=== PATIENT | female | born 1955 | race Caucasian/White ===

== ENCOUNTER 2021-05-12 13:54 | Inpatient (IN) | payer BC, SELFPAY ==
[2021-05-12] VITALS (13 sets, daily range): BP systolic 132–150; BP diastolic 71–86; PULSE 78–96; RESP 18; TEMP 36.8–37; O2SAT 90–100; BMI 52.0
--- NOTE | ~2021-05-12 | XR_ITS ---
XR chest 1V portable 05/22/2021 06:36 Indication: Respiratory failure Procedure: AP portable chest Comparison: Comparison to multiple prior studies sequentially, with oldest reviewed study dated 05/17. Findings: Cardiomegaly. Persistent patchy bilateral airspace. Right perihilar atelectasis. No signifi cant effusion or pneumothorax. Central line tip in the SVC. No pneumothorax. Impression: 1: Persistent bilateral airspace disease which may represent pneumonia and/or edema. 2: Cardiomegaly. Reviewed, dictated and finalized at location A. Impression: 1: Persistent bilateral airspace disease which may represent pneumonia and/or e veronica. 2: Cardiomegaly.
--- NOTE | ~2021-05-12 | XR_ITS ---
XR abdomen NG/feed tube insert DATE: 05/13/2021 06:24 INDICATION: Orogastric tube placement TECHNIQUE: Portable AP view on 05/09/2021 at 0613 hours COMPARISON: 05/13/2021 portable KUB at 0329 hours FINDINGS: The orogastric tube is present within the stomach. ET tube 6.5 cm above maolu Right internal jugular central venous catheter tip overlies superior vena cava. Severe bilateral consolidating pulmonary infiltrates are again noted. IMPRESSION: Orogastric tube in stomach Reviewed, dictated and finalized at Location A. Reviewed, dictated and finalized at location A. IMPRESSION: Orogastric tube in stomach
--- NOTE | ~2021-05-12 | XR_ITS ---
XR chest 1V portable DATE: 05/16/2021 05:40 INDICATION: Diffuse bilateral infiltrates TECHNIQUE: Portable AP chest on 05/16/2021 at 0506 hours COMPARISON: 05/15/2021 portable AP chest at 0517 hours FINDINGS: Cardiomegaly. Extensive bilateral pulmonary infiltrates predominating in the central and lower lung zones, with air bronchograms in the left retrocardiac area consistent with left lower lobe atelectasis and/or consol idation. Allowing for differences in degree of lung expansion, infiltrates appear relatively stable o r mildly increased since 05/15/2021. ET tube approximately 5.5 cm above malou. NG tube is noted passing into stomach. Right internal jugular central venous catheter tip overlies the superior vena cava. No pneumothorax. IMPRESSION: Stable or mildly increased bilateral pulmonary infiltrates since 05/15/2021 Reviewed, dictated and finalized at location A. IMPRESSION: Stable or mildly increased bilateral pulmonary infiltrates since 08/2021
--- NOTE | ~2021-05-12 | US_ITS ---
EXAMINATION: US venous doppler [facility] DATE: 05/12/2021 14:52 INDICATION: Lower limb swelling. TECHNIQUE: Grayscale ultrasound images without and with compression and Doppler ultrasound images of the bilateral lower extremity veins were obtained. COMPARISON: None. FINDINGS: The visualized portions of right common femoral vein, profunda (deep) femoral vein, femoral vein, pop liteal vein, peroneal veins, posterior tibial veins, and greater saphenous vein outflow are patent. The visualized portions of left common femoral vein, profunda femoral vein, femoral vein, popliteal v ein, peroneal veins, posterior tibial veins, and greater saphenous vein outflow are patent. IMPRESSION: 1. No deep venous thrombosis. Reviewed, dictated and finalized at location A.
--- NOTE | ~2021-05-12 | XR_ITS ---
XR abdomen NG/feed tube insert DATE: 05/13/2021 03:40 INDICATION: Orogastric tube placement TECHNIQUE: Portable AP view on 05/13/2021 at 0329 hours COMPARISON: None FINDINGS: The orogastric tube is not visualized within the lower chest or abdomen. Prominent gaseous distention of the stomach. Gaseous distention of multiple small bowel segments. IMPRESSION: Orogastric tube not visualized in the distal esophagus or stomach Reviewed, dictated and finalized at Location A. Reviewed, dictated and finalized at location A.
--- NOTE | ~2021-05-12 | XR_ITS ---
XR chest 1V portable 05/21/2021 06:07 Indication: Respiratory failure Procedure: AP portable chest Comparison: Comparison to multiple prior studies sequentially, with oldest reviewed study dated 05/16. Findings: Endotracheal tube tip 4 cm above the malou. NG tube in the stomach. Right IJ central line tip in SVC. Persistent patchy bilateral airspace disease unchanged. Possible small left effusion. No pneumothorax. No acute osseous abnormality. Impression: 1: No significant change to patchy bilateral airspace disease, compatible with pneumonia. Reviewed, dictated and finalized at location A. Impression: 1: No significant change to patchy bilateral airspace disease, compatible with pneumonia.
--- NOTE | ~2021-05-12 | XR_ITS ---
XR chest port-a-cath/central DATE: 05/13/2021 06:18 INDICATION: Central line placement TECHNIQUE: Portable AP chest on 05/13/2021 at 0607 hours COMPARISON: 05/13/2021 portable AP chest at 0 326 hours FINDINGS: ET tube is approximately 6.3 cm above malou; ideal range is 2-5 cm. Right internal jugular central venous catheter tip overlies the superior vena cava. Again noted are extensive severe bilateral consolidating pulmonary infiltrates, right greater than le ft. There is mild prominence of the minor fissure suggesting subpleural edema. No pneumothorax. Probable cardiomegaly. Aortic arch calcification. IMPRESSION: Right internal jugular central venous line placement, distal tip overlying superior vena cava ET tube 6.3 cm above malou; ideal range is 2-5 cm Persistent severe bilateral consolidating pulmonary infiltrates, right greater than left, prominence of the minor fissure, suggesting subpleural edema. Consider extensive pulmonary edema. Pneumonia is n ot excluded. Reviewed, dictated and finalized at Location A. Reviewed, dictated and finalized at location A. IMPRESSION: Right internal jugular central venous line placement, distal tip ov erlying superior vena cava ET tube 6.3 cm above malou; ideal range is 2-5 cm Persistent severe bilateral consolidating pulmonary infiltrates, right greater than left, prominence of the minor fissure, suggesting subpleural edema. Consid er extensive pulmonary edema. Pneumonia is not excluded.
--- NOTE | ~2021-05-12 | XR_ITS ---
EXAMINATION: XR chest 1V portable INDICATION: Diffuse bilateral infiltrates, respiratory failure TECHNIQUE: Portable AP chest at 0539 hours COMPARISON: 05/17/2021 FINDINGS: The endotracheal tube ends approximately 5.8 cm above the malou. The nasogastric tube is f ollowed as far as the stomach. Its tip is beyond the inferior margin of the radiograph. A right inter nal jugular catheter ends with its tip in the superior vena cava. Cardiomegaly is noted. Diffuse airs pace opacities persist without significant change. More focal opacification is seen in the left lung base. There is no pleural effusion or pneumothorax. IMPRESSION: 1. Stable diffuse lung disease, consistent with pneumonia and/or pulmonary edema and/or acute respira tory distress syndrome (ARDS). 2. More focal opacity of the left lung base is consistent with atelectasis versus pneumonia. Reviewed, dictated and finalized at location A. IMPRESSION: 1. Stable diffuse lung disease, consistent with pneumonia and/or pulmonary anel a and/or acute respiratory distress syndrome (ARDS). 2. More focal opacity of the left lung base is consistent with atelectasis vers us pneumonia.
--- NOTE | ~2021-05-12 | US_ITS ---
EXAMINATION: US abdomen limited DATE: 05/15/2021 12:49 INDICATION: Elevated liver function tests TECHNIQUE: Multiple grayscale and Doppler ultrasound images of the abdomen were obtained. COMPARISON: None available FINDINGS: The examination is significantly limited by the patient's body habitus and inability to fol low commands due to critical illness. Bowel gas obscures visualization of the pancreas. The visualize d portions of the pancreas are unremarkable. The liver demonstrates increased echogenicity, heterogen ous echotexture, and decreased through transmission. No surface nodularity. Normal hepatopetal flow i n the main portal vein. The gallbladder is grossly normal with no abnormal wall thickening, perichole cystic fluid or stones. The normal common bile duct measures 7 mm. Sonographic Blackwood sign is not ass essed due to patient condition. IMPRESSION: 1. Diffuse hepatic steatosis. Reviewed, dictated and finalized at location B.
--- NOTE | ~2021-05-12 | XR_ITS ---
XR chest 1V portable 05/24/2021 09:35 Indication: Shortness of breath Procedure: AP portable chest Comparison: 05/18/2021 Findings: Interval removal of central line. Cardiomegaly. There is improving bibasilar airspace disea se.. There is atherosclerosis and ectasia of the aorta. Impression: 1: Improving bibasilar airspace disease. Reviewed, dictated and finalized at location A. Impression: 1: Improving bibasilar airspace disease.
--- NOTE | ~2021-05-12 | XR_ITS ---
XR chest 1V portable DATE: 05/13/2021 02:56 INDICATION: Respiratory distress. Tancred frothy sputum. TECHNIQUE: Portable AP chest on 05/23/2021 at 0242 hours COMPARISON: None FINDINGS: Cardiomegaly. There are extensive bilateral consolidating pulmonary infiltrates, worse on t he right, with opacified right upper lobe with air bronchograms. Findings may be due to extensive mando ateral pneumonia and/or pulmonary edema. Cardiomegaly. There is minimal if any pleural effusion evident. No pneumothorax. IMPRESSION: Severe bilateral consolidating pulmonary infiltrates, right greater than left Reviewed, dictated and finalized at location A.
--- NOTE | ~2021-05-12 | US_ITS ---
EXAMINATION: US renal BI DATE: 05/14/2021 09:27 INDICATION: Acute kidney injury. TECHNIQUE: Multiple ultrasound grayscale images of the kidneys were obtained. COMPARISON: None. FINDINGS: The right kidney measures 9.3 x 4.7 x 5.7 cm. The left kidney measures 9.0 x 4.5 x 5.5 cm. The kidney s demonstrate normal parenchymal echogenicity. There is no hydronephrosis. The bladder is decompresse d by a Sommer catheter. IMPRESSION: 1. Normal kidney sizes. No hydronephrosis. Reviewed, dictated and finalized at location A.
--- NOTE | ~2021-05-12 | CT_ITS ---
EXAMINATION: CT brain wo con DATE: 05/26/2021 12:33 INDICATION: Left leg paresis TECHNIQUE: Computed tomography (CT) of the head was performed without intravenous contrast. The mA wa s adjusted according to patient size. Iterative reconstruction technique was employed. Exam dose: 68 1.00 mGy-cm total exam DLP. COMPARISON: None FINDINGS: Bilateral carotid siphon internal carotid artery calcification. No intracranial mass lesion or hemorrhage or cerebrovascular accident is evident. CT is not sensitive for detection of hyperacute nonhemorrhagic cerebrovascular accident. No midline shift or mass effect. There is moderate central and cortical cerebral atrophy. No subdural or epidural hematoma. No orbital mass lesion. There is soft tissue thickening in the dependent aspect of both sphenoid sinuses. The included parana debbie sinuses and the mastoid air cells are otherwise unremarkable. No fracture or bone destruction of the cranial vault. IMPRESSION: Cerebral atherosclerosis Moderate central and cortical cerebral atrophy Reviewed, dictated and finalized at Location A. Reviewed, dictated and finalized at location A.
--- NOTE | ~2021-05-12 | XR_ITS ---
XR chest 1V portable DATE: 05/14/2021 05:58 INDICATION: Diffuse bilateral infiltrates. Respiratory distress. TECHNIQUE: Portable AP chest on 05/14/2021 at 0530 hours COMPARISON: 05/13/2021 portable AP chest at 0607 hours FINDINGS: ET tube 6.3 cm above malou; ideal range is 2-5 cm. NG tube in stomach. Right internal urin bridget centimeters catheter tip overlies the superior vena cava. There are extensive bilateral pulmonary infiltrates patchy consolidation involving particularly the r ight upper and lower lung zones and left lower lung zone. The infiltrates are mildly improved on the right. There is minimal if any pleural effusion. No pneumothorax. IMPRESSION: Mild improvement in right-sided infiltrate since 05/23/2021 Reviewed, dictated and finalized at location A.
--- NOTE | ~2021-05-12 | XR_ITS ---
XR chest ET placement DATE: 05/13/2021 03:40 INDICATION: Respiratory distress, pink frothy sputum TECHNIQUE: Portable AP chest on 05/13/2021 at 0326 hours COMPARISON: 05/13/2021 portable AP chest at 0242 hours FINDINGS: ET tube in satisfactory position 4.3 cm above malou. An NG tube is introduced to the mid t horacic esophagus and then makes a U-turn and proceeds cephalad. Again noted are severe bilateral consolidating pulmonary infiltrates. IMPRESSION: Malpositioned NG tube which makes a U-turn in the mid thoracic esophagus. Repositioning i s recommended. ET tube in satisfactory position Persistent severe bilateral consolidating pulmonary infiltrates Reviewed, dictated and finalized at Location A. Reviewed, dictated and finalized at location A. IMPRESSION: Malpositioned NG tube which makes a U-turn in the mid thoracic esop hagus. Repositioning is recommended. ET tube in satisfactory position Persistent severe bilateral consolidating pulmonary infiltrates
--- NOTE | ~2021-05-12 | XR_ITS ---
XR chest 1V portable 05/20/2021 06:33 Indication: Respiratory failure Procedure: AP portable chest Comparison: Comparison to multiple prior studies sequentially, with oldest reviewed study dated 05/15. Findings: Cardiomegaly. Diffuse bilateral airspace disease unchanged. Focal right perihilar atelectas is. Endotracheal tube tip 4.6 cm above the malou. NG tube in the stomach. Right IJ central line tip in the SVC. Cardiomegaly. Possible small left effusion. No pneumothorax. Impression: 1: Unchanged diffuse bilateral airspace which may represent pneumonia or edema. 2: Cardiomegaly. Reviewed, dictated and finalized at location A. Impression: 1: Unchanged diffuse bilateral airspace which may represent pneumonia or edema. 2: Cardiomegaly.
--- NOTE | ~2021-05-12 | XR_ITS ---
XR chest 1V portable DATE: 05/17/2021 05:56 INDICATION: Diffuse bilateral infiltrates TECHNIQUE: Portable AP chest on 05/17/2021 at 0516 hours COMPARISON: 05/16/2021 portable AP chest at 0506 hours FINDINGS: ET tube tip approximately 5.7 cm above malou; ideal range is 2-5 cm. NG tube passing into stomach. Right internal jugular central venous catheter tip overlies the superio r vena cava. No evidence of pneumothorax. Extensive patchy bilateral pulmonary infiltrates are again noted, mildly improved since 05/16/2021. Ag ain noted is increased left retrocardiac density with micrograms consistent with left lower lobe atel ectasis/consolidation. IMPRESSION: Mild improvement of bilateral infiltrates since 05/16/2021; persistent left lower lobe ate lectasis/consolidation Reviewed, dictated and finalized at location A. IMPRESSION: Mild improvement of bilateral infiltrates since 05/16/2021; persiste nt left lower lobe atelectasis/consolidation
--- NOTE | ~2021-05-12 | XR_ITS ---
XR chest 1V portable DATE: 05/15/2021 05:37 INDICATION: Diffuse bilateral infiltrates TECHNIQUE: Portable AP chest on 05/15/2021 at 0517 hours COMPARISON: 05/14/2021 portable AP chest at 0530 hours FINDINGS: ET tube in satisfactory position 7 cm above malou; ideal range is 2-5 cm.. NG tube in stom ach. Right internal jugular central venous catheter tip overlies the superior vena cava. Cardiomegaly. Aortic arch calcification. There are are extensive bilateral pulmonary infiltrates with particularly prominent atelectasis and/o r consolidation of the left lower lobe with persistent increased retrocardiac density on the left and air bronchograms. There is mild interval improvement of right-sided consolidating infiltrates since 05/14/2021. IMPRESSION: Mild improvement in right-sided infiltrate since 05/14/2021; persistent prominent left low er lobe atelectasis and/or consolidation ET tube 7 cm above malou; ideal range is 205 cm Reviewed, dictated and finalized at location A. IMPRESSION: Mild improvement in right-sided infiltrate since 05/14/2021; persist ent prominent left lower lobe atelectasis and/or consolidation ET tube 7 cm above malou; ideal range is 205 cm
--- NOTE | 2021-05-12 11:35 | ADMGEN ---
This patient, Avelino Soto, was admitted to IMU Room 204-01. Patient/family oriented to hospital policies and general routines including ID bracelet, bed and alarms, visiting hours, pain management, procedures, bathroom and other care routines, personal items, smoking policy, room service/diet, and visiting hours. Information on how to activate the Rapid Response Team has been discussed. Patient/Family are encouraged to report perceived risks to care and to ask questions if they do not understand what they are told or what they should do.
--- NOTE | 2021-05-12 13:01 | PM.IMHP ---
H&P: HPI History of Present Illness Date/Time: 05/12/21 13:01 Chief Complaint: DYSPNEA Narrative: 65-year-old female who recovered from COVID-19 pneumonia in August 2020 was in her usual state of health until the morning of May 12. She awakened at 5:00 a.m. to urinate. She was short of breath walking to and from the bathroom. Upon getting back to her bed and sitting down she began to shake. She had chills and chest tightness. She was nauseated and ?spit up some clear sputum but did not vomit. summoned EMS and she was taken to [facility] in [facility]. She denied recent exposure to ill individuals. No recent travel. 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 No exposure to wild animals or to domestic gated farm animals or pets. Denied drinking untreated water. Drinks city water. She did quit smoking about 15 years ago. She describes herself as a social smoker only a few cigarettes a week. However recently she began they being a 5% nicotine product made by [employer]. She does drink alcohol but only 3 drinks per week. She does not imbibe in any recreational drugs including medical cannabis. Since her COVID-19 illness in August 2020 both she and her have experience chronic fatigue and chronic dyspnea on exertion. She suffers from chronic back pain due to arthritis and chronic T11 through L1 compression fractures. She does not take narcotics. Her diabetes has been fairly well controlled recently. She is also treated for hypertension and hyperlipidemia and gastroesophageal reflux disease. However she denied recent choking or coughing while eating. She has no prior history of lung disease except for episodes of pneumonia in the past. Her last pneumonia vaccination was about 8 years ago. At [facility] she was noted to have an EKG was sinus tachycardia and nonspecific ST changes and an elevated troponin on that increased from baseline 0.071 to 2.0. She was hypoxemic with oxygen saturation 82% it did not improve with non-rebreather mass with did improve with 100% oxygen and BiPAP. Chest x-ray revealed right lung infiltrates. CTA chest revealed no pulmonary embolus but right long consolidation with alveolar septal thickening and air bronchograms prominent throughout the right lung with scattered ground-glass infiltrates in the left lung. [place] [address] 86% neutrophils but no immature forms. Rapid COVID-19 screen negative. BNP was 235. D-dimer 2080. Creatine 18 mg/dl, BUN 184 mg/dl (creainine 1 point over normal range for that lab). Mag 1.0 md/dl and was supplemented at the ED. Review of Systems Review of Systems: All systems reviewed & are unremarkable except as noted in HPI and below PMFSH Past Medical History Medical History Chronic depression Chronic low back pain without sciatica Cirrhosis of liver Closed compression fracture of body of L1 vertebra Compression fracture of body of thoracic vertebra Essential hypertension Former smoker GERD (gastroesophageal reflux disease) Hyperlipidemia Morbid obesity with BMI of 50.0-59.9, adult YADIRA (obstructive sleep apnea) Post-COVID chronic fatigue Type 2 diabetes mellitus with hyperglycemia Vaping nicotine dependence, tobacco product Surgical History Surgical History (Updated 05/12/21 @ 13:30 by Rene Green MD) Hx of cataract removal with insertion of prosthetic lens Hx of cholecystectomy Family History Family History (Updated 05/12/21 @ 14:00 by Rene Green MD) Father Acute myocardial infarction Chronic obstructive pulmonary disease Congestive heart failure Hypertension Alzheimer disease Mother Hypertension ESRD (end stage renal disease) Social History Social History (Updated 05/12/21 @ 14:02 by Rene Green MD) Smoking status: Current every day smoker Tobacco type: e-cigarettes/vaping
[2021-05-12] MEDS: IBUPROFEN 400 MG TABLET PO (13:31)
[2021-05-12 13:37] LABS: Glucose Point of Care 221 mg/dl (65-105)
[2021-05-12] MEDS: LOSARTAN POTASSIUM 12.5 MG TABLET PO (14:03)
[2021-05-12] MEDS: ATORVASTATIN 10 MG TABLET PO (14:03)
[2021-05-12] MEDS: FUROSEMIDE 40 MG TABLET PO (14:03)
[2021-05-12] MEDS: METOPROLOL SUCCINATE EXT REL 50 MG TABCR PO (14:03)
[2021-05-12] MEDS: allopurinoL 100 MG TABLET PO (14:04)
[2021-05-12] MEDS: CITALOPRAM HYDROBROMIDE 10 MG TABLET 40 MG PO (14:04)
[2021-05-12] MEDS: ARIPiprazole 2 MG TABLET PO (14:04)
[2021-05-12 15:45] LABS: Anion Gap 10 mmol/L (8-16); Blood Urea Nitrogen 16 mg/dL (7-17); Carbon Dioxide 24 mmol/L (22-30); Chloride 99 mmol/L (98-107); Estimated CRCL calculation 80 ml/min; Estimated Glomerular Filt Rate > 60; Glucose 291 mg/dL (65-110); Magnesium 1.6 mg/dL (1.6-2.3); Phosphorus 3.1 mg/dL (2.5-4.5); Potassium 4.4 mmol/L (3.4-5.0); Sodium 133 mmol/L (137-145)
[2021-05-12] MEDS: INSULIN ASPART (*BKC) 100 UNITS/ML SUB-Q (16:41)
[2021-05-12 16:42] LABS: Add Urine Microscopic? YES; Appearance Urine Clear (Clear); Bilirubin Urine Negative (Negative); Blood Urine 1+ (Negative); Color Urine Straw (Yellow); Glucose Urine UA 2+ mg/dL (Negative); Ketones Urine Negative (Negative); Leukocyte Esterase Ur Negative LEU/UL (Negative); Mucus Urine Rare /lpf; Nitrate Urine Negative (Negative); Protein Urine 2+ mg/dL (Negative); RBC Urine 0-2 /hpf (0-2); Specific Grav Ur 1.016 (1.001-1.035); Urobilinogen Urine Negative mg/dL (<2.0)
[2021-05-12 17:11] LABS: Glucose Point of Care 308 mg/dl (65-105)
--- NOTE | 2021-05-12 19:37 | PCRCNOTE ---
Pt was sp02 was 81% on CPAP OF 13, FI02 100%, Pt switched to BIPAP per RN request setting 24/07, RR-12, Fi02 100%. ABG order was requested from RT. Pt Sp02 93% on new setting. RT need new order for BIPAP setting. Current VT 819ML, RR-22 bpm, MV-23ML, SP02 94%.
[2021-05-12 21:23] LABS: Glucose Point of Care 364 mg/dl (65-105)
--- NOTE | 2021-05-12 21:33 | PCRCNOTE ---
Pt placed back on CPAP 13 as pervious setting. Pt RR-18, SP02 98%, Fi02 80%. Pt is resting, no SOB or increased WOB present at this time. pt breath sound are bilaterally diminished/coarse. RT suggest breathing TX Q6 for pt care plan.
[2021-05-13] VITALS (45 sets, daily range): BP systolic 64–240; BP diastolic 45–124; PULSE 71–107; RESP 13–77; TEMP 37–37.7; O2SAT 62–100; BMI 48.4
[2021-05-13 02:42] LABS: Alveolar/Arterial O2 Gradient 596.5 mmHg; Base Excess ABG -3.7 mEq/l (+/-2.0); Carboxyhemoglobin 0.4 % THb (0-2.0); Fractional Inspired Oxygen 100 %; HCO3 ABG 26.2 mEq/l (22.0-26.0); Methemoglobin ABG 0.1 %THb (0-1.5); Oxygen Content ABG 15.3 %vol (16.0-22.0); Oxyhemoglobin 73.2 % THb (90.0-100.0); PO2 FiO2 Ratio Arterial Blood 0.46 %; Reduced Hemoglobin 26.3 %THb (0-5.0); Total Hemoglobin 14.9 g/dL (12.0-18.0)
[2021-05-13] MEDS: MORPHINE SULFATE (*CRX) 2 MG/ML INJ IV PUSH (03:02)
[2021-05-13] MEDS: FUROSEMIDE INJ 40 MG/4 ML VIAL IV PUSH ×2 (03:04→06:42)
[2021-05-13 03:13] LABS: PCO2 ABG 70.3 mmHg (35.0-45.0); PO2 ABG 46.2 mmHg (80.0-100.0)
[2021-05-13 03:14] LABS: Modified Allen's Test Pass; Oxygen Saturation ABG 70.7 % (95.0-100.0); Site Drawn RIGHT RADIAL
[2021-05-13 03:15] LABS: Device BIPAP
--- NOTE | 2021-05-13 03:16 | PC.NURSE ---
This patient, Avelino Soto, was transferred to [ ICU 5] on 05/13/21 at 0245. Personal belongings sent with patient. Report given to [Michael skaggs ]. Appropriate documentation sent with patient.
[2021-05-13] MEDS: FENTANYL 2,500MCG/NS250ML(*CRX 2,500 MCG/250 ML BAG 15 MCG IV CONT ×2 (03:30→18:21)
[2021-05-13] MEDS: MIDAZOLAM 100MG/NS 100ML(*CRX) 100 MG/100 ML BAG IV CONT (03:30)
--- NOTE | 2021-05-13 03:34 | WPDPROCEDUR ---
Procedures Intubation Intubation Date: 05/13/21 Intubation Time: 03:10 Consent: PATIENT AGREED TO INTUBATION AND VENTILATOR SUPPORT. A pre-procedural Time-Out was completed immediately before starting the procedure and confirmed: Patient Identification, Site, Procedure, Patient Position and the Availability of Requisite Equipment: Yes Sedative: etomidate Mg given: 30 Paralytic: succinylcholine Mg given: 80 Laryngoscope: fiber optic video scope ET tube size: cuffed Tube secured depth (cm): 23 Tube secured location: lips Tube placement confirmation: visualized tube passing through cords, equal breath sounds bilaterally and confirmation by capnometry Patient tolerated procedure: well and no complications Intubation complications: none
--- NOTE | 2021-05-13 03:37 | PM.IMPN ---
Progress Note: A&P Assessment and Plan (1) Flash pulmonary edema: Code(s): J81.0 - Acute pulmonary edema Status: Acute Assessment and Plan: Patient was on maxed out BiPAP Finally agreed to ventilator support Placed on vent support Discussed with Dr. Chen senior front end developer. Vent management as per senior front end developer/cc (2) Acute respiratory failure with hypoxia: Code(s): J96.01 - Acute respiratory failure with hypoxia Status: Acute Assessment and Plan: On vent support now. (3) CAP (community acquired pneumonia): Qualifiers: Laterality: right Lung location: unspecified part of lung Qualified Code(s): J18.9 - Pneumonia, unspecified organism Code(s): J18.9 - Pneumonia, unspecified organism Status: Acute Assessment and Plan: Will switch to broad espectrum. (4) Type 2 myocardial infarction: Code(s): I21.A1 - Myocardial infarction type 2 Status: Acute Assessment and Plan: ISS as needed (5) Hypomagnesemia: Code(s): E83.42 - Hypomagnesemia Status: Acute Assessment and Plan: Replaced as needed (6) Type 2 diabetes mellitus with hyperglycemia: Qualifiers: Diabetes mellitus fci insulin use: without fci use Qualified Code(s): E11.65 - Type 2 diabetes mellitus with hyperglycemia Code(s): E11.65 - Type 2 diabetes mellitus with hyperglycemia Status: Acute (7) Essential hypertension: Code(s): I10 - Essential (primary) hypertension Status: Acute Assessment and Plan: Continue to monitor (8) YADIRA (obstructive sleep apnea): Code(s): G47.33 - Obstructive sleep apnea (adult) (pediatric) Status: Acute Assessment and Plan: On vent now (9) Post-COVID chronic fatigue: Code(s): R53.82 - Chronic fatigue, unspecified; B94.8 - Sequelae of other specified infectious and parasitic diseases Status: Acute Assessment and Plan: Follow up in the outpatient setting. (10) GERD (gastroesophageal reflux disease): Qualifiers: Esophagitis presence: esophagitis presence not specified Qualified Code(s): K21.9 - Gastro-esophageal reflux disease without esophagitis Code(s): K21.9 - Gastro-esophageal reflux disease without esophagitis Status: Acute Assessment and Plan: Continue PPI (11) Chronic low back pain without sciatica: Qualifiers: Back pain laterality: bilateral Qualified Code(s): M54.5 - Low back pain; G89.29 - Other chronic pain Code(s): M54.5 - Low back pain; G89.29 - Other chronic pain Status: Acute (12) Cirrhosis of liver: Qualifiers: Hepatic cirrhosis type: unspecified hepatic cirrhosis Ascites presence: without ascites Qualified Code(s): K74.60 - Unspecified cirrhosis of liver Code(s): K74.60 - Unspecified cirrhosis of liver Status: Acute Assessment and Plan: Screen for hep B, C (13) Vaping nicotine dependence, tobacco product: Code(s): F17.290 - Nicotine dependence, other tobacco product, uncomplicated Status: Acute Assessment and Plan: NICOTINE PATCH NEEDED (14) Morbid obesity with BMI of 50.0-59.9, adult: Code(s): E66.01 - Morbid (severe) obesity due to excess calories; Z68.43 - Body mass index [BMI] 50.0-59.9, adult Status: Acute Assessment and Plan: NPO NOW (15) Chronic depression: Code(s): F32.9 - Major depressive disorder, single episode, unspecified Status: Acute Subjective Date/time seen: 05/13/21 03:37 Review of Systems Review of Systems: All systems reviewed & are unremarkable except as noted in HPI and below Exam Narrative: SITTING IN UPRIGHT POSITION IN SEVERE RESPIRATORY DISTRESS BiPAP on Const: General: well developed, alert, awake and acute distress Nutritional Appearance: obese centrally obese Orientation/consciousness: patient oriented x3 HENMT: Head: norm
--- NOTE | 2021-05-13 03:52 | PC.NURSE ---
Michael Hernández RN spoke with Dr. Chen regarding current vital signs and vent settings. Start nimbex drip per protocol. 20 hydralazine IV x1, 40 Lasix IV x1. Nitro Drip for BP control.
[2021-05-13] MEDS: CISATRACURIUM BESYLATE 200 MG in DEXTROSE 5% 80 ML 12.78 ML IV CONT (04:00)
[2021-05-13 04:56] LABS: Hematocrit 40.1 % (37.0-47.0); Hemoglobin 12.7 g/dL (12.0-15.0); Mean Corpuscular HGB Conc 31.7 g/dl (32-36); Mean Corpuscular Hemoglobin 30.2 pg (26-34); Mean Corpuscular Volume 95.5 fl (80-100); Mean Platelet Volume 10.4 fl (7.4-10.4); Platelet Count Result 317 k/mm3 (150-375); Red Cell Distribution Width 14.8 % (11.5-14.5); White Blood Count 23.2 K/mm3 (4.5-10.0)
[2021-05-13 04:59] LABS: Alveolar/Arterial O2 Gradient 611.6 mmHg; Base Excess ABG -2.4 mEq/l (+/-2.0); Carboxyhemoglobin 0.5 % THb (0-2.0); Fractional Inspired Oxygen 100 %; HCO3 ABG 24.3 mEq/l (22.0-26.0); Methemoglobin ABG 0.2 %THb (0-1.5); Oxygen Content ABG 16.5 %vol (16.0-22.0); Oxyhemoglobin 84.8 % THb (90.0-100.0); PCO2 ABG 49.3 mmHg (35.0-45.0); PO2 ABG 52.1 mmHg (80.0-100.0); PO2 FiO2 Ratio Arterial Blood 0.52 %; Reduced Hemoglobin 14.5 %THb (0-5.0); Total Hemoglobin 13.9 g/dL (12.0-18.0); pH ABG 7.311 (7.350-7.450)
[2021-05-13 05:00] LABS: Oxygen Saturation ABG 83.5 % (95.0-100.0)
[2021-05-13 05:01] LABS: Arterial Blood Gas Vent Mode PRESSURE CONTROL; Arterial Blood Gas Ventilator rate 24 /MIN; Device VENTILATOR; Modified Allen's Test Pass; Peak Inspiratory Pressure 22 cmH2O; Site Drawn LEFT RADIAL
[2021-05-13 05:02] LABS: Arterial Blood Gas PEEP 17 cmH2O
[2021-05-13 05:04] LABS: Hemoglobin A1C 6.5 % (<5.7)
--- NOTE | 2021-05-13 05:10 | PCRCNOTE ---
Pt intubated at [address] Mata with 7.5 ETT, secured at 23 at the lip. Copious amounts pink frothy sputum suctioned from mouth and ETT. Poor SpO2s at all times. Initial vent settings: PCV 22, RR 24, PEEP 17, and FiO2 100%.
[2021-05-13 05:24] LABS: Alanine Aminotransferase 20 U/L (4-35); Alkaline Phosphatase 158 U/L (38-126); Anion Gap 12 mmol/L (8-16); Aspartate Amino Transferase 46 U/L (14-36); Bilirubin,Total 0.8 mg/dL (0.2-1.3); Blood Urea Nitrogen 22 mg/dL (7-17); Calcium 9.2 mg/dL (8.4-10.2); Carbon Dioxide 23 mmol/L (22-30); Chloride 102 mmol/L (98-107); Estimated CRCL calculation 61 ml/min; Estimated Glomerular Filt Rate 45; Glucose 300 mg/dL (65-110); Magnesium 1.6 mg/dL (1.6-2.3); Potassium 4.2 mmol/L (3.4-5.0); Sodium 137 mmol/L (137-145)
[2021-05-13 05:40] LABS: NT Pro B Type Natriuretic Pept 13400 pg/mL (5-100)
--- NOTE | 2021-05-13 05:47 | ED.PROCEDURE ---
Procedures Central Line Placement Right IJ: Central Line Date: 05/13/21 Central Line Time: 05:48 Patient Position: supine Patient placed on monitor/pulse ox: Yes Provider Prep: mask, sterile gown, sterile gloves, Max. sterile barrier precautions, cap and hand hygiene with conventional soap/water or alcohol based hand rub Central line prep: 2% Chlorhexidine scrub and sterile full body sheet applied Sterile US Technique with sterile gel/sterile probe covers: Yes Central line lumen inserted: triple Post Procedure: sutured in place, good blood return, all ports aspirated, flushed, capped, transparent dressing, securement product and aseptic technique maintained throughout procedure Post procedure x-ray: tip of catheter in good position and no pneumothorax seen Patient tolerated procedure: well Complications: none
[2021-05-13] MEDS: ETOMIDATE 20 MG/10 ML AMPUL 30 MG IV PUSH (06:36)
[2021-05-13] MEDS: ROCURONIUM BROMIDE 50 MG/5 ML VIAL 150 MG IV PUSH (06:37)
[2021-05-13] MEDS: CISATRACURIUM BESYLATE 20 MG/10 ML VIAL 21.3 MG IV PUSH (06:41)
[2021-05-13] MEDS: hydrALAZINE HCL 20 MG/ML VIAL IV PUSH (06:42)
[2021-05-13 06:53] LABS: Free T4 Free Thyroxine Reflex 0.67 ng/dL (0.78-2.19)
[2021-05-13 07:42] LABS: Lactic Acid Reflex 2.4 mmol/L (0.7-2.1)
--- NOTE | 2021-05-13 07:55 | ECG_ITS ---
Measurements Intervals Holden Rate: 86 P: 60 RI: 158 QRS: 74 QRSD: 89 T: 52 QT: 432 QTc: 518 Interpretive Statements SINUS RHYTHM PROLONGED QT INTERVAL ABNORMAL ECG Electronically Signed On 05-13-2021 9:36:19 CDT by Rolan Esquivel D.O.
--- NOTE | 2021-05-13 08:04 | ECHO_ITS ---
Patient Info Name: Avelino Soto Age: 65 years : 1955 Gender: Female Ht: 65 in Wt: 291 lbs BSA: 2.54 m2 HR: 80 bpm BP: 64 / 50 mmHg Heart Rhythm: Sinus Rhythm Technical Quality: Good Exam Date: 05/13/2021 8:47 AM Exam Location: [facility] Pul[facility] Patient Status: Inpatient Admit Date: 05/12/2021 Staff Ordering Physician: Stella Chen MD Bar Tacker: Darian Blackwood, OMAYRA, RT Attending Provider: Rene Green MD Referring Physician: Gustavo TORRES; Exam Type: CA echo doppler color flow Study Info Indications I27.82 - Chronic pulmonary embolism Complete two-dimensional, color flow and Doppler transthoracic echocardiogram is performed. Summary 1. Complete two-dimensional, color flow and Doppler transthoracic echocardiogram is performed. 2. Technically difficult study with limited views. Regional wall motion assessment limited due to poor endomyocardial border definition in several views. 3. Left ventricular chamber dimension is normal. 4. Left ventricular systolic function is normal, estimated at 55-60%. 5. There is moderately increased left ventricular wall thickness. 6. The left ventricular diastolic function is grade II diastolic dysfunction. 7. Right ventricular systolic function is mild to moderately reduced with relative sparing of the apex consistent with Whitehead sign which can be seen with pulmonary embolism and/or right ventricular infarction. Clinical correlation advised.. 8. There is mild aortic valve stenosis with a peak velocity of 205 cm/s, mean gradient of 9 mmHg, and aortic valve area of 1.7 cm2. 9. Mild pulmonary hypertension, estimated pulmonary arterial systolic pressure is 37 mmHg. Left Ventricle Left ventricular chamber dimension is normal. Left ventricular systolic function is normal, estimated at 55-60%. There is moderately increased left ventricular wall thickness. The left ventricular diastolic function is grade II diastolic dysfunction. Technically difficult study with limited views. Regional wall motion assessment limited due to poor endomyocardial border definition in several views. Right Ventricle Right ventricular chamber dimension is normal. Right ventricular systolic function is mild to moderately reduced with relative sparing of the apex consistent with Whitehead sign which can be seen with pulmonary embolism and/or right ventricular infarction. Clinical correlation advised.. Left Atria Left atrial chamber dimension is not well visualized. Right Atria Right atrial chamber dimension is not well visualized. Aortic Valve The aortic valve is not well visualized. There is mild aortic valve stenosis with a peak velocity of 205 cm/s, mean gradient of 9 mmHg, and aortic valve area of 1.7 cm2. There is no aortic valve regurgitation. There is mild aortic valve calcification. Pulmonic Valve The pulmonic valve is not well visualized. There is mild pulmonic regurgitation. Mitral Valve The mitral valve has normal leaflets. There is trace mitral valve regurgitation. The mitral valve annulus is mildly calcified. Tricuspid Valve The tricuspid valve leaflets are not well visualized. There is trace tricuspid valve regurgitation. Mild pulmonary hypertension, estimated pulmonary arterial systolic pressure is 37 mmHg. Pericardium/Pleural The pericardium appears normal. There is small pericardial effusion. Inferior Vena Cava Normal inferior vena cava with >50% collapse upon inspiration consistent with normal right a
[2021-05-13 08:55] LABS: Alveolar/Arterial O2 Gradient 561.9 mmHg; Base Excess ABG -0.6 mEq/l (+/-2.0); Fractional Inspired Oxygen 100 %; HCO3 ABG 25.9 mEq/l (22.0-26.0); Oxygen Content ABG 19.5 %vol (16.0-22.0); Oxygen Saturation ABG 97.2 % (95.0-100.0); Oxyhemoglobin 96.4 % THb (90.0-100.0); PCO2 ABG 49.8 mmHg (35.0-45.0); PO2 ABG 101.3 mmHg (80.0-100.0); PO2 FiO2 Ratio Arterial Blood 1.01 %; Total Hemoglobin 14.3 g/dL (12.0-18.0); pH ABG 7.334 (7.350-7.450)
[2021-05-13 08:57] LABS: Device VENTILATOR; Site Drawn RIGHT BRACHIAL
[2021-05-13 08:58] LABS: Arterial Blood Gas PEEP 15 cmH2O; Arterial Blood Gas Vent Mode PRESSURE CONTROL; Arterial Blood Gas Ventilator rate 24 /MIN; Peak Inspiratory Pressure 22 cmH2O
[2021-05-13] MEDS: HEPARIN SOD/D5W 100 UNITS/ML 25,000 UNITS/250 ML BAG 10 UNITS IV CONT (09:52)
[2021-05-13] MEDS: HEPARIN SODIUM 5,000 UNITS/ML VIAL 4000 UNITS IV PUSH ×2 (09:53→18:23)
[2021-05-13] MEDS: MINERAL OIL/WHITE PETROLATUM OINTMENT 1 APPLIC EACH EYE ×2 (09:53→21:08)
[2021-05-13] MEDS: ATORVASTATIN 10 MG TABLET PO (09:53)
[2021-05-13 10:16] LABS: Hemoglobin 12.7 g/dL (12.0-15.0); Mean Corpuscular HGB Conc 31.8 g/dl (32-36); Mean Corpuscular Hemoglobin 30.5 pg (26-34); Mean Corpuscular Volume 95.9 fl (80-100); Mean Platelet Volume 10.3 fl (7.4-10.4); Platelet Count Result 359 k/mm3 (150-375); Red Blood Count 4.17 M/mm3 (4.2-5.4); Red Cell Distribution Width 15.1 % (11.5-14.5); White Blood Count 28.9 K/mm3 (4.5-10.0)
[2021-05-13 10:28] LABS: INR 1.2; Prothrombin Time 14.7 Seconds (11.1-14.7)
[2021-05-13 10:29] LABS: Reflex Lactic Acid Yes or No Add Lactic
[2021-05-13 10:31] LABS: Partial Thromboplastin Time 148.6 SECONDS (22.3-36.8)
[2021-05-13 10:56] LABS: Glucose Point of Care 267 mg/dl (65-105)
[2021-05-13] MEDS: INSULIN ASPART (*BKC) 100 UNITS/ML SUB-Q ×3 (11:01→18:34)
[2021-05-13] MEDS: NOREPINEPHRINE 8 MG/D5W 250 ML 8 MG/250 ML BAG 37.5 MG IV CONT (11:04)
[2021-05-13 11:41] LABS: Lactic Acid 2.1 mmol/L (0.7-2.1)
--- NOTE | 2021-05-13 11:46 | WPDCNINT ---
Assessment and Plan Assessment and plan (1) Acute respiratory failure with hypoxia: Code(s): J96.01 - Acute respiratory failure with hypoxia Status: Acute Assessment and Plan: Pain presented with acute shortness of breath likely related NSTEMI, shock, pulmonary edema, pneumonia -patient is intubated overnight, was very hypoxic, requiring PEEP of 17, 100% FiO2 and pressure support ventilation -PEEP this morning with decreased to 15, O2 sats have been adequate, will start weaning FiO2 as tolerated -repeat ABGs much improved this morning -05/13/2021 chest x-ray: Persistent is severe bilateral consolidating pulmonary infiltrates left suggesting pulmonary edema versus pneumonia -will start bronchodilators -continue Zosyn and vancomycin -sedated with fentanyl, Versed fusions, patient also neuromuscular blockade for vent synchrony -on 05/12/2021: CTA chest at the [facility] in [facility], revealed no pulmonary embolism but right lung consolidation with alveolar septal thickening and air bronchograms prominent throughout the right lung with scattered ground-glass infiltrates in the left lung (2) Shock: Code(s): R57.9 - Shock, unspecified Status: Acute Assessment and Plan: Cardiogenic versus septic -patient with bilateral diffuse infiltrates, likely pulmonary edema was pneumonia -patient was diuresed, dropped her blood pressures and now is on Levophed, will maintain mean arterial pressures > 65 mmHg -BOONE, elevated lactic acid, lactic acid within normal limits -continue Zosyn and vancomycin -will obtain blood, urine and sputum cultures (3) NSTEMI (non-ST elevated myocardial infarction): Code(s): I21.4 - Non-ST elevation (NSTEMI) myocardial infarction Status: Acute Assessment and Plan: Patient with elevated troponin, no ST-T changes on the EKGs this morning -chest x-ray shows bilateral diffuse infiltrates likely pulmonary edema -stat echo has been ordered and completed await report -patient started on aspirin, heparin infusion -due to patient being on vasopressors, did not start beta blockers -cardiology has been consulted, -troponins increased to 3.71 this morning (4) Type 2 diabetes mellitus with hyperglycemia: Qualifiers: Diabetes mellitus assisted insulin use: without assisted use Qualified Code(s): E11.65 - Type 2 diabetes mellitus with hyperglycemia Code(s): E11.65 - Type 2 diabetes mellitus with hyperglycemia Status: Acute Assessment and Plan: Patient hyperglycemic history of diabetes, -continue sliding scale insulin and Accu-Cheks -add Lantus -hemoglobin A1c 6.5 this and (5) Essential hypertension: Code(s): I10 - Essential (primary) hypertension Status: Acute Assessment and Plan: History of essential hypertension, currently holding all antihypertensive (6) Cirrhosis of liver: Qualifiers: Hepatic cirrhosis type: unspecified hepatic cirrhosis Ascites presence: without ascites Qualified Code(s): K74.60 - Unspecified cirrhosis of liver Code(s): K74.60 - Unspecified cirrhosis of liver Status: Acute Assessment and Plan: History of cirrhosis, LFTs have been within normal limits (7) DVT prophylaxis: Code(s): Z29.9 - Encounter for prophylactic measures, unspecified Status: Acute Assessment and Plan: DVT prophylaxis: Heparin infusion Stress ulcer prophylaxis: Protonix (8) Suspected 2019 novel coronavirus infection: Code(s): Z20.822 - Contact with and (suspected) exposure to COVID-19 Status: Acute Assessment and Plan: SARS-CoV-2 PCR has been obtained and pending -rapid COVID test at [facility] -according the patient's , patient and her had tested positive for COVID in August 2020, they both have been vaccinated with Moderna vaccine in December 2020 Additional Plan discussed with patient's , Sterling rick
[2021-05-13 11:51] LABS: Platelet Estimate Adequate (Adequate)
[2021-05-13 11:52] LABS: Hypochromasia 1+ (NORMAL)
[2021-05-13 11:53] LABS: Band Neutrophils Percent 9 % (0-6); Lymphocytes Absolute Manual 0.86 K/mm3 (1.1-4.5); Lymphocytes Percent Manual 3 % (18-44); Monocytes Absolute Manual 1.73 K/mm3 (0.1-0.90); Monocytes Percent Manual 6 % (3-9); Neutrophils Absolute Manual 26.29 K/mm3 (1.7-7.2); Neutrophils Percent Manual 82 % (46-73); Total Cells Counted 100
[2021-05-13] MEDS: CISATRACURIUM BESYLATE 200 MG in DEXTROSE 5% 80 ML 8.52 ML IV CONT ×2 (11:59→21:04)
[2021-05-13] MEDS: INSULIN GLARGINE (*BKC) 100 UNITS/ML 10 UNITS SUB-Q (13:26)
[2021-05-13] MEDS: ALBUTEROL SULFATE NEB 2.5 MG/0.5 ML INH INHALATION ×2 (14:18→20:36)
[2021-05-13] MEDS: IPRATROPIUM BR 0.02% INH SOLN 0.5 MG/2.5 ML VIAL INHALATION ×2 (14:18→20:36)
[2021-05-13 14:32] LABS: Expiratory Pressure 13 cmH2O; Inspiratory Pressure 13 cmH2O
[2021-05-13] MEDS: CENTRAL LINE FLUSH 10 ML IV PUSH ×3 (15:55→21:08)
[2021-05-13] MEDS: PANTOPRAZOLE SODIUM IV 40 MG VIAL IV PUSH (15:55)
[2021-05-13 16:04] LABS: Glucose Point of Care 332 mg/dl (65-105)
--- NOTE | 2021-05-13 17:19 | PM.CNCAR ---
Assessment and Plan Additional Plan 65-year-old white female with: Troponinemia this is an example of type 2 myocardial infarction in the setting of severe hypoxemia because of pneumonia. There is no other evidence to suggest that this is an acute coronary event. Aggressive care with antibiotics and mechanical ventilation are being provided in the ICU. Echocardiogram does not suggest any significant myocardial injury in the way of an epicardial coronary problem. The chest x-ray has features that appear to be typical of COVID pneumonia however 1 would hope she is a low risk for this having had COVID and being fully vaccinated. COVID swab currently is pending and probably will be back till tomorrow. Will follow with you during this hospitalization at this point there are no specific cardiac recommendations to make Sterling Davis MD [facility] History of Present Illness History of Present Illness Consult date/time: 05/13/21 17:19 Reason For Visit: Pneumonia/acute respiratory failure with hypoxia Narrative: This is a 65-year-old patient I am seeing at the request of the hospitalist service because of elevated troponin level. She apparently does not have any history of significant cardiac problems prior to this she was transferred here from [facility] in [facility] for admission because of pneumonia hypoxemia requiring advance care. Following arrival here at [place] she has been intubated placed on mechanical ventilator support and is in the ICU. When she arrived at the referring hospital's emergency room she was significantly hypoxemic. Apparently she has been feeling poorly for the last week or 2. She is currently in the ICU sedated and on a mechanical ventilator obviously not capable of providing any additional history. The patient had troponin levels done following admission which are moderately elevated. Specifically the levels are 2.6 and 3.7. Electrocardiogram shows a sinus mechanism with prolonged QT interval but no acute ST segment abnormalities. Echocardiogram done this morning demonstrates normal-appearing left ventricular systolic function with an ejection fraction that appears to be about 60%. She has mild aortic valve stenosis with a valve area of 1.7. There are no apparent regional wall motion abnormalities. Chest x-ray shows a severe pneumonia with consolidation of most of the right lung and the lower half of the left lung. Review of Systems Review of Systems: ROS unobtainable: Yes unobtainable due to endotracheal tube PMFSH Past Medical History Medical History Chronic depression Chronic low back pain without sciatica Cirrhosis of liver Closed compression fracture of body of L1 vertebra Compression fracture of body of thoracic vertebra Essential hypertension Former smoker GERD (gastroesophageal reflux disease) Hyperlipidemia Morbid obesity with BMI of 50.0-59.9, adult YADIRA (obstructive sleep apnea) Post-COVID chronic fatigue Type 2 diabetes mellitus with hyperglycemia Vaping nicotine dependence, tobacco product Surgical History Surgical History (Updated 05/12/21 @ 13:30 by Rene Green MD) Hx of cataract removal with insertion of prosthetic lens Hx of cholecystectomy Family History Family History (Updated 05/12/21 @ 14:00 by Rene Green MD) Father Acute myocardial infarction Chronic obstructive pulmonary disease Congestive heart failure Hypertension Alzheimer disease Mother Hypertension ESRD (end stage renal disease) Social History Social History (Updated 05/12/21 @ 14:02 by Rene Green MD) Smoking status: Current every day smoker Tobacco type: e-cigarettes/vaping Additional smoking assessment comments: Started Vaping x3 weeks Alcohol intake: current Drinks per week: 3 Substance use: never Substance use type: does not use Living arrangements: with family Additional living arrangements comments: with spouse in their own home Occupat
[2021-05-13 17:31] LABS: SARS-CoV-2 RNA PCR Negative
[2021-05-13 18:52] LABS: Glucose Point of Care 281 mg/dl (65-105)
[2021-05-13] MEDS: NOREPINEPHRINE 8 MG/D5W 250 ML 8 MG/250 ML BAG 20.63 MG IV CONT (21:06)
[2021-05-13 21:29] LABS: Glucose Point of Care 260 mg/dl (65-105)
[2021-05-14] VITALS (37 sets, daily range): BP systolic 90–130; BP diastolic 51–70; PULSE 76–135; RESP 19–26; TEMP 37.3–37.9; O2SAT 85–100
[2021-05-14] MEDS: INSULIN ASPART (*BKC) 100 UNITS/ML SUB-Q ×2 (00:20→08:08)
[2021-05-14] MEDS: MIDAZOLAM 100MG/NS 100ML(*CRX) 100 MG/100 ML BAG IV CONT ×2 (00:21→20:02)
[2021-05-14 00:29] LABS: Glucose Point of Care 241 mg/dl (65-105)
[2021-05-14 00:48] LABS: Partial Thromboplastin Time 53.9 SECONDS (22.3-36.8)
[2021-05-14] MEDS: HEPARIN SODIUM 5,000 UNITS/ML VIAL 4000 UNITS IV PUSH (01:26)
[2021-05-14] MEDS: IPRATROPIUM BR 0.02% INH SOLN 0.5 MG/2.5 ML VIAL INHALATION ×4 (01:59→21:59)
[2021-05-14] MEDS: ALBUTEROL SULFATE NEB 2.5 MG/0.5 ML INH INHALATION ×4 (01:59→22:00)
[2021-05-14] MEDS: HEPARIN SOD/D5W 100 UNITS/ML 25,000 UNITS/250 ML BAG 16 UNITS IV CONT ×2 (05:32→20:01)
[2021-05-14] MEDS: CENTRAL LINE FLUSH 10 ML IV PUSH ×4 (05:33→20:08)
[2021-05-14 05:51] LABS: Basophils Percent Auto 0.3 % (0.2-1.2); Eosinophils Absolute Auto 0.1 K/mm3 (0-0.3); Hematocrit 28.9 % (37.0-47.0); Hemoglobin 9.3 g/dL (12.0-15.0); Immature Granulocyte Absolute 0.07 K/mm3 (0.00-0.031); Immature Granulocyte Percent A 0.6 % (0-0.5); Lymphocytes Absolute Auto 1.65 K/mm3 (0.9-3.2); Lymphocytes Percent Auto 13.1 % (18.3-44.2); Mean Corpuscular HGB Conc 32.2 g/dl (32-36); Mean Corpuscular Volume 93.2 fl (80-100); Mean Platelet Volume 10.5 fl (7.4-10.4); Monocytes Absolute Auto 0.4 K/mm3 (0.1-0.6); Monocytes Percent Auto 3.4 % (2.6-8.5); Neutrophils Absolute Auto 10.2 K/mm3 (1.3-6.7); Neutrophils Percent Auto 81.6 % (45.5-73.1); Platelet Count Result 185 k/mm3 (150-375); Red Cell Distribution Width 14.9 % (11.5-14.5); White Blood Count 12.6 K/mm3 (4.5-10.0)
[2021-05-14 05:57] LABS: Lactic Acid Reflex 2.5 mmol/L (0.7-2.1)
[2021-05-14 06:08] LABS: Alveolar/Arterial O2 Gradient 286.4 mmHg; Base Excess ABG -0.1 mEq/l (+/-2.0); Carboxyhemoglobin 0.3 % THb (0-2.0); Fractional Inspired Oxygen 60 %; HCO3 ABG 21.4 mEq/l (22.0-26.0); Methemoglobin ABG 0.2 %THb (0-1.5); Oxygen Content ABG 14.8 %vol (16.0-22.0); Oxygen Saturation ABG 98.7 % (95.0-100.0); PCO2 ABG 25.3 mmHg (35.0-45.0); PO2 ABG 113.6 mmHg (80.0-100.0); PO2 FiO2 Ratio Arterial Blood 1.89 %; Reduced Hemoglobin 2.5 %THb (0-5.0); Total Hemoglobin 10.7 g/dL (12.0-18.0)
[2021-05-14 06:11] LABS: Device VENTILATOR; Modified Allen's Test Pass; Site Drawn LEFT RADIAL; pH ABG 7.545 (7.350-7.450)
[2021-05-14 06:13] LABS: Arterial Blood Gas PEEP 15 cmH2O; Arterial Blood Gas Vent Mode CMV; Arterial Blood Gas Ventilator rate 24 /MIN
[2021-05-14 06:14] LABS: Arterial Blood Gas Tidal Volume 551 ml
[2021-05-14 07:04] LABS: Alanine Aminotransferase 26 U/L (4-35); Albumin Level 2.8 g/dL (3.5-5.1); Alkaline Phosphatase 102 U/L (38-126); Anion Gap 11 mmol/L (8-16); Aspartate Amino Transferase 104 U/L (14-36); Bilirubin,Total 0.7 mg/dL (0.2-1.3); Blood Urea Nitrogen 34 mg/dL (7-17); Carbon Dioxide 23 mmol/L (22-30); Chloride 94 mmol/L (98-107); Estimated CRCL calculation 32 ml/min; Estimated Glomerular Filt Rate 22; Glucose 228 mg/dL (65-110); Magnesium 1.4 mg/dL (1.6-2.3); Phosphorus 2.3 mg/dL (2.5-4.5); Potassium 3.2 mmol/L (3.4-5.0); Sodium 128 mmol/L (137-145)
[2021-05-14 08:28] LABS: Reflex Lactic Acid Yes or No Add Lactic
[2021-05-14 08:32] LABS: Partial Thromboplastin Time 78.1 SECONDS (22.3-36.8)
[2021-05-14 09:13] LABS: Creatine Kinase > 1600 U/L (30-135)
[2021-05-14] MEDS: MAGNESIUM SULF 2 GM/WATER 50ML 2 GM/50 ML BAG IVPB (09:33)
[2021-05-14] MEDS: ATORVASTATIN 10 MG TABLET PO (09:34)
[2021-05-14] MEDS: INSULIN GLARGINE (*BKC) 100 UNITS/ML 10 UNITS SUB-Q (09:34)
[2021-05-14] MEDS: KCL 20 MEQ/SW 100 ML 100 ML 50 MEQ IVPB (09:35)
[2021-05-14] MEDS: MINERAL OIL/WHITE PETROLATUM OINTMENT 1 APPLIC EACH EYE ×2 (09:35→20:08)
[2021-05-14] MEDS: PANTOPRAZOLE SODIUM IV 40 MG VIAL IV PUSH (09:35)
--- NOTE | 2021-05-14 10:42 | PM.CNNEP ---
Assessment and Plan Assessment and plan (1) BOONE (acute kidney injury): Code(s): N17.9 - Acute kidney failure, unspecified Status: Acute Assessment and Plan: multifactorial etiology: - contrast exposure (CTA of chest at OSH) - hemodynamic instability - use of diuretics and ARB prior to admission - prerenal factors (?) - component of rhabdomyolysis - cardiac issues - infection (COVID-19 +/- pneumonia) follow-up on renal ultrasound and urine studies attempt to maintain adequate MAP follow repeat labs and UOP (2) Acute respiratory failure with hypoxia: Code(s): J96.01 - Acute respiratory failure with hypoxia Status: Acute Assessment and Plan: presumably due to a combination of pneumonia, pulmonary edema, +/- NSTEMI continue ventilator support antibiotics for presumed pneumonia weaning once more stable (3) Shock: Code(s): R57.9 - Shock, unspecified Status: Acute Assessment and Plan: continue vasopressor support follow culture data continue broad spectrum antibiotics follow trend of hemodynamics (4) NSTEMI (non-ST elevated myocardial infarction): Code(s): I21.4 - Non-ST elevation (NSTEMI) myocardial infarction Status: Acute Assessment and Plan: Cardiology recommendations noted elevated troponins related to acute illness than cardiac event (5) Diabetes: Code(s): E11.9 - Type 2 diabetes mellitus without complications Status: Acute Assessment and Plan: follow accuchecks glycemic control Discussed case with Dr. Chen. Will continue to follow. History of Present Illness Reason for Consult Consult date: 05/14/21 Reason for consult: acute renal failure Chief Complaint Chief complaint: Pneumonia/acute respiratory failure with hypoxia History of Present Illness Narrative: All of the information I have obtained from review of electronic medical record as the patient is unable to provide me with any history due to her current clinical status (intubated and sedated). The patient is a 65 year old female with a past medical history as outlined below who was initially transferred from an OSH ER for shortness of breath in association with a productive cough. She presented to the outside hospital ER with these complaints and apparently had been going on for at least 2-3 days prior to her presentation. As the symptoms have been progressively getting worse, she presented to the local hospital emergency room for further evaluation. It should be noted that she was noted to have COVID-19/COVID pneumonia in August of 2020 but recovered from that issue reasonably well and had been in her usual state until recently. Evaluation at the outside hospital emergency room demonstrated an EKG with sinus tachycardia but with no evidence of ischemic changes but with elevated troponins, hypoxia with oxygen saturations of 82% on room air which improved to 100% with application of a non-rebreather mask, a chest x-ray with a right lung infiltrate and a CT chest PE protocol negative for pulmonary embolism but with evidence of right lung consolidation with alveolar septal thickening and air bronchograms throughout the right lung in association with scattered ground-glass infiltrates in the left lung. Furthermore, she was found to have acute kidney injury with an elevated creatinine as well. Her respiratory status apparently improved with conservative therapy and she was transferred to the floor at [facility] on the day of admission. Unfortunately, over the last 24 hours, her clinical condition deteriorated. She had been relatively stable on BiPAP therapy but was clearly getting more and more fatigued and eventually consented to intubation/mechanical ventilation. She was intubated and subsequently transferred to the intensive care
[2021-05-14] MEDS: FENTANYL 2,500MCG/NS250ML(*CRX 2,500 MCG/250 ML BAG 15 MCG IV CONT (11:12)
--- NOTE | 2021-05-14 11:36 | PCDIET ---
Nutrition Follow-Up Complete: Nutrition Diagnosis: Inadequate oral intake related to oral intubation as evidenced by NPO status. Nutrition Goal: Patient to meet estimated nutritional needs. Goal in progress. MD ordered to start Glucerna 1.2 tube feedings at goal rate of 30mL/hr for today. Will recommend advancing over the next few days to closer meet estimated needs. Last recorded weight is 133.3kg which is increased from last review. Bowel Motility: Last documented BM on 05/12/21 x 1. Labs Reviewed: WBC (12.6), RBC (3.10), Hgb (9.3), Hct (28.9), Glu (228), BUN (34), Cr (2.2), K (3.2), Na (128), Alb (2.8), Elly Ca (8.96), PO4 (2.3), Mg (1.4) Meds Noted: Albuterol, Fentanyl, Lasix, Cozaar, Toprol XL, Zyloprim, Novolog, Atrovent, Zosyn, Lipitor, Nimbex, Lantus, Versed, Levophed, Protonix, KCl, Januvia, Vancomycin, Magnesium Sulfate Additional Notes: No documented skin breakdown. Recommend replacing phosphorus, as medically appropriate. Nutrition Monitoring and Evaluation: Follow up every Thursday/Thursday.
[2021-05-14 11:59] LABS: Glucose Point of Care 166 mg/dl (65-105)
[2021-05-14 13:02] LABS: Creatinine Urine 252.7 mg/dL
[2021-05-14 13:06] LABS: Potassium Urine Random 51.7 meq/L; Sodium Urine Random 48 meq/L
[2021-05-14 13:15] LABS: Eosinophil Urine None Seen % (None Seen)
[2021-05-14] MEDS: CISATRACURIUM BESYLATE 200 MG in DEXTROSE 5% 80 ML 8.52 ML IV CONT (13:31)
--- NOTE | 2021-05-14 14:40 | WPDINTPN ---
Progress Note: A&P Assessment and Plan (1) Acute respiratory failure with hypoxia: Code(s): J96.01 - Acute respiratory failure with hypoxia Status: Acute Assessment and Plan: Pain presented with acute shortness of breath likely related NSTEMI, shock, pulmonary edema, pneumonia -patient is intubated overnight, was very hypoxic, requiring PEEP of 17, 100% FiO2 and pressure support ventilation -patient was on pressure control ventilation, switched to CMV mode of ventilation, decrease PEEP to 13, FiO2 is at 60%. Will continue wean FiO2 to maintain O2 sats > 92% -05/14/2021: Chest x-ray shows mild improvement in right-sided infiltrates - Continue bronchodilators -continue Zosyn and vancomycin (initiated on 05/13/2021) -sedated with fentanyl, Versed fusions, patient also neuromuscular blockade for vent synchrony -on 05/12/2021: CTA chest at the [facility] in [facility], revealed no pulmonary embolism but right lung consolidation with alveolar septal thickening and air bronchograms prominent throughout the right lung with scattered ground-glass infiltrates in the left lung (2) Shock: Code(s): R57.9 - Shock, unspecified Status: Acute Assessment and Plan: Cardiogenic versus septic -patient with bilateral diffuse infiltrates, likely pulmonary edema was pneumonia -patient was diuresed, dropped her blood pressures and now is on Levophed, will maintain mean arterial pressures > 65 mmHg -BOONE, elevated lactic acid, lactic acid within normal limits -continue Zosyn and vancomycin - 05/13/2021 Blood cultures negative x2 -urine and sputum cultures are pending (3) NSTEMI (non-ST elevated myocardial infarction): Code(s): I21.4 - Non-ST elevation (NSTEMI) myocardial infarction Status: Acute Assessment and Plan: Patient with elevated troponin, no ST-T changes on the EKGs this morning -chest x-ray shows bilateral diffuse infiltrates likely pulmonary edema -patient started on aspirin, heparin infusion -due to patient being on vasopressors, did not start beta blockers -Appreciate cardiology evaluation recommendation -troponins increased to 3.71 this morning -05/13/2021 echocardiogram: EF 55-60%, and the dimensions are normal. Grade 2 diastolic dysfunction RV systolic function is urkj-et-[id number] reduced mild pulmonary hypertension with RVSP of 37 mmHg. Mild aortic stenosis. (4) Type 2 diabetes mellitus with hyperglycemia: Qualifiers: Diabetes mellitus detention insulin use: without intermodal customer service use Qualified Code(s): E11.65 - Type 2 diabetes mellitus with hyperglycemia Code(s): E11.65 - Type 2 diabetes mellitus with hyperglycemia Status: Acute Assessment and Plan: Patient hyperglycemic history of diabetes, -continue sliding scale insulin and Accu-Cheks -continue Lantus -hemoglobin A1c 6.5 (5) Essential hypertension: Code(s): I10 - Essential (primary) hypertension Status: Acute Assessment and Plan: History of essential hypertension, currently holding all antihypertensive (6) Cirrhosis of liver: Qualifiers: Hepatic cirrhosis type: unspecified hepatic cirrhosis Ascites presence: without ascites Qualified Code(s): K74.60 - Unspecified cirrhosis of liver Code(s): K74.60 - Unspecified cirrhosis of liver Status: Acute Assessment and Plan: History of cirrhosis, LFTs have been within normal limits (7) DVT prophylaxis: Code(s): Z29.9 - Encounter for prophylactic measures, unspecified Status: Acute Assessment and Plan: DVT prophylaxis: Heparin infusion Stress ulcer prophylaxis: Protonix (8) Suspected 2019 novel coronavirus infection: Code(s): Z20.822 - Contact with and (suspected) exposure to COVID-19 Status: Acute Assessment and Plan: SARS-CoV-2 PCR 05/13/2021 at [facility] was negative -will discontinue isolation -rapid COVID test at [facility]
[2021-05-14 15:06] LABS: Partial Thromboplastin Time 72.9 SECONDS (22.3-36.8)
--- NOTE | 2021-05-14 16:50 | PM.IMPN ---
Progress Note: A&P Assessment and Plan (1) Acute respiratory failure with hypoxia: Code(s): J96.01 - Acute respiratory failure with hypoxia Status: Acute Assessment and Plan: Pain presented with acute shortness of breath likely related NSTEMI, shock, pulmonary edema, pneumonia -patient is intubated 05/13, was very hypoxic, requiring PEEP of 17, 100% FiO2 and pressure support ventilation -patient was on pressure control ventilation, switched to CMV mode of ventilation, decrease PEEP to 13, FiO2 is at 60%. Will continue wean FiO2 to maintain O2 sats > 92% -05/14/2021: Chest x-ray shows mild improvement in right-sided infiltrates - Continue bronchodilators -continue Zosyn and vancomycin (initiated on 05/13/2021) -sedated with fentanyl, Versed fusions, patient also neuromuscular blockade for vent synchrony -on 05/12/2021: CTA chest at the [facility] in [facility], revealed no pulmonary embolism but right lung consolidation with alveolar septal thickening and air bronchograms prominent throughout the right lung with scattered ground-glass infiltrates in the left lung (2) Shock: Code(s): R57.9 - Shock, unspecified Status: Acute Assessment and Plan: Cardiogenic versus septic -patient with bilateral diffuse infiltrates, likely pulmonary edema was pneumonia -patient was diuresed, dropped her blood pressures and now is on Levophed, will maintain mean arterial pressures > 65 mmHg -BOONE, elevated lactic acid, lactic acid within normal limits -continue Zosyn and vancomycin - 05/13/2021 Blood cultures negative x2 -urine and sputum cultures are pending (3) NSTEMI (non-ST elevated myocardial infarction): Code(s): I21.4 - Non-ST elevation (NSTEMI) myocardial infarction Status: Acute Assessment and Plan: Patient with elevated troponin, no ST-T changes on the EKGs this morning -chest x-ray shows bilateral diffuse infiltrates likely pulmonary edema -patient started on aspirin, heparin infusion -due to patient being on vasopressors, did not start beta blockers -Appreciate cardiology evaluation recommendation -troponins increased to 3.71 this morning -05/13/2021 echocardiogram: EF 55-60%, and the dimensions are normal. Grade 2 diastolic dysfunction RV systolic function is [id number] reduced mild pulmonary hypertension with RVSP of 37 mmHg. Mild aortic stenosis. (4) Type 2 diabetes mellitus with hyperglycemia: Qualifiers: Diabetes mellitus mcc insulin use: without mcc use Qualified Code(s): E11.65 - Type 2 diabetes mellitus with hyperglycemia Code(s): E11.65 - Type 2 diabetes mellitus with hyperglycemia Status: Acute Assessment and Plan: Patient hyperglycemic history of diabetes, -continue sliding scale insulin and Accu-Cheks -continue Lantus -hemoglobin A1c 6.5 (5) Essential hypertension: Code(s): I10 - Essential (primary) hypertension Status: Acute Assessment and Plan: History of essential hypertension, currently holding all antihypertensive (6) Cirrhosis of liver: Qualifiers: Hepatic cirrhosis type: unspecified hepatic cirrhosis Ascites presence: without ascites Qualified Code(s): K74.60 - Unspecified cirrhosis of liver Code(s): K74.60 - Unspecified cirrhosis of liver Status: Acute Assessment and Plan: History of cirrhosis, LFTs have been within normal limits (7) DVT prophylaxis: Code(s): Z29.9 - Encounter for prophylactic measures, unspecified Status: Acute Assessment and Plan: DVT prophylaxis: Heparin infusion Stress ulcer prophylaxis: Protonix (8) Suspected 2019 novel coronavirus infection: Code(s): Z20.822 - Contact with and (suspected) exposure to COVID-19 Status: Acute Assessment and Plan: SARS-CoV-2 PCR 05/13/2021 at [facility] was negative -will discontinue isolation -rapid COVID test at [facility]
[2021-05-14 18:49] LABS: Glucose Point of Care 184 mg/dl (65-105)
[2021-05-14] MEDS: NOREPINEPHRINE 8 MG/D5W 250 ML 8 MG/250 ML BAG 5.63 MG IV CONT (20:02)
[2021-05-15] VITALS (32 sets, daily range): BP systolic 100–121; BP diastolic 53–87; PULSE 65–89; RESP 20–22; TEMP 36.2–37.3; O2SAT 92–98
[2021-05-15 00:22] LABS: Glucose Point of Care 220 mg/dl (65-105)
[2021-05-15] MEDS: INSULIN ASPART (*BKC) 100 UNITS/ML SUB-Q ×2 (00:25→05:18)
[2021-05-15] MEDS: IPRATROPIUM BR 0.02% INH SOLN 0.5 MG/2.5 ML VIAL INHALATION ×4 (02:57→19:52)
[2021-05-15] MEDS: ALBUTEROL SULFATE NEB 2.5 MG/0.5 ML INH INHALATION ×4 (02:58→19:52)
[2021-05-15] MEDS: FENTANYL 2,500MCG/NS250ML(*CRX 2,500 MCG/250 ML BAG 15 MCG IV CONT ×2 (03:20→18:58)
[2021-05-15] MEDS: CISATRACURIUM BESYLATE 200 MG in DEXTROSE 5% 80 ML 6.39 ML IV CONT (03:21)
[2021-05-15] MEDS: CENTRAL LINE FLUSH 10 ML IV PUSH ×4 (05:13→22:14)
[2021-05-15 05:15] LABS: Alveolar/Arterial O2 Gradient 98.9 mmHg; Base Excess ABG -0.4 mEq/l (+/-2.0); Carboxyhemoglobin 0.2 % THb (0-2.0); Device VENTILATOR; Fractional Inspired Oxygen 40 %; HCO3 ABG 24.4 mEq/l (22.0-26.0); Methemoglobin ABG 0.1 %THb (0-1.5); Modified Allen's Test Pass; Oxygen Content ABG 14.9 %vol (16.0-22.0); Oxygen Saturation ABG 98.8 % (95.0-100.0); Oxyhemoglobin 97.3 % THb (90.0-100.0); PCO2 ABG 40.8 mmHg (35.0-45.0); PO2 ABG 139.4 mmHg (80.0-100.0); PO2 FiO2 Ratio Arterial Blood 3.48 %; Reduced Hemoglobin 2.4 %THb (0-5.0); Site Drawn LEFT RADIAL; Total Hemoglobin 10.7 g/dL (12.0-18.0); pH ABG 7.395 (7.350-7.450)
[2021-05-15 05:16] LABS: Arterial Blood Gas PEEP 13 cmH2O; Arterial Blood Gas Tidal Volume 400 ml; Arterial Blood Gas Vent Mode CMV; Arterial Blood Gas Ventilator rate 22 /MIN
[2021-05-15 05:19] LABS: Hematocrit 26.7 % (37.0-47.0); Hemoglobin 8.6 g/dL (12.0-15.0); Mean Corpuscular HGB Conc 32.2 g/dl (32-36); Mean Corpuscular Hemoglobin 29.9 pg (26-34); Mean Corpuscular Volume 92.7 fl (80-100); Mean Platelet Volume 10.3 fl (7.4-10.4); Platelet Count Result 170 k/mm3 (150-375); Red Blood Count 2.88 M/mm3 (4.2-5.4); White Blood Count 13.4 K/mm3 (4.5-10.0)
[2021-05-15 05:32] LABS: Lactic Acid Reflex 1.6 mmol/L (0.7-2.1); Partial Thromboplastin Time 62.4 SECONDS (22.3-36.8)
[2021-05-15 05:35] LABS: Alanine Aminotransferase 37 U/L (4-35); Albumin Level 2.8 g/dL (3.5-5.1); Alkaline Phosphatase 106 U/L (38-126); Anion Gap 8 mmol/L (8-16); Aspartate Amino Transferase 140 U/L (14-36); Bilirubin,Total 0.6 mg/dL (0.2-1.3); Blood Urea Nitrogen 40 mg/dL (7-17); Calcium 7.8 mg/dL (8.4-10.2); Carbon Dioxide 23 mmol/L (22-30); Chloride 97 mmol/L (98-107); Estimated CRCL calculation 35 ml/min; Estimated Glomerular Filt Rate 24; Glucose 247 mg/dL (65-110); Magnesium 1.9 mg/dL (1.6-2.3); Phosphorus 4.3 mg/dL (2.5-4.5); Potassium 3.9 mmol/L (3.4-5.0); Sodium 128 mmol/L (137-145)
[2021-05-15 05:48] LABS: Glucose Point of Care 265 mg/dl (65-105)
[2021-05-15] MEDS: HEPARIN SODIUM 5,000 UNITS/ML VIAL 3500 UNITS IV PUSH (06:04)
[2021-05-15] MEDS: PANTOPRAZOLE SODIUM IV 40 MG VIAL IV PUSH (09:23)
[2021-05-15] MEDS: INSULIN GLARGINE (*BKC) 100 UNITS/ML 16 UNITS SUB-Q (09:23)
[2021-05-15] MEDS: MINERAL OIL/WHITE PETROLATUM OINTMENT 1 APPLIC EACH EYE ×2 (09:23→22:14)
--- NOTE | 2021-05-15 10:23 | PM.IMPN ---
Progress Note: A&P Assessment and Plan (1) Acute respiratory failure with hypoxia: Code(s): J96.01 - Acute respiratory failure with hypoxia Status: Acute Assessment and Plan: Pain presented with acute shortness of breath likely related NSTEMI, shock, pulmonary edema, pneumonia -patient is intubated 05/13, was very hypoxic, requiring PEEP of 17, 100% FiO2 and pressure support ventilation -patient was on pressure control ventilation, switched to CMV mode of ventilation, decrease PEEP to 13, FiO2 is at 60%. Will continue wean FiO2 to maintain O2 sats > 92% -05/14/2021: Chest x-ray shows mild improvement in right-sided infiltrates - Continue bronchodilators -continue Zosyn and vancomycin (initiated on 05/13/2021) -sedated with fentanyl, Versed fusions, patient also neuromuscular blockade for vent synchrony -on 05/12/2021: CTA chest at the [facility] in [facility], revealed no pulmonary embolism but right lung consolidation with alveolar septal thickening and air bronchograms prominent throughout the right lung with scattered ground-glass infiltrates in the left lung 05/15/21 intubated, pulm/cc managing vent (2) Shock: Code(s): R57.9 - Shock, unspecified Status: Acute Assessment and Plan: Cardiogenic versus septic -patient with bilateral diffuse infiltrates, likely pulmonary edema was pneumonia -patient was diuresed, dropped her blood pressures and now is on Levophed, will maintain mean arterial pressures > 65 mmHg -BOONE, elevated lactic acid, lactic acid within normal limits -continue Zosyn and vancomycin - 05/13/2021 Blood cultures negative x2 -urine and sputum cultures are pending 05/15/21 Continues to require pressor support (3) NSTEMI (non-ST elevated myocardial infarction): Code(s): I21.4 - Non-ST elevation (NSTEMI) myocardial infarction Status: Acute Assessment and Plan: Patient with elevated troponin, no ST-T changes on the EKGs this morning -chest x-ray shows bilateral diffuse infiltrates likely pulmonary edema -patient started on aspirin, heparin infusion -due to patient being on vasopressors, did not start beta blockers -Appreciate cardiology evaluation recommendation -troponins increased to 3.71 this morning -05/13/2021 echocardiogram: EF 55-60%, and the dimensions are normal. Grade 2 diastolic dysfunction RV systolic function is demh-cx-pfkrvzfxrd reduced mild pulmonary hypertension with RVSP of 37 mmHg. Mild aortic stenosis. 05/15/21 Remains on heparin drip (4) Type 2 diabetes mellitus with hyperglycemia: Qualifiers: Diabetes mellitus group home insulin use: without potato picker use Qualified Code(s): E11.65 - Type 2 diabetes mellitus with hyperglycemia Code(s): E11.65 - Type 2 diabetes mellitus with hyperglycemia Status: Acute Assessment and Plan: Patient hyperglycemic history of diabetes, -continue sliding scale insulin and Accu-Cheks -continue Lantus -hemoglobin A1c 6.5 05/15/21 05/15/21 BG at goal (5) Essential hypertension: Code(s): I10 - Essential (primary) hypertension Status: Acute Assessment and Plan: History of essential hypertension, currently holding all antihypertensive (6) Cirrhosis of liver: Qualifiers: Ascites presence: without ascites Hepatic cirrhosis type: unspecified hepatic cirrhosis Qualified Code(s): K74.60 - Unspecified cirrhosis of liver Code(s): K74.60 - Unspecified cirrhosis of liver Status: Acute Assessment and Plan: History of cirrhosis, LFTs have been within normal limits (7) DVT prophylaxis: Code(s): Z29.9 - Encounter for prophylactic measures, unspecified Status: Acute Assessment and Plan: DVT prophylaxis: Heparin infusion Stress ulcer prophylaxis: Protonix (8) Suspected 2019 novel coronavirus infection: Code(s): Z20.822 - Contact with and (suspected) exposure to COVID-19 Status: Acute
--- NOTE | 2021-05-15 11:06 | WPDINTPN ---
Progress Note: A&P Assessment and Plan (1) Acute respiratory failure with hypoxia: Code(s): J96.01 - Acute respiratory failure with hypoxia Status: Acute Assessment and Plan: Pain presented with acute shortness of breath likely related NSTEMI, shock, pulmonary edema, pneumonia -patient is intubated overnight, was very hypoxic, requiring PEEP of 17, 100% FiO2 and pressure support ventilation -patient remains on CMV mode of ventilation, peep of 13, FiO2 40%. Will decrease PEEP to 10. Maintain O2 sats > 92% -05/15/2021: Mild improvement in right-sided infiltrate since 05/14/2021; persistent prominent left lower lobe atelectasis and/or consolidation - Continue bronchodilators -continue Zosyn and vancomycin (initiated on 05/13/2021) -sedated with fentanyl, Versed fusions, patient also neuromuscular blockade for vent synchrony, start weaning Nimbex to off -on 05/12/2021: CTA chest at the [facility] in [facility], revealed no pulmonary embolism but right lung consolidation with alveolar septal thickening and air bronchograms prominent throughout the right lung with scattered ground-glass infiltrates in the left lung (2) Shock: Code(s): R57.9 - Shock, unspecified Status: Acute Assessment and Plan: Cardiogenic versus septic -patient with bilateral diffuse infiltrates, likely pulmonary edema was pneumonia -patient was diuresed, dropped her blood pressures and now is on Levophed, will maintain mean arterial pressures > 65 mmHg -Lactic acid has normalized, urine output per improving -continue Zosyn and vancomycin - 05/13/2021 Blood cultures negative x2 -05/13/2021: Urine cultures pending -05/13/2021: Sputum cultures negative (3) NSTEMI (non-ST elevated myocardial infarction): Code(s): I21.4 - Non-ST elevation (NSTEMI) myocardial infarction Status: Acute Assessment and Plan: Patient with elevated troponin, no ST-T changes on the EKGs this morning -chest x-ray shows bilateral diffuse infiltrates likely pulmonary edema -patient started on aspirin, heparin infusion -due to patient being on vasopressors, did not start beta blockers -Appreciate cardiology evaluation recommendation -troponins increased to 3.71 this morning -05/13/2021 echocardiogram: EF 55-60%, and the dimensions are normal. Grade 2 diastolic dysfunction RV systolic function is dbwa-ed-ojjtpwdzej reduced mild pulmonary hypertension with RVSP of 37 mmHg. Mild aortic stenosis. (4) Type 2 diabetes mellitus with hyperglycemia: Qualifiers: Diabetes mellitus penitentiary insulin use: without penitentiary use Qualified Code(s): E11.65 - Type 2 diabetes mellitus with hyperglycemia Code(s): E11.65 - Type 2 diabetes mellitus with hyperglycemia Status: Acute Assessment and Plan: Patient hyperglycemic history of diabetes, -continue sliding scale insulin and Accu-Cheks -continue Lantus -hemoglobin A1c 6.5 (5) Essential hypertension: Code(s): I10 - Essential (primary) hypertension Status: Acute Assessment and Plan: History of essential hypertension, currently holding all antihypertensive (6) Cirrhosis of liver: Qualifiers: Hepatic cirrhosis type: unspecified hepatic cirrhosis Ascites presence: without ascites Qualified Code(s): K74.60 - Unspecified cirrhosis of liver Code(s): K74.60 - Unspecified cirrhosis of liver Status: Acute Assessment and Plan: History of cirrhosis, LFTs have been within normal limits (7) DVT prophylaxis: Code(s): Z29.9 - Encounter for prophylactic measures, unspecified Status: Acute Assessment and Plan: DVT prophylaxis: Heparin infusion Stress ulcer prophylaxis: Protonix (8) Suspected 2019 novel coronavirus infection: Code(s): Z20.822 - Contact with and (suspected) exposure to COVID-19 Status: Acute Assessment and Plan: SARS-CoV-2 PCR 05/13/2021 at [facility] was neg
[2021-05-15] MEDS: HEPARIN SOD/D5W 100 UNITS/ML 25,000 UNITS/250 ML BAG 18 UNITS IV CONT (11:09)
--- NOTE | 2021-05-15 11:17 | ECG_ITS ---
Measurements Intervals [place] Rate: 69 P: 60 LA: 204 QRS: 55 QRSD: 102 T: 36 QT: 504 QTc: 541 Interpretive Statements SINUS RHYTHM PROLONGED QT INTERVAL ABNORMAL ECG Electronically Signed On 05-15-2021 13:30:37 CDT by Rolan Esquivel D.O.
--- NOTE | 2021-05-15 11:52 | PM.PNCARD ---
Progress Note: A&P Assessment and Plan (1) Type 2 myocardial infarction: Code(s): I21.A1 - Myocardial infarction type 2 Status: Acute Assessment and Plan: Supportive care. Heparin infusion to be discontinued today. Recheck troponin for trend. Repeat 12 lead EKG. 2D echocardiogram at presentation EF 55-60% without regional wall motion abnormalities although limited assessment moderate RV dysfunction mild aortic stenosis RVSP 37 mm Hg. Significant decline in H&H since admission. Follow H&H closely. Monitor for bleeding and no signs at this time. No indication for invasive angiography. Continue supportive care. Patient remains critically ill. (2) Acute respiratory failure with hypoxia: Code(s): J96.01 - Acute respiratory failure with hypoxia Status: Acute Assessment and Plan: Remains on IV antibiotics for possible pneumonia. Remains intubated on mechanical ventilatory support. Management per Critical Care. Off diuretics due to hypotension shock, now off pressors. COVID negative. Cultures negative today. (3) Type 2 diabetes mellitus with hyperglycemia: Qualifiers: Diabetes mellitus ocean transportation intermediary insulin use: without ocean transportation intermediary use Qualified Code(s): E11.65 - Type 2 diabetes mellitus with hyperglycemia Code(s): E11.65 - Type 2 diabetes mellitus with hyperglycemia Status: Acute Assessment and Plan: Per primary service (4) BOONE (acute kidney injury): Code(s): N17.9 - Acute kidney failure, unspecified Status: Acute Assessment and Plan: Acute renal insufficiency related to shock and critical illness. Continue to monitor on a routine basis. Subjective Date/time seen: Date of service: 05/15/21 11:52 Follow-up for acute respiratory failure, elevated troponin COVID negative. Off pressors, heparin drip to be discontinued today. Remains intubated and sedated. IV antibiotics continue. Plans to start weaning Nimbex infusion. Patient sedated and unable to provide any history. Review of Systems Review of Systems: All systems reviewed & are unremarkable except as noted in HPI and below ROS unobtainable: Yes unobtainable due to endotracheal tube Exam Const: Other: Morbidly obese white female intubated sedated on mechanical ventilator support comfortable HENMT: Mouth: Yes moist mucous membranes Eyes: Sclera: sclerae normal Neck: Neck: no JVD Thyroid: thyroid normal Other: Cannot assess given her body habitus Resp: Effort & Inspection: normal respiratory effort Auscultation: clear to auscultation bilaterally Cardio: Rate: regular rate Rhythm: regular rhythm Other: PMI cannot be palpated no obvious cardiac murmur or gallop is audible, difficult exam given her obesity GI: Auscultation: normal bowel sounds Neuro: Cranial nerves: Yes Equal, round and reactive pupils present Extrem: General: normal to inspection Objective Data Vital Signs Vital Signs: Vital Signs - 24 hr 05/14/21 12:00 05/14/21 12:06 05/14/21 12:13 Temperature Pulse Rate 106 H 115 H 84 Respiratory Rate 21 H Blood Pressure 113/67 113/67 109/56 L Pulse Oximetry 90 05/14/21 13:31 05/14/21 14:00 05/14/21 14:21 Temperature 37.3 C Pulse Rate 83 80 80 Respiratory Rate 22 H 22 H Blood Pressure 109/56 L 97/56 L Pulse Oximetry 97 100 05/14/21 14:25 05/14/21 16:00 05/14/21 16:45 Temperature 37.3 C Pulse Rate 135 H 85 85 Respiratory Rate 21 H 22 H Blood Pressure 113/67 120/67 Pulse Oximetry 85 L 97 97 05/14/21 18:00 05/14/21 19:12 05/14/21 20:00 Temperature 37.7 C H Pulse Rate 85 80 81 Respiratory Rate 22 H 22 H 22 H Blood Pressure 118/60 125/61 Pulse Oximetry 96 95 05/14/21 20:02 05/14/21 20:13 05/14/21 22:00 Temperature Pulse Rate 80 83 79 Respiratory Rate 22 H 22 H Blood Pressure 124/61 124/61 130/63 Pulse Oximetry 95 05/14/21 22:08 05/14/21 22:18 05/14/21 22:35 Temperature Pulse Rate 79 82 78 Respir
[2021-05-15] MEDS: METOCLOPRAMIDE HCL INJ 10 MG/2 ML VIAL 5 MG IV PUSH ×2 (12:04→18:05)
--- NOTE | 2021-05-15 12:14 | PCDIET ---
ICU Rounding Note: Tube feedings on hold for abdominal ultrasound. MD adding Regsera for reported 300mL residuals when tube feedings were infusing. Last recorded weight is 136.6kg which is increased from last review. +I/O. Bowel Motility: Last documented BM on 05/12/21 x 1. Labs Reviewed: WBC (13.4), RBC (2.88), Hgb (8.6), Hct (26.7), BUN (40), Cr (2.1), Na (128), Alb (2.8), Elly Ca (8.46) Meds Noted: Albuterol, Fentanyl, Toprol XL, Versed, Zyloprim, Lasix, Atrovent, Levophed, Januvia, Abilify, Novolog, Cozaar, Vancomycin, Lipitor, Nimbex, Lantus, Protonix, Zosyn, Reglan Additional Notes: No skin breakdown, per RN. Following daily in ICU rounds. Assessing/reassessing every Thursday/Thursday.
[2021-05-15 12:15] LABS: Glucose Point of Care 190 mg/dl (65-105)
[2021-05-15 14:22] LABS: HAV RESULT Negative (Negative); Hepatitis B Core IgM Result Negative (Negative); Hepatitis C Virus Antibody Negative (Negative)
[2021-05-15 14:46] LABS: Hepatitis B Surface Antigen Negative (Negative)
--- NOTE | 2021-05-15 16:06 | PM.PNNEP ---
Progress Note: A&P Assessment and Plan (1) BOONE (acute kidney injury): Code(s): N17.9 - Acute kidney failure, unspecified Status: Acute Assessment and Plan: multifactorial etiology: - contrast exposure (CTA of chest at OSH) - hemodynamic instability - use of diuretics and ARB prior to admission - prerenal factors - component of rhabdomyolysis - cardiac issues - infection (pneumonia) renal ultrasound without obstruction urine electrolytes suggest prerenal azotemia CPK mildly elevated attempt to maintain adequate MAP follow repeat labs and UOP (2) Acute respiratory failure with hypoxia: Code(s): J96.01 - Acute respiratory failure with hypoxia Status: Acute Assessment and Plan: presumably due to a combination of pneumonia, pulmonary edema, +/- NSTEMI continue ventilator support antibiotics for presumed pneumonia weaning once more stable (3) Shock: Code(s): R57.9 - Shock, unspecified Status: Acute Assessment and Plan: continue vasopressor support follow culture data continue broad spectrum antibiotics follow trend of hemodynamics (4) NSTEMI (non-ST elevated myocardial infarction): Code(s): I21.4 - Non-ST elevation (NSTEMI) myocardial infarction Status: Acute Assessment and Plan: Cardiology recommendations noted elevated troponins related to acute illness than cardiac event (5) Diabetes: Code(s): E11.9 - Type 2 diabetes mellitus without complications Status: Acute Assessment and Plan: follow accuchecks glycemic control Will continue to follow. Subjective Date/time seen: 05/15/21 16:06 Remains intubated along with sedation/paralytics; respiratory status appears stable in not better; increased urine output in the last 24 hours; no other acute issues/events overnight or earlier this AM; no other significant changes noted; hemodynamics improving with ongoing weaning of pressors. Exam Narrative: General: WD/WN female intubated/sedated/paralyzed Heart: normal S1 and S2; no rub Lungs: coarse breath sounds bilaterally Abdomen: soft, nontender, nondistended, positive bowel sounds Extremities: no cyanosis or clubbing; trace - 1+ edema Skin: warm and dry Objective Data Vital Signs Vital Signs: Vital Signs Temp Pulse Resp BP Pulse Ox 05/15/21 16:03 86 22 H 05/15/21 16:00 36.5 C 84 22 H 116/75 93 05/15/21 14:44 65 22 H 05/15/21 14:37 69 22 H 97 05/15/21 14:00 67 22 H 100/62 98 05/15/21 12:00 36.5 C 70 20 113/66 97 05/15/21 11:00 86 22 H 113/87 05/15/21 10:00 67 22 H 104/57 L 95 05/15/21 09:58 67 22 H 05/15/21 09:47 68 22 H 95 05/15/21 08:00 36.2 C L 67 22 H 113/64 93 05/15/21 06:00 66 22 H 110/55 L 95 05/15/21 05:17 68 97 05/15/21 04:00 36.8 C 68 22 H 112/53 L 97 05/15/21 03:35 97 05/15/21 03:21 69 22 H 111/56 L 05/15/21 03:20 69 22 H 05/15/21 03:00 68 97 05/15/21 02:59 68 22 H 05/15/21 02:00 71 22 H 121/55 L 97 05/15/21 00:11 78 121/54 L 05/15/21 00:10 76 22 H 05/15/21 00:00 37.3 C 81 22 H 121/54 L 97 05/14/21 23:33 79 22 H 97 05/14/21 23:10 97 05/14/21 22:35 78 97 05/14/21 22:18 82 22 H 05/14/21 22:08 79 22 H 05/14/21 22:00 79 22 H 130/63 95 05/14/21 20:13 83 124/61 05/14/21 20:02 80 22 H 124/61 05/14/21 20:00 37.7 C H 81 22 H 125/61 95 05/14/21 19:12 80 22 H Intake/Output Intake/Output: Intake & Output 05/12/21 05/13/21 05/14/21 05/15/21 23:59 23:59 23:59 23:59 Intake Total 740 1000 1926 2186 Output Total 650 2350 920 1850 Balance 90 -1350 1006 336 Meds/Results Medications: Active Medications Generic Name Dose Route Start Last Admin Trade Name Freq PRN Reason Stop
[2021-05-15] MEDS: MIDAZOLAM 100MG/NS 100ML(*CRX) 100 MG/100 ML BAG IV CONT (16:26)
[2021-05-15 18:15] LABS: Glucose Point of Care 150 mg/dl (65-105)
[2021-05-16] VITALS (35 sets, daily range): BP systolic 95–139; BP diastolic 54–69; PULSE 66–85; RESP 18–22; TEMP 36.8–37.7; O2SAT 93–100
[2021-05-16] MEDS: METOCLOPRAMIDE HCL INJ 10 MG/2 ML VIAL 5 MG IV PUSH ×5 (01:00→23:25)
[2021-05-16 01:11] LABS: Glucose Point of Care 165 mg/dl (65-105)
[2021-05-16 02:49] LABS: Lactic Acid Reflex 1.3 mmol/L (0.7-2.1)
[2021-05-16 02:50] LABS: Alanine Aminotransferase 44 U/L (4-35); Albumin Level 2.9 g/dL (3.5-5.1); Alkaline Phosphatase 138 U/L (38-126); Anion Gap 8 mmol/L (8-16); Aspartate Amino Transferase 134 U/L (14-36); Bilirubin,Total 0.7 mg/dL (0.2-1.3); Blood Urea Nitrogen 40 mg/dL (7-17); Calcium 8.2 mg/dL (8.4-10.2); Carbon Dioxide 24 mmol/L (22-30); Chloride 99 mmol/L (98-107); Estimated CRCL calculation 38 ml/min; Estimated Glomerular Filt Rate 27; Glucose 183 mg/dL (65-110); Magnesium 2.1 mg/dL (1.6-2.3); Potassium 4.2 mmol/L (3.4-5.0); Sodium 131 mmol/L (137-145)
[2021-05-16 02:54] LABS: Hematocrit 26.8 % (37.0-47.0); Hemoglobin 8.5 g/dL (12.0-15.0); Mean Corpuscular HGB Conc 31.7 g/dl (32-36); Mean Corpuscular Volume 94.7 fl (80-100); Mean Platelet Volume 10.3 fl (7.4-10.4); Platelet Count Result 150 k/mm3 (150-375); Red Blood Count 2.83 M/mm3 (4.2-5.4); Red Cell Distribution Width 15.1 % (11.5-14.5); White Blood Count 9.6 K/mm3 (4.5-10.0)
[2021-05-16 03:31] LABS: Vancomycin Trough 22.8 ug/mL (10.0-20.0)
[2021-05-16] MEDS: ALBUTEROL SULFATE NEB 2.5 MG/0.5 ML INH INHALATION ×4 (03:50→21:25)
[2021-05-16] MEDS: IPRATROPIUM BR 0.02% INH SOLN 0.5 MG/2.5 ML VIAL INHALATION ×4 (03:50→21:25)
[2021-05-16 05:12] LABS: Base Excess ABG 1.5 mEq/l (+/-2.0); Carboxyhemoglobin 0.3 % THb (0-2.0); Fractional Inspired Oxygen 50 %; HCO3 ABG 26.1 mEq/l (22.0-26.0); Methemoglobin ABG 0.3 %THb (0-1.5); Oxygen Content ABG 15.4 %vol (16.0-22.0); Oxygen Saturation ABG 97.7 % (95.0-100.0); Oxyhemoglobin 96.1 % THb (90.0-100.0); PCO2 ABG 41.5 mmHg (35.0-45.0); PO2 ABG 101.8 mmHg (80.0-100.0); PO2 FiO2 Ratio Arterial Blood 2.04 %; Reduced Hemoglobin 3.3 %THb (0-5.0); Total Hemoglobin 11.3 g/dL (12.0-18.0); pH ABG 7.417 (7.350-7.450)
[2021-05-16 05:13] LABS: Device VENTILATOR; Modified Allen's Test Pass; Site Drawn RIGHT RADIAL
[2021-05-16 05:14] LABS: Arterial Blood Gas PEEP 10 cmH2O; Arterial Blood Gas Tidal Volume 400 ml; Arterial Blood Gas Vent Mode CMV; Arterial Blood Gas Ventilator rate 22 /MIN
[2021-05-16] MEDS: CENTRAL LINE FLUSH 10 ML IV PUSH ×4 (05:24→20:07)
[2021-05-16] MEDS: INSULIN GLARGINE (*BKC) 100 UNITS/ML 16 UNITS SUB-Q (09:17)
[2021-05-16] MEDS: ATORVASTATIN 10 MG TABLET PO (09:17)
[2021-05-16] MEDS: MINERAL OIL/WHITE PETROLATUM OINTMENT 1 APPLIC EACH EYE ×2 (09:18→20:07)
[2021-05-16] MEDS: PANTOPRAZOLE SODIUM IV 40 MG VIAL IV PUSH (09:18)
[2021-05-16 11:49] LABS: Glucose Point of Care 164 mg/dl (65-105)
--- NOTE | 2021-05-16 12:29 | PCDIET ---
Nutrition Follow-Up Complete: Nutrition Diagnosis: Inadequate oral intake related to oral intubation as evidenced by NPO status. Nutrition Goal: Patient to meet estimated nutritional needs. Goal in progress. Patient tolerating Glucerna 1.2 at 30mL/hr with 30mL water flush every 4 hours. Recommend advancing as tolerated toward goal of 65mL/hr for 1716kcal and 85g protein over the next 24 hours. Last recorded weight is 135.7 kg which is decreased from last review. Bowel Motility: Last documented BM on 05/12/21 x 1. Labs Reviewed: RBC (2.83), Hgb (8.5), Hct (26.8), Glu (183), BUN (40), Cr (1.9), Na (131), Alb (2.9), Elly Ca (9.08) Meds Noted: Albuterol, Lipitor, Fentanyl, Lasix, Versed, Protonix, Zosyn, Novolog, Lantus, Atrovent, Januvia, Cozaar, Reglan, Toprol XL, Vancomycin Additional Notes: No documented skin breakdown. Will continue to monitor with same goal. Nutrition Monitoring and Evaluation: Follow up every Thursday/Thursday.
--- NOTE | 2021-05-16 13:43 | WPDINTPN ---
Progress Note: A&P Assessment and Plan (1) Acute respiratory failure with hypoxia: Code(s): J96.01 - Acute respiratory failure with hypoxia Status: Acute Assessment and Plan: Pain presented with acute shortness of breath likely related NSTEMI, shock, pulmonary edema, pneumonia -patient is intubated overnight, was very hypoxic, requiring PEEP of 17, 100% FiO2 and pressure support ventilation -patient remains on CMV mode of ventilation, peep of 13, FiO2 40%. Will decrease PEEP to 10. Maintain O2 sats > 92% -05/15/2021: Mild improvement in right-sided infiltrate since 05/14/2021; persistent prominent left lower lobe atelectasis and/or consolidation - Continue bronchodilators -continue Zosyn and vancomycin (initiated on 05/13/2021) -sedated with fentanyl, Versed fusions, patient also neuromuscular blockade for vent synchrony, start weaning Nimbex to off -on 05/12/2021: CTA chest at the [facility] in [facility], revealed no pulmonary embolism but right lung consolidation with alveolar septal thickening and air bronchograms prominent throughout the right lung with scattered ground-glass infiltrates in the left lung (2) Shock: Code(s): R57.9 - Shock, unspecified Status: Acute Assessment and Plan: Off Levophed Cardiogenic versus septic -patient with bilateral diffuse infiltrates, likely pulmonary edema was pneumonia - 05/13/2021 Blood cultures negative x2 -05/13/2021: Urine cultures negative -05/13/2021: Sputum cultures negative -Discontinue vancomycin -continue Zosyn (initiated 05/13/2021) (3) NSTEMI (non-ST elevated myocardial infarction): Code(s): I21.4 - Non-ST elevation (NSTEMI) myocardial infarction Status: Acute Assessment and Plan: Patient with elevated troponin, no ST-T changes on the EKGs this morning -chest x-ray shows bilateral diffuse infiltrates likely pulmonary edema -patient started on aspirin, heparin infusion -due to patient being on vasopressors, did not start beta blockers -Appreciate cardiology evaluation recommendation -troponins increased to 3.71 this morning -05/13/2021 echocardiogram: EF 55-60%, and the dimensions are normal. Grade 2 diastolic dysfunction RV systolic function is [id number] reduced mild pulmonary hypertension with RVSP of 37 mmHg. Mild aortic stenosis. (4) Type 2 diabetes mellitus with hyperglycemia: Qualifiers: Diabetes mellitus terminal press operator insulin use: without terminal press operator use Qualified Code(s): E11.65 - Type 2 diabetes mellitus with hyperglycemia Code(s): E11.65 - Type 2 diabetes mellitus with hyperglycemia Status: Acute Assessment and Plan: Patient hyperglycemic history of diabetes, -continue sliding scale insulin and Accu-Cheks -continue Lantus -hemoglobin A1c 6.5 (5) Essential hypertension: Code(s): I10 - Essential (primary) hypertension Status: Acute Assessment and Plan: History of essential hypertension, currently holding all antihypertensive (6) Cirrhosis of liver: Qualifiers: Hepatic cirrhosis type: unspecified hepatic cirrhosis Ascites presence: without ascites Qualified Code(s): K74.60 - Unspecified cirrhosis of liver Code(s): K74.60 - Unspecified cirrhosis of liver Status: Acute Assessment and Plan: History of cirrhosis, LFTs have been within normal limits (7) DVT prophylaxis: Code(s): Z29.9 - Encounter for prophylactic measures, unspecified Status: Acute Assessment and Plan: DVT prophylaxis: Heparin infusion Stress ulcer prophylaxis: Protonix (8) Suspected 2019 novel coronavirus infection: Code(s): Z20.822 - Contact with and (suspected) exposure to COVID-19 Status: Acute Assessment and Plan: SARS-CoV-2 PCR 05/13/2021 at [facility] was negative -will discontinue isolation -rapid COVID test at [facility] -according the patient's , patient and he
[2021-05-16] MEDS: HEPARIN SODIUM 5,000 UNITS/ML VIAL 5000 UNITS SUB-Q ×2 (14:34→20:07)
--- NOTE | 2021-05-16 14:51 | PM.PNNEP ---
Progress Note: A&P Assessment and Plan (1) BOONE (acute kidney injury): Code(s): N17.9 - Acute kidney failure, unspecified Status: Acute Assessment and Plan: slowly improving multifactorial etiology: - contrast exposure (CTA of chest at OSH) - hemodynamic instability - use of diuretics and ARB prior to admission - prerenal factors - component of rhabdomyolysis - cardiac issues - infection (pneumonia) renal ultrasound without obstruction urine electrolytes suggest prerenal azotemia CPK mildly elevated follow repeat labs and UOP (2) Acute respiratory failure with hypoxia: Code(s): J96.01 - Acute respiratory failure with hypoxia Status: Acute Assessment and Plan: presumably due to a combination of pneumonia, pulmonary edema, +/- NSTEMI continue ventilator support antibiotics for presumed pneumonia weaning once more stable (3) Shock: Code(s): R57.9 - Shock, unspecified Status: Acute Assessment and Plan: resolved -- off pressors follow culture data continue broad spectrum antibiotics follow trend of hemodynamics (4) NSTEMI (non-ST elevated myocardial infarction): Code(s): I21.4 - Non-ST elevation (NSTEMI) myocardial infarction Status: Acute Assessment and Plan: Cardiology recommendations noted elevated troponins related to acute illness than cardiac event (5) Diabetes: Code(s): E11.9 - Type 2 diabetes mellitus without complications Status: Acute Assessment and Plan: follow accuchecks glycemic control Will continue to follow. Subjective Date/time seen: 05/16/21 14:51 Remains on ventilator support but off pressors and hemodynamically stable; no new issues or problems to report; no issues/events overnight or earlier this AM; urine output stable if not improving. Exam Narrative: General: WD/WN female intubated/sedated/paralyzed Heart: normal S1 and S2; no rub Lungs: coarse breath sounds bilaterally Abdomen: soft, nontender, nondistended, positive bowel sounds Extremities: no cyanosis or clubbing; trace edema Skin: warm and intact Objective Data Vital Signs Vital Signs: Vital Signs Temp Pulse Resp BP Pulse Ox 05/16/21 14:00 80 22 H 120/61 100 05/16/21 13:30 80 22 H 100 05/16/21 13:29 74 22 H 05/16/21 13:27 72 100 05/16/21 12:00 37.3 C 79 22 H 118/63 99 05/16/21 10:57 67 100 05/16/21 10:00 68 22 H 101/58 L 98 05/16/21 08:47 70 22 H 05/16/21 08:41 75 98 05/16/21 08:00 37.0 C 68 22 H 103/58 L 99 05/16/21 06:36 75 98 05/16/21 06:24 73 22 H 05/16/21 06:23 74 22 H 05/16/21 06:00 73 18 97/54 L 93 05/16/21 04:00 36.8 C 71 22 H 112/65 95 05/16/21 03:58 71 22 H 05/16/21 03:55 72 22 H 97 05/16/21 03:51 74 22 H 94 05/16/21 02:30 72 22 H 05/16/21 02:29 71 22 H 05/16/21 02:00 67 22 H 95/55 L 97 05/16/21 01:08 72 22 H 05/16/21 01:06 76 22 H 05/16/21 00:00 70 22 H 98/58 L 97 05/15/21 22:38 74 93 05/15/21 22:00 75 20 109/61 97 05/15/21 20:02 76 22 H 05/15/21 20:00 36.6 C 77 22 H 119/70 94 05/15/21 19:53 78 22 H 93 05/15/21 18:58 71 22 H 05/15/21 18:00 74 22 H 106/55 L 95 05/15/21 16:56 89 92 Intake/Output Intake/Output: Intake & Output 05/13/21 05/14/21 05/15/21 05/16/21 23:59 23:59 23:59 23:59 Intake Total 1000 1926 2186 1137 Output Total 2350 920 1850 1325 Balance -1350 1006 336 -188 Meds/Results Medications: Active Medications Generic Name Dose Route Start Last Admin Trade Name Freq PRN Reason Stop Dose Admin Albuterol 2.5 mg 05/13/21 14:00 05/16/21 13:25 Albuterol Sulfate Neb 2.5 Mg/0.5 Ml Inh INHALATION 2.5 mg Q6HRT JUAN Administration Allopurinol 100 mg 05/13/21
[2021-05-16 16:45] LABS: Glucose Point of Care 182 mg/dl (65-105)
[2021-05-17] VITALS (29 sets, daily range): BP systolic 111–182; BP diastolic 57–97; PULSE 77–103; RESP 14–24; TEMP 36.4–37.3; O2SAT 96–100
[2021-05-17 00:17] LABS: Glucose Point of Care 164 mg/dl (65-105)
[2021-05-17] MEDS: IPRATROPIUM BR 0.02% INH SOLN 0.5 MG/2.5 ML VIAL INHALATION ×4 (02:27→21:03)
[2021-05-17] MEDS: ALBUTEROL SULFATE NEB 2.5 MG/0.5 ML INH INHALATION ×4 (02:27→21:03)
--- NOTE | 2021-05-17 03:18 | PC.NURSE ---
Cut ring off of right ring finger r/t severe edema. Previous attempts made by this RN to remove it by other means without success.
[2021-05-17 04:51] LABS: Alveolar/Arterial O2 Gradient 141.1 mmHg; Base Excess ABG 2.5 mEq/l (+/-2.0); Carboxyhemoglobin 0.3 % THb (0-2.0); Fractional Inspired Oxygen 40 %; HCO3 ABG 27.7 mEq/l (22.0-26.0); Methemoglobin ABG 0.3 %THb (0-1.5); Oxygen Content ABG 16.7 %vol (16.0-22.0); Oxyhemoglobin 95.5 % THb (90.0-100.0); PCO2 ABG 45.3 mmHg (35.0-45.0); Reduced Hemoglobin 3.9 %THb (0-5.0); Total Hemoglobin 12.4 g/dL (12.0-18.0); pH ABG 7.405 (7.350-7.450)
[2021-05-17 04:54] LABS: Device VENTILATOR; Modified Allen's Test Pass; Site Drawn LEFT RADIAL
[2021-05-17 05:03] LABS: Arterial Blood Gas PEEP 10 cmH2O; Arterial Blood Gas Tidal Volume 400 ml; Arterial Blood Gas Vent Mode CMV; Arterial Blood Gas Ventilator rate 22 /MIN
[2021-05-17] MEDS: METOCLOPRAMIDE HCL INJ 10 MG/2 ML VIAL 5 MG IV PUSH (05:30)
[2021-05-17] MEDS: HEPARIN SODIUM 5,000 UNITS/ML VIAL 5000 UNITS SUB-Q ×3 (05:30→20:10)
[2021-05-17] MEDS: CENTRAL LINE FLUSH 10 ML IV PUSH ×4 (05:32→20:10)
[2021-05-17] MEDS: FENTANYL 2,500MCG/NS250ML(*CRX 2,500 MCG/250 ML BAG IV CONT (05:32)
[2021-05-17] MEDS: MIDAZOLAM 100MG/NS 100ML(*CRX) 100 MG/100 ML BAG IV CONT (05:39)
[2021-05-17 06:07] LABS: Glucose Point of Care 166 mg/dl (65-105)
[2021-05-17 06:14] LABS: Basophils Percent Auto 0.2 % (0.2-1.2); Eosinophils Absolute Auto 0.3 K/mm3 (0-0.3); Eosinophils Percent Auto 2.9 % (0-4.4); Hematocrit 27.9 % (37.0-47.0); Hemoglobin 8.8 g/dL (12.0-15.0); Immature Granulocyte Absolute 0.06 K/mm3 (0.00-0.031); Immature Granulocyte Percent A 0.6 % (0-0.5); Lymphocytes Absolute Auto 0.63 K/mm3 (0.9-3.2); Lymphocytes Percent Auto 6.3 % (18.3-44.2); Mean Corpuscular HGB Conc 31.5 g/dl (32-36); Mean Corpuscular Hemoglobin 30.2 pg (26-34); Mean Corpuscular Volume 95.9 fl (80-100); Monocytes Absolute Auto 0.7 K/mm3 (0.1-0.6); Monocytes Percent Auto 6.8 % (2.6-8.5); Neutrophils Absolute Auto 8.3 K/mm3 (1.3-6.7); Neutrophils Percent Auto 83.2 % (45.5-73.1); Platelet Count Result 159 k/mm3 (150-375); Red Blood Count 2.91 M/mm3 (4.2-5.4)
[2021-05-17 06:37] LABS: Lactic Acid Reflex 0.8 mmol/L (0.7-2.1)
[2021-05-17 08:04] LABS: Alanine Aminotransferase 45 U/L (4-35); Albumin Level 3.1 g/dL (3.5-5.1); Alkaline Phosphatase 182 U/L (38-126); Anion Gap 9 mmol/L (8-16); Aspartate Amino Transferase 96 U/L (14-36); Bilirubin,Total 0.4 mg/dL (0.2-1.3); Blood Urea Nitrogen 38 mg/dL (7-17); Calcium 8.7 mg/dL (8.4-10.2); Carbon Dioxide 24 mmol/L (22-30); Chloride 98 mmol/L (98-107); Estimated CRCL calculation 42 ml/min; Estimated Glomerular Filt Rate 30; Glucose 171 mg/dL (65-110); Magnesium 2.3 mg/dL (1.6-2.3); Phosphorus 4.3 mg/dL (2.5-4.5); Potassium 4.4 mmol/L (3.4-5.0); Sodium 131 mmol/L (137-145)
[2021-05-17] MEDS: ATORVASTATIN 10 MG TABLET PO (09:16)
[2021-05-17] MEDS: FUROSEMIDE INJ 40 MG/4 ML VIAL IV PUSH (09:16)
[2021-05-17] MEDS: PANTOPRAZOLE SODIUM IV 40 MG VIAL IV PUSH (09:16)
[2021-05-17] MEDS: MINERAL OIL/WHITE PETROLATUM OINTMENT 1 APPLIC EACH EYE ×2 (09:16→20:10)
[2021-05-17] MEDS: INSULIN GLARGINE (*BKC) 100 UNITS/ML 16 UNITS SUB-Q (09:16)
--- NOTE | 2021-05-17 11:16 | PCDIET ---
Nutrition Follow-Up Complete: Nutrition Diagnosis: Inadequate oral intake related to oral intubation as evidenced by NPO status. Nutrition Goal: Patient to meet estimated nutritional needs. Goal met. Patient tolerating Glucerna 1.2 at 65mL/hr goal rate with 30mL water flush every 4 hours. Last recorded weight is 135.4 kg which is stable with last review. Bowel Motility: RN reports diarrhea BM overnight. MD ordered to hold Reglan. Labs Reviewed: RBC (2.91), Hgb (8.8), Hct (27.9), Glu (171), BUN (38), Cr (1.7), Na (131), Alb (3.1) Meds Noted: Albuterol, Lipitor, Fentanyl, Novolog, Lantus, Atrovent, Lasix, Cozaar, Toprol XL, Protonix, Januvia Additional Notes: No documented skin breakdown. Will continue to monitor with same goal. Nutrition Monitoring and Evaluation: Follow up every Thursday/Thursday.
--- NOTE | 2021-05-17 11:25 | PC.NURSE ---
PATIENT'S SON KATHY CALLED. UPDATES GIVEN. ALL QUESTIONS ANSWERED.
[2021-05-17 12:35] LABS: Glucose Point of Care 183 mg/dl (65-105)
--- NOTE | 2021-05-17 13:16 | WPDINTPN ---
Progress Note: A&P Assessment and Plan (1) Acute respiratory failure with hypoxia: Code(s): J96.01 - Acute respiratory failure with hypoxia Status: Acute Assessment and Plan: Pain presented with acute shortness of breath likely related NSTEMI, shock, pulmonary edema, pneumonia -on 05/12/2021: CTA chest at the [facility] in [facility], revealed no pulmonary embolism but right lung consolidation with alveolar septal thickening and air bronchograms prominent throughout the right lung with scattered ground-glass infiltrates in the left lung Chest x-ray reviewed -decrease PEEP to 8. Sedation holiday - Continue bronchodilators -continue Zosyn and off of vancomycin (initiated on 05/13/2021) COVID PCR negative Lasix 40 mg IV x1 (2) Shock: Code(s): R57.9 - Shock, unspecified Status: Acute Assessment and Plan: Off Levophed Cardiogenic versus septic -patient with bilateral diffuse infiltrates, likely pulmonary edema vs pneumonia - 05/13/2021 Blood cultures negative x2 -05/13/2021: Urine cultures negative -05/13/2021: Sputum cultures negative -off vancomycin now -continue Zosyn (initiated 05/13/2021) (3) NSTEMI (non-ST elevated myocardial infarction): Code(s): I21.4 - Non-ST elevation (NSTEMI) myocardial infarction Status: Acute Assessment and Plan: Patient with elevated troponin, no ST-T changes on the EKGs this morning -chest x-ray shows bilateral diffuse infiltrates likely pulmonary edema -patient started on aspirin, heparin infusion -due to patient being on vasopressors, did not start beta blockers -Appreciate cardiology evaluation recommendation -05/13/2021 echocardiogram: EF 55-60%, and the dimensions are normal. Grade 2 diastolic dysfunction RV systolic function is [id number] reduced mild pulmonary hypertension with RVSP of 37 mmHg. Mild aortic stenosis. -off heparin infusion now (4) Type 2 diabetes mellitus with hyperglycemia: Qualifiers: Diabetes mellitus long term care pharmacist insulin use: without long term care pharmacist use Qualified Code(s): E11.65 - Type 2 diabetes mellitus with hyperglycemia Code(s): E11.65 - Type 2 diabetes mellitus with hyperglycemia Status: Acute Assessment and Plan: Patient hyperglycemic history of diabetes, -continue sliding scale insulin and Accu-Cheks -continue Lantus -hemoglobin A1c 6.5 (5) Essential hypertension: Code(s): I10 - Essential (primary) hypertension Status: Acute Assessment and Plan: History of essential hypertension, currently holding all antihypertensive (6) Cirrhosis of liver: Qualifiers: Hepatic cirrhosis type: unspecified hepatic cirrhosis Ascites presence: without ascites Qualified Code(s): K74.60 - Unspecified cirrhosis of liver Code(s): K74.60 - Unspecified cirrhosis of liver Status: Acute Assessment and Plan: History of cirrhosis, LFTs have been within normal limits (7) DVT prophylaxis: Code(s): Z29.9 - Encounter for prophylactic measures, unspecified Status: Acute Assessment and Plan: DVT prophylaxis: Heparin SC Stress ulcer prophylaxis: Protonix (8) Suspected 2019 novel coronavirus infection: Code(s): Z20.822 - Contact with and (suspected) exposure to COVID-19 Status: Acute Assessment and Plan: SARS-CoV-2 PCR 05/13/2021 at [facility] was negative -will discontinue isolation -rapid COVID test at [facility] -according the patient's , patient and her had tested positive for COVID in August 2020,they both have been vaccinated with Moderna vaccine in December 2020 - (9) BOONE (acute kidney injury): Code(s): N17.9 - Acute kidney failure, unspecified Status: Acute Assessment and Plan: Patient with acute kidney injury creatinine on admission was 0.9, on admission. Creatinine is 2.20 this morning -likely related to hypotension, hypoxia, s
[2021-05-17] MEDS: ASPIRIN 325 MG TABLET FEED TUBE (14:14)
--- NOTE | 2021-05-17 14:36 | PM.PNNEP ---
Progress Note: A&P Assessment and Plan (1) BOONE (acute kidney injury): Code(s): N17.9 - Acute kidney failure, unspecified Status: Acute Assessment and Plan: slowly improving multifactorial etiology: - contrast exposure (CTA of chest at OSH) - hemodynamic instability - use of diuretics and ARB prior to admission - prerenal factors - component of rhabdomyolysis - cardiac issues - infection (pneumonia) renal ultrasound without obstruction urine electrolytes suggest prerenal azotemia CPK mildly elevated follow repeat labs and UOP (2) Acute respiratory failure with hypoxia: Code(s): J96.01 - Acute respiratory failure with hypoxia Status: Acute Assessment and Plan: presumably due to a combination of pneumonia, pulmonary edema, +/- NSTEMI continue ventilator support antibiotics for presumed pneumonia weaning as tolerated PRN diuresis (3) Shock: Code(s): R57.9 - Shock, unspecified Status: Acute Assessment and Plan: resolved -- off pressors follow culture data continue antibiotics follow trend of hemodynamics (4) NSTEMI (non-ST elevated myocardial infarction): Code(s): I21.4 - Non-ST elevation (NSTEMI) myocardial infarction Status: Acute Assessment and Plan: Cardiology recommendations noted elevated troponins related to acute illness than cardiac event (5) Diabetes: Code(s): E11.9 - Type 2 diabetes mellitus without complications Status: Acute Assessment and Plan: follow accuchecks glycemic control Will continue to follow. Subjective Date/time seen: 05/17/21 14:36 No real significant change noted -- remains on ventilator support but with stable hemodynamics and good urine output with improving renal function; no new issues/events overnight or earlier this AM. Exam Narrative: General: WD/WN female intubated/sedated Heart: normal S1 and S2; no rub Lungs: coarse breath sounds bilaterally Abdomen: soft, nontender, nondistended, positive bowel sounds Extremities: no cyanosis or clubbing; trace edema Skin: no rash Objective Data Vital Signs Vital Signs: Vital Signs Temp Pulse Resp BP Pulse Ox 05/17/21 14:00 90 22 H 119/78 100 05/17/21 12:00 37.1 C 99 14 160/78 H 97 05/17/21 11:43 85 99 05/17/21 10:00 81 22 H 145/74 H 98 05/17/21 09:21 85 22 H 05/17/21 09:07 89 21 H 05/17/21 08:59 78 99 05/17/21 08:00 37.1 C 79 22 H 141/71 H 100 05/17/21 06:00 82 20 142/78 H 100 05/17/21 05:32 80 22 H 05/17/21 04:21 90 100 05/17/21 04:00 36.4 C 78 22 H 132/70 100 05/17/21 02:33 95 97 05/17/21 02:27 95 22 H 05/17/21 02:01 99 24 H 182/88 H 96 05/17/21 02:00 99 23 H 05/17/21 00:00 36.9 C 80 22 H 111/57 L 100 05/16/21 23:55 83 100 05/16/21 23:23 80 22 H 05/16/21 22:00 81 22 H 120/62 100 05/16/21 21:33 70 22 H 05/16/21 21:30 78 100 05/16/21 20:00 83 22 H 139/69 100 05/16/21 19:58 37.7 C H 05/16/21 19:49 74 22 H 05/16/21 18:00 71 22 H 117/64 99 05/16/21 16:48 77 100 05/16/21 16:00 37.1 C 71 22 H 114/62 100 Intake/Output Intake/Output: Intake & Output 05/14/21 05/15/21 05/16/21 05/17/21 23:59 23:59 23:59 23:59 Intake Total 1926 2186 1337 1271 Output Total 920 1850 1325 1175 Balance 1006 336 12 96 Meds/Results Medications: Active Medications Generic Name Dose Route Start Last Admin Trade Name Freq PRN Reason Stop Dose Admin Albuterol 2.5 mg 05/13/21 14:00 05/17/21 15:06 Albuterol Sulfate Neb 2.5 Mg/0.5 Ml Inh INHALATION 2.5 mg Q6HRT JUAN Administration Aspirin 325 mg 05/17/21 13:25 05/17/21 14:14 Aspirin 325 Mg Tablet FEED TUBE 325 mg DAILY@0800 [facility] Administration Atorvastatin Calcium 10 mg
[2021-05-17 18:31] LABS: Glucose Point of Care 199 mg/dl (65-105)
[2021-05-18] VITALS (42 sets, daily range): BP systolic 124–197; BP diastolic 68–102; PULSE 82–120; RESP 18–32; TEMP 37.1–37.5; O2SAT 93–100
[2021-05-18 00:40] LABS: Glucose Point of Care 216 mg/dl (65-105)
[2021-05-18] MEDS: INSULIN ASPART (*BKC) 100 UNITS/ML SUB-Q ×3 (00:40→17:11)
[2021-05-18] MEDS: ALBUTEROL SULFATE NEB 2.5 MG/0.5 ML INH INHALATION ×4 (02:58→19:36)
[2021-05-18] MEDS: IPRATROPIUM BR 0.02% INH SOLN 0.5 MG/2.5 ML VIAL INHALATION ×4 (02:58→19:36)
[2021-05-18 05:32] LABS: Alveolar/Arterial O2 Gradient 142.1 mmHg; Base Excess ABG 5.8 mEq/l (+/-2.0); Carboxyhemoglobin 0.3 % THb (0-2.0); Fractional Inspired Oxygen 40 %; HCO3 ABG 31.2 mEq/l (22.0-26.0); Methemoglobin ABG 0.1 %THb (0-1.5); Oxygen Content ABG 16.3 %vol (16.0-22.0); Oxygen Saturation ABG 96.7 % (95.0-100.0); Oxyhemoglobin 95.4 % THb (90.0-100.0); PCO2 ABG 48.8 mmHg (35.0-45.0); PO2 FiO2 Ratio Arterial Blood 2.17 %; Reduced Hemoglobin 4.2 %THb (0-5.0); Total Hemoglobin 12.1 g/dL (12.0-18.0); pH ABG 7.423 (7.350-7.450)
[2021-05-18 05:35] LABS: Device VENTILATOR; Modified Allen's Test Pass; Site Drawn LEFT RADIAL
[2021-05-18 05:36] LABS: Arterial Blood Gas Ventilator rate 22 /MIN
[2021-05-18 05:37] LABS: Arterial Blood Gas PEEP 8 cmH2O; Arterial Blood Gas Tidal Volume 400 ml; Arterial Blood Gas Vent Mode CMV
[2021-05-18] MEDS: PROPOFOL IV EMULSION 100 ML 4.06 MG IV CONT (05:51)
[2021-05-18] MEDS: CENTRAL LINE FLUSH 10 ML IV PUSH ×4 (05:54→20:23)
[2021-05-18] MEDS: HEPARIN SODIUM 5,000 UNITS/ML VIAL 5000 UNITS SUB-Q ×3 (05:54→20:23)
[2021-05-18 06:11] LABS: Hematocrit 29.2 % (37.0-47.0); Hemoglobin 9.1 g/dL (12.0-15.0); Mean Corpuscular HGB Conc 31.2 g/dl (32-36); Mean Corpuscular Hemoglobin 29.9 pg (26-34); Mean Corpuscular Volume 96.1 fl (80-100); Mean Platelet Volume 10.1 fl (7.4-10.4); Platelet Count Result 193 k/mm3 (150-375); Red Blood Count 3.04 M/mm3 (4.2-5.4); Red Cell Distribution Width 14.7 % (11.5-14.5); White Blood Count 10.6 K/mm3 (4.5-10.0)
[2021-05-18 06:23] LABS: Glucose Point of Care 186 mg/dl (65-105)
[2021-05-18 06:26] LABS: Lactic Acid Reflex 0.8 mmol/L (0.7-2.1)
[2021-05-18 06:36] LABS: Alanine Aminotransferase 45 U/L (4-35); Albumin Level 3.3 g/dL (3.5-5.1); Alkaline Phosphatase 198 U/L (38-126); Anion Gap 9 mmol/L (8-16); Aspartate Amino Transferase 71 U/L (14-36); Bilirubin,Total 0.4 mg/dL (0.2-1.3); Blood Urea Nitrogen 40 mg/dL (7-17); Calcium 9.3 mg/dL (8.4-10.2); Carbon Dioxide 29 mmol/L (22-30); Chloride 95 mmol/L (98-107); Estimated CRCL calculation 42 ml/min; Estimated Glomerular Filt Rate 30; Glucose 179 mg/dL (65-110); Potassium 4.4 mmol/L (3.4-5.0); Sodium 133 mmol/L (137-145); Triglycerides 256 mg/dL (<150)
[2021-05-18] MEDS: FUROSEMIDE INJ 40 MG/4 ML VIAL IV PUSH (08:56)
[2021-05-18] MEDS: PANTOPRAZOLE SODIUM IV 40 MG VIAL IV PUSH (08:57)
[2021-05-18] MEDS: ATORVASTATIN 10 MG TABLET PO (08:58)
[2021-05-18] MEDS: MINERAL OIL/WHITE PETROLATUM OINTMENT 1 APPLIC EACH EYE ×2 (08:58→20:23)
[2021-05-18] MEDS: ASPIRIN 325 MG TABLET FEED TUBE (08:58)
[2021-05-18] MEDS: INSULIN GLARGINE (*BKC) 100 UNITS/ML 16 UNITS SUB-Q (09:08)
[2021-05-18 11:16] LABS: NT Pro B Type Natriuretic Pept 1790 pg/mL (5-100)
--- NOTE | 2021-05-18 11:38 | WPDINTPN ---
Progress Note: A&P Assessment and Plan (1) Acute respiratory failure with hypoxia: Code(s): J96.01 - Acute respiratory failure with hypoxia Status: Acute Assessment and Plan: Pain presented with acute shortness of breath likely related NSTEMI, shock, pulmonary edema, pneumonia -on 05/12/2021: CTA chest at the [facility] in [facility], revealed no pulmonary embolism but right lung consolidation with alveolar septal thickening and air bronchograms prominent throughout the right lung with scattered ground-glass infiltrates in the left lung Chest x-ray reviewed and shows improvement Will decrease PEEP to 5. Sedation holiday -will continue diuresis with another dose of Lasix today - Continue bronchodilators -continue Zosyn and off of vancomycin (initiated on 05/13/2021) COVID PCR negative (2) Shock: Code(s): R57.9 - Shock, unspecified Status: Acute Assessment and Plan: Off Levophed Cardiogenic versus septic -patient with bilateral diffuse infiltrates, likely pulmonary edema vs pneumonia - 05/13/2021 Blood cultures negative x2 -05/13/2021: Urine cultures negative -05/13/2021: Sputum cultures negative -off vancomycin now -continue Zosyn (initiated 05/13/2021) (3) NSTEMI (non-ST elevated myocardial infarction): Code(s): I21.4 - Non-ST elevation (NSTEMI) myocardial infarction Status: Acute Assessment and Plan: Patient with elevated troponin, no ST-T changes on the EKGs this morning -chest x-ray shows bilateral diffuse infiltrates likely pulmonary edema -patient started on aspirin, heparin infusion -due to patient being on vasopressors, did not start beta blockers -Appreciate cardiology evaluation recommendation -05/13/2021 echocardiogram: EF 55-60%, and the dimensions are normal. Grade 2 diastolic dysfunction RV systolic function is [id number] reduced mild pulmonary hypertension with RVSP of 37 mmHg. Mild aortic stenosis. -off heparin infusion now (4) Type 2 diabetes mellitus with hyperglycemia: Qualifiers: Diabetes mellitus skilled nursing insulin use: without buttermaker continuous churn use Qualified Code(s): E11.65 - Type 2 diabetes mellitus with hyperglycemia Code(s): E11.65 - Type 2 diabetes mellitus with hyperglycemia Status: Acute Assessment and Plan: Patient hyperglycemic history of diabetes, -continue sliding scale insulin and Accu-Cheks -continue Lantus -hemoglobin A1c 6.5 (5) Essential hypertension: Code(s): I10 - Essential (primary) hypertension Status: Acute Assessment and Plan: History of essential hypertension, currently holding all antihypertensive Will resume beta-morena (6) Cirrhosis of liver: Qualifiers: Hepatic cirrhosis type: unspecified hepatic cirrhosis Ascites presence: without ascites Qualified Code(s): K74.60 - Unspecified cirrhosis of liver Code(s): K74.60 - Unspecified cirrhosis of liver Status: Acute Assessment and Plan: History of cirrhosis, LFTs have been within normal limits (7) DVT prophylaxis: Code(s): Z29.9 - Encounter for prophylactic measures, unspecified Status: Acute Assessment and Plan: DVT prophylaxis: Heparin SC Stress ulcer prophylaxis: Protonix (8) Suspected 2019 novel coronavirus infection: Code(s): Z20.822 - Contact with and (suspected) exposure to COVID-19 Status: Acute Assessment and Plan: SARS-CoV-2 PCR 05/13/2021 at [facility] was negative -will discontinue isolation -rapid COVID test at [facility] -according the patient's , patient and her had tested positive for COVID in August 2020,they both have been vaccinated with Moderna vaccine in December 2020 - (9) BOONE (acute kidney injury): Code(s): N17.9 - Acute kidney failure, unspecified Status: Acute Assessment and Plan: Patient with acute kidney injury creatinine on admission was 0.
--- NOTE | 2021-05-18 11:44 | PM.PNNEP ---
Progress Note: A&P Assessment and Plan (1) BOONE (acute kidney injury): Code(s): N17.9 - Acute kidney failure, unspecified Status: Acute Assessment and Plan: slowly improving multifactorial etiology: - contrast exposure (CTA of chest at OSH) - hemodynamic instability - use of diuretics and ARB prior to admission - prerenal factors - component of rhabdomyolysis - cardiac issues - infection (pneumonia) renal ultrasound without obstruction urine electrolytes suggest prerenal azotemia CPK mildly elevated follow repeat labs and UOP (2) Acute respiratory failure with hypoxia: Code(s): J96.01 - Acute respiratory failure with hypoxia Status: Acute Assessment and Plan: presumably due to a combination of pneumonia, pulmonary edema, +/- NSTEMI continue ventilator support antibiotics for presumed pneumonia weaning as tolerated PRN diuresis (3) Shock: Code(s): R57.9 - Shock, unspecified Status: Acute Assessment and Plan: resolved -- off pressors follow culture data continue antibiotics follow trend of hemodynamics (4) NSTEMI (non-ST elevated myocardial infarction): Code(s): I21.4 - Non-ST elevation (NSTEMI) myocardial infarction Status: Acute Assessment and Plan: Cardiology recommendations noted elevated troponins related to acute illness than cardiac event (5) Diabetes: Code(s): E11.9 - Type 2 diabetes mellitus without complications Status: Acute Assessment and Plan: follow accuchecks glycemic control Will continue to follow. Subjective Date/time seen: 05/18/21 11:44 Remain on ventilator support at this time; excellent urine output in response to IV diuretics; no other acute issues/events overnight or earlier today; remains hemodynamically stable off pressor therapy; CXR appears to show improvement with interventions to date. Exam Narrative: General: WD/WN female intubated/sedated Heart: normal S1 and S2; no rub Lungs: coarse breath sounds bilaterally Abdomen: soft, nontender, nondistended, positive bowel sounds Extremities: no cyanosis or clubbing; trace edema Skin: no nodules Objective Data Vital Signs Vital Signs: Vital Signs Temp Pulse Resp BP Pulse Ox 05/18/21 11:00 93 22 H 176/87 H 97 05/18/21 10:00 90 22 H 152/74 H 96 05/18/21 09:01 92 22 H 173/83 H 98 05/18/21 08:57 99 22 H 05/18/21 08:45 94 22 H 97 05/18/21 08:00 37.3 C 89 22 H 165/85 H 100 05/18/21 07:30 92 22 H 161/80 H 98 05/18/21 07:00 82 22 H 124/68 99 05/18/21 06:00 104 H 21 H 167/82 H 98 05/18/21 05:51 100 30 H 05/18/21 04:00 37.5 C 97 22 H 152/83 H 97 05/18/21 03:04 95 26 H 05/18/21 02:45 95 26 H 05/18/21 02:43 95 97 05/18/21 02:00 88 22 H 154/76 H 98 05/18/21 00:00 37.5 C 92 22 H 145/84 H 99 05/17/21 23:44 86 99 05/17/21 22:00 102 H 24 H 166/97 H 100 05/17/21 21:03 103 H 22 H 05/17/21 20:18 102 H 22 H 05/17/21 20:04 102 H 100 05/17/21 20:00 36.9 C 86 22 H 147/75 H 99 05/17/21 18:00 92 22 H 122/70 100 05/17/21 17:01 87 98 05/17/21 16:00 37.3 C 89 22 H 152/79 H 99 05/17/21 15:19 98 15 05/17/21 15:08 97 23 H 05/17/21 15:06 85 100 05/17/21 14:00 90 22 H 119/78 100 05/17/21 12:00 37.1 C 99 14 160/78 H 97 Intake/Output Intake/Output: Intake & Output 05/15/21 05/16/21 05/17/21 05/18/21 23:59 23:59 23:59 23:59 Intake Total 2186 1337 2282 1196 Output Total 1748 6881 3979 1320 Balance 336 21 -2576 -901 Meds/Results Medications: Active Medications Generic Name Dose Route Start Last Admin Trade Name Freq PRN Reason Stop Dose Admin Albuterol 2.5 mg 05/13/21 14:00 05/18/21 08:37 Albuterol Sulfate Neb 2.5 Mg/0.5 Ml Inh I
[2021-05-18 12:28] LABS: Glucose Point of Care 209 mg/dl (65-105)
[2021-05-18 15:43] LABS: Chloride Rand Ur <20 mmol/L (32-290); Creatinine Random Urine 222 mg/dL (20-275)
[2021-05-18] MEDS: hydrALAZINE HCL 20 MG/ML VIAL IV PUSH (15:53)
[2021-05-18 17:11] LABS: Glucose Point of Care 230 mg/dl (65-105)
[2021-05-18] MEDS: PROPOFOL IV EMULSION 100 ML 28.43 MG IV CONT ×2 (20:21→23:53)
[2021-05-19] VITALS (37 sets, daily range): BP systolic 100–166; BP diastolic 62–86; PULSE 86–102; RESP 19–29; TEMP 36.2–37.2; O2SAT 90–98
[2021-05-19] MEDS: INSULIN ASPART (*BKC) 100 UNITS/ML SUB-Q ×2 (01:06→12:57)
[2021-05-19 01:11] LABS: Glucose Point of Care 208 mg/dl (65-105)
[2021-05-19] MEDS: IPRATROPIUM BR 0.02% INH SOLN 0.5 MG/2.5 ML VIAL INHALATION ×4 (03:10→20:35)
[2021-05-19] MEDS: ALBUTEROL SULFATE NEB 2.5 MG/0.5 ML INH INHALATION ×4 (03:10→20:35)
[2021-05-19] MEDS: PROPOFOL IV EMULSION 100 ML 28.43 MG IV CONT (03:25)
[2021-05-19 04:21] LABS: Alveolar/Arterial O2 Gradient 81.7 mmHg; Base Excess ABG 9.2 mEq/l (+/-2.0); Carboxyhemoglobin 0.1 % THb (0-2.0); Fractional Inspired Oxygen 30 %; Methemoglobin ABG 0.1 %THb (0-1.5); Oxygen Content ABG 15.3 %vol (16.0-22.0); Oxygen Saturation ABG 95.9 % (95.0-100.0); Oxyhemoglobin 94.4 % THb (90.0-100.0); PCO2 ABG 47.7 mmHg (35.0-45.0); PO2 ABG 76.2 mmHg (80.0-100.0); PO2 FiO2 Ratio Arterial Blood 2.54 %; Reduced Hemoglobin 5.4 %THb (0-5.0); Total Hemoglobin 11.5 g/dL (12.0-18.0); pH ABG 7.471 (7.350-7.450)
[2021-05-19 04:22] LABS: Arterial Blood Gas PEEP 5 cmH2O; Arterial Blood Gas Tidal Volume 400 ml; Arterial Blood Gas Vent Mode CMV; Arterial Blood Gas Ventilator rate 22 /MIN; Device VENTILATOR; Modified Allen's Test Pass; Site Drawn LEFT RADIAL
[2021-05-19] MEDS: HEPARIN SODIUM 5,000 UNITS/ML VIAL 5000 UNITS SUB-Q ×3 (06:03→20:28)
[2021-05-19] MEDS: CENTRAL LINE FLUSH 10 ML IV PUSH ×4 (06:04→20:26)
[2021-05-19 06:11] LABS: Glucose Point of Care 199 mg/dl (65-105)
[2021-05-19] MEDS: PROPOFOL IV EMULSION 100 ML 32.5 MG IV CONT (06:27)
[2021-05-19 06:31] LABS: Estimated CRCL calculation 44 ml/min; Estimated Glomerular Filt Rate 32
[2021-05-19 08:09] LABS: Alanine Aminotransferase 36 U/L (4-35); Albumin Level 3.5 g/dL (3.5-5.1); Alkaline Phosphatase 186 U/L (38-126); Anion Gap 7 mmol/L (8-16); Aspartate Amino Transferase 45 U/L (14-36); Bilirubin,Total 0.4 mg/dL (0.2-1.3); Blood Urea Nitrogen 40 mg/dL (7-17); Calcium 9.4 mg/dL (8.4-10.2); Carbon Dioxide 30 mmol/L (22-30); Chloride 96 mmol/L (98-107); Estimated CRCL calculation 44 ml/min; Estimated Glomerular Filt Rate 32; Glucose 192 mg/dL (65-110); Potassium 3.8 mmol/L (3.4-5.0); Sodium 133 mmol/L (137-145)
[2021-05-19 08:28] LABS: Hematocrit 28.8 % (37.0-47.0); Hemoglobin 9.4 g/dL (12.0-15.0); Mean Corpuscular HGB Conc 32.6 g/dl (32-36); Mean Corpuscular Hemoglobin 30.2 pg (26-34); Mean Corpuscular Volume 92.6 fl (80-100); Mean Platelet Volume 9.7 fl (7.4-10.4); Platelet Count Result 231 k/mm3 (150-375); Red Blood Count 3.11 M/mm3 (4.2-5.4); Red Cell Distribution Width 14.4 % (11.5-14.5); White Blood Count 13.6 K/mm3 (4.5-10.0)
[2021-05-19] MEDS: INSULIN GLARGINE (*BKC) 100 UNITS/ML 25 UNITS SUB-Q (09:22)
[2021-05-19] MEDS: FUROSEMIDE INJ 40 MG/4 ML VIAL IV PUSH (09:22)
[2021-05-19] MEDS: MINERAL OIL/WHITE PETROLATUM OINTMENT 1 APPLIC EACH EYE ×2 (09:22→20:22)
[2021-05-19] MEDS: ATORVASTATIN 10 MG TABLET PO (09:22)
[2021-05-19] MEDS: PANTOPRAZOLE SODIUM IV 40 MG VIAL IV PUSH (09:22)
[2021-05-19] MEDS: ASPIRIN 325 MG TABLET FEED TUBE (09:23)
--- NOTE | 2021-05-19 10:09 | PM.PNNEP ---
Progress Note: A&P Assessment and Plan (1) BOONE (acute kidney injury): Code(s): N17.9 - Acute kidney failure, unspecified Status: Acute Assessment and Plan: slowly improving multifactorial etiology: - contrast exposure (CTA of chest at OSH) - hemodynamic instability - use of diuretics and ARB prior to admission - prerenal factors - component of rhabdomyolysis - cardiac issues - infection (pneumonia) renal ultrasound without obstruction urine electrolytes suggest prerenal azotemia CPK mildly elevated follow repeat labs and UOP (2) Acute respiratory failure with hypoxia: Code(s): J96.01 - Acute respiratory failure with hypoxia Status: Acute Assessment and Plan: presumably due to a combination of pneumonia, pulmonary edema, +/- NSTEMI continue ventilator support antibiotics for presumed pneumonia weaning as tolerated PRN diuresis (3) Shock: Code(s): R57.9 - Shock, unspecified Status: Acute Assessment and Plan: resolved -- off pressors follow culture data continue antibiotics follow trend of hemodynamics (4) NSTEMI (non-ST elevated myocardial infarction): Code(s): I21.4 - Non-ST elevation (NSTEMI) myocardial infarction Status: Acute Assessment and Plan: Cardiology recommendations noted elevated troponins related to acute illness than cardiac event (5) Diabetes: Code(s): E11.9 - Type 2 diabetes mellitus without complications Status: Acute Assessment and Plan: follow accuchecks glycemic control Will continue to follow. Subjective Date/time seen: 05/19/21 10:09 No significant change -- remains on mechanical ventilation but hemodynamically stable and making good urine output in response to IV diuretics PRN; no apparent distress; no issues; no events overnight or earlier this AM. Exam Narrative: General: WD/WN female intubated/sedated Heart: normal S1 and S2; no rub Lungs: coarse breath sounds bilaterally Abdomen: soft, nontender, nondistended, positive bowel sounds Extremities: no cyanosis or clubbing; trace edema Skin:warm and dry Objective Data Vital Signs Vital Signs: Vital Signs Temp Pulse Resp BP Pulse Ox 05/19/21 09:47 99 92 05/19/21 09:20 93 22 H 91 05/19/21 09:00 96 28 H 160/80 H 94 05/19/21 08:00 37.1 C 94 24 H 138/77 96 05/19/21 06:31 90 22 H 100/62 94 05/19/21 06:00 101 H 05/19/21 04:32 96 95 05/19/21 04:00 37.2 C 95 21 H 116/86 95 05/19/21 03:16 93 22 H 05/19/21 03:11 91 23 H 05/19/21 02:30 93 25 H 129/71 96 05/19/21 02:00 94 94 05/19/21 01:00 99 22 H 147/82 H 94 05/19/21 00:00 37.2 C 99 29 H 166/79 H 95 05/18/21 23:05 100 95 05/18/21 22:00 102 H 32 H 169/80 H 96 05/18/21 21:45 100 23 H 95 05/18/21 21:31 95 28 H 95 05/18/21 20:00 37.3 C 99 18 152/80 H 94 05/18/21 19:44 96 97 05/18/21 19:43 92 22 H 05/18/21 19:36 96 22 H 05/18/21 18:14 107 H 24 H 05/18/21 18:00 100 24 H 161/79 H 96 05/18/21 17:35 107 H 93 05/18/21 17:02 115 H 24 H 05/18/21 16:46 120 H 05/18/21 16:04 113 H 30 H 05/18/21 16:00 37.4 C 109 H 29 H 197/102 H 95 05/18/21 15:52 102 H 23 H 05/18/21 15:00 100 20 176/86 H 97 05/18/21 14:35 99 22 H 05/18/21 14:25 94 22 H 94 05/18/21 14:00 96 18 169/92 H 96 05/18/21 13:30 94 18 167/86 H 97 05/18/21 13:00 90 22 H 144/82 H 96 05/18/21 12:30 87 22 H 147/71 H 95 05/18/21 12:00 95 22 H 164/88 H 95 05/18/21 11:56 37.1 C 05/18/21 11:30 98 96 05/18/21 11:00 93 22 H 176/87 H 97 Intake/Output Intake/Output: Intake & Output 05/16/21 05/17/21 05/18/21 05/19/21 23:59 23:59 23:59 23:59 Intake Total 5433 4152 8333 138
--- NOTE | 2021-05-19 10:38 | WPDINTPN ---
Progress Note: A&P Assessment and Plan (1) Acute respiratory failure with hypoxia: Code(s): J96.01 - Acute respiratory failure with hypoxia Status: Acute Assessment and Plan: Pain presented with acute shortness of breath likely related NSTEMI, shock, pulmonary edema, pneumonia -on 05/12/2021: CTA chest at the [facility] in [facility], revealed no pulmonary embolism but right lung consolidation with alveolar septal thickening and air bronchograms prominent throughout the right lung with scattered ground-glass infiltrates in the left lung Chest x-ray reviewed and shows improvement PEEP is down to 5 and FiO2 is down at 30% - Sedation holiday was done and patient although was following commands became tachypneic and was coughing leading to desaturation. patient was placed back on full ventilation support and propofol was resumed -will continue diuresis with another dose of Lasix today - Continue bronchodilators -continue Zosyn and off of vancomycin (initiated on 05/13/2021) COVID PCR negative (2) Shock: Code(s): R57.9 - Shock, unspecified Status: Acute Assessment and Plan: Off Levophed Cardiogenic versus septic -patient with bilateral diffuse infiltrates, likely pulmonary edema vs pneumonia - 05/13/2021 Blood cultures negative x2 -05/13/2021: Urine cultures negative -05/13/2021: Sputum cultures negative -off vancomycin now -continue Zosyn (initiated 05/13/2021) (3) NSTEMI (non-ST elevated myocardial infarction): Code(s): I21.4 - Non-ST elevation (NSTEMI) myocardial infarction Status: Acute Assessment and Plan: Patient with elevated troponin, no ST-T changes on the EKGs this morning -chest x-ray shows bilateral diffuse infiltrates likely pulmonary edema -patient started on aspirin, heparin infusion -due to patient being on vasopressors, did not start beta blockers -Appreciate cardiology evaluation recommendation -05/13/2021 echocardiogram: EF 55-60%, and the dimensions are normal. Grade 2 diastolic dysfunction RV systolic function is [id number] reduced mild pulmonary hypertension with RVSP of 37 mmHg. Mild aortic stenosis. -off heparin infusion now (4) Type 2 diabetes mellitus with hyperglycemia: Qualifiers: Diabetes mellitus senior care insulin use: without lubrication equipment servicer use Qualified Code(s): E11.65 - Type 2 diabetes mellitus with hyperglycemia Code(s): E11.65 - Type 2 diabetes mellitus with hyperglycemia Status: Acute Assessment and Plan: Patient hyperglycemic history of diabetes, -continue sliding scale insulin and Accu-Cheks -continue Lantus but will increase dose -hemoglobin A1c 6.5 (5) Essential hypertension: Code(s): I10 - Essential (primary) hypertension Status: Acute Assessment and Plan: History of essential hypertension, currently holding all antihypertensive Will resume beta-morena (6) Cirrhosis of liver: Qualifiers: Hepatic cirrhosis type: unspecified hepatic cirrhosis Ascites presence: without ascites Qualified Code(s): K74.60 - Unspecified cirrhosis of liver Code(s): K74.60 - Unspecified cirrhosis of liver Status: Acute Assessment and Plan: History of cirrhosis, LFTs have been within normal limits (7) DVT prophylaxis: Code(s): Z29.9 - Encounter for prophylactic measures, unspecified Status: Acute Assessment and Plan: DVT prophylaxis: Heparin SC Stress ulcer prophylaxis: Protonix (8) Suspected 2018 novel coronavirus infection: Code(s): Z20.822 - Contact with and (suspected) exposure to COVID-19 Status: Acute Assessment and Plan: SARS-CoV-2 PCR 05/13/[address] [facility] was negative -will discontinue isolation -rapid COVID test at [facility] -according the patient's , patient and her had tested positive for COVID in August 2020,they both have been vaccinated with Modern
[2021-05-19] MEDS: PROPOFOL IV EMULSION 100 ML 31.51 MG IV CONT ×2 (11:39→17:55)
[2021-05-19 12:44] LABS: Glucose Point of Care 236 mg/dl (65-105)
[2021-05-19] MEDS: PROPOFOL IV EMULSION 100 ML 27.57 MG IV CONT ×2 (14:54→20:28)
[2021-05-19 18:11] LABS: Glucose Point of Care 191 mg/dl (65-105)
[2021-05-20] VITALS (28 sets, daily range): BP systolic 109–152; BP diastolic 72–87; PULSE 91–100; RESP 14–26; TEMP 37.4–37.8; O2SAT 92–99
[2021-05-20] MEDS: PROPOFOL IV EMULSION 100 ML 31.51 MG IV CONT ×7 (00:29→22:31)
[2021-05-20] MEDS: IPRATROPIUM BR 0.02% INH SOLN 0.5 MG/2.5 ML VIAL INHALATION ×4 (02:13→19:56)
[2021-05-20] MEDS: ALBUTEROL SULFATE NEB 2.5 MG/0.5 ML INH INHALATION ×4 (02:13→19:56)
[2021-05-20 04:54] LABS: Alveolar/Arterial O2 Gradient 98.4 mmHg; Base Excess ABG 7.4 mEq/l (+/-2.0); Carboxyhemoglobin 0.3 % THb (0-2.0); Fractional Inspired Oxygen 30 %; HCO3 ABG 31.3 mEq/l (22.0-26.0); Methemoglobin ABG 0.1 %THb (0-1.5); Oxygen Content ABG 13.7 %vol (16.0-22.0); Oxygen Saturation ABG 94.8 % (95.0-100.0); Oxyhemoglobin 92.5 % THb (90.0-100.0); PCO2 ABG 41.1 mmHg (35.0-45.0); PO2 ABG 67.2 mmHg (80.0-100.0); PO2 FiO2 Ratio Arterial Blood 2.24 %; Reduced Hemoglobin 7.1 %THb (0-5.0); Total Hemoglobin 10.5 g/dL (12.0-18.0); pH ABG 7.499 (7.350-7.450)
[2021-05-20 04:55] LABS: Device VENTILATOR; Modified Allen's Test Unable to perform; Site Drawn RIGHT RADIAL
[2021-05-20 04:56] LABS: Arterial Blood Gas PEEP 5 cmH2O; Arterial Blood Gas Tidal Volume 400 ml; Arterial Blood Gas Vent Mode CMV; Arterial Blood Gas Ventilator rate 22 /MIN
[2021-05-20 05:49] LABS: Hematocrit 29.4 % (37.0-47.0); Hemoglobin 9.4 g/dL (12.0-15.0); Mean Corpuscular Hemoglobin 30.4 pg (26-34); Mean Corpuscular Volume 95.1 fl (80-100); Mean Platelet Volume 10.2 fl (7.4-10.4); Platelet Count Result 265 k/mm3 (150-375); Red Blood Count 3.09 M/mm3 (4.2-5.4); Red Cell Distribution Width 14.1 % (11.5-14.5); White Blood Count 13.8 K/mm3 (4.5-10.0)
[2021-05-20 06:01] LABS: Alanine Aminotransferase 28 U/L (4-35); Albumin Level 3.5 g/dL (3.5-5.1); Alkaline Phosphatase 172 U/L (38-126); Anion Gap 6 mmol/L (8-16); Aspartate Amino Transferase 33 U/L (14-36); Bilirubin,Total 0.4 mg/dL (0.2-1.3); Blood Urea Nitrogen 40 mg/dL (7-17); Calcium 9.1 mg/dL (8.4-10.2); Carbon Dioxide 32 mmol/L (22-30); Chloride 94 mmol/L (98-107); Estimated CRCL calculation 44 ml/min; Estimated Glomerular Filt Rate 32; Glucose 168 mg/dL (65-110); Magnesium 1.9 mg/dL (1.6-2.3); Potassium 3.9 mmol/L (3.4-5.0); Sodium 132 mmol/L (137-145)
[2021-05-20] MEDS: HEPARIN SODIUM 5,000 UNITS/ML VIAL 5000 UNITS SUB-Q ×3 (06:15→21:29)
[2021-05-20] MEDS: CENTRAL LINE FLUSH 10 ML IV PUSH ×4 (06:16→21:29)
[2021-05-20 06:21] LABS: Glucose Point of Care 168 mg/dl (65-105)
[2021-05-20 06:21] LABS: Glucose Point of Care 178 mg/dl (65-105)
[2021-05-20] MEDS: INSULIN GLARGINE (*BKC) 100 UNITS/ML 25 UNITS SUB-Q (08:31)
[2021-05-20] MEDS: FUROSEMIDE INJ 40 MG/4 ML VIAL IV PUSH ×2 (08:33→17:30)
[2021-05-20] MEDS: MINERAL OIL/WHITE PETROLATUM OINTMENT 1 APPLIC EACH EYE ×2 (08:33→21:29)
[2021-05-20] MEDS: ATORVASTATIN 10 MG TABLET PO (08:34)
[2021-05-20] MEDS: ASPIRIN 325 MG TABLET FEED TUBE (08:34)
[2021-05-20] MEDS: PANTOPRAZOLE SODIUM IV 40 MG VIAL IV PUSH (08:34)
--- NOTE | 2021-05-20 10:50 | PCDIET ---
Nutrition Follow-Up Complete: Nutrition Diagnosis: Inadequate oral intake related to oral intubation as evidenced by NPO status. Nutrition Goal: Patient to meet estimated nutritional needs. Goal met. Patient tolerating Glucerna 1.2 at 65mL/hr goal rate with 30mL water flush every 4 hours. Recommend decreasing Glucerna 1.2 to 35mL/hr if Propofol anticipated to continue at current rate. Last recorded weight is 128.9 kg which is down from last review. -I/O. Bowel Motility: Last documented BM on 05/19/21 x 3 Labs Reviewed: WBC (13.8), RBC (3.09), Hgb (9.4), Hct (29.4), Glu (168), BUN (40), Cr (1.6), Na (132) Meds Noted: Albuterol, Lantus, Lipitor, Lasix, Atrovent, Protonix, Propofol (rate of 31.51mL/hr provides 831kcal per day) Additional Notes: No documented skin breakdown. Will continue to monitor with same goal. Nutrition Monitoring and Evaluation: Follow up every Thursday/Thursday.
[2021-05-20 13:06] LABS: Glucose Point of Care 186 mg/dl (65-105)
--- NOTE | 2021-05-20 14:51 | WPDINTPN ---
Progress Note: A&P Assessment and Plan (1) Acute respiratory failure with hypoxia: Code(s): J96.01 - Acute respiratory failure with hypoxia Status: Acute Assessment and Plan: Pain presented with acute shortness of breath likely related NSTEMI, shock, pulmonary edema, pneumonia -on 05/12/2021: CTA chest at the [facility] in [facility], revealed no pulmonary embolism but right lung consolidation with alveolar septal thickening and air bronchograms prominent throughout the right lung with scattered ground-glass infiltrates in the left lung Chest x-ray reviewed and shows improvement PEEP is down to 5 and FiO2 is down at 30%. will decrease rate to 20 - Sedation holiday was done and weaning trial was done. patient did not do well on 02/06 pressure support ventilation trial as her tidal volumes were very low. she did tolerate higher pressure support for some time. patient was placed back on CMV. will re-attempt tomorrow after more diuresis -will continue diuresis with another dose of Lasix today - Continue bronchodilators - she will complete a course of Zosyn today and is off of vancomycin (initiated on 05/13/2021) COVID PCR negative (2) Shock: Code(s): R57.9 - Shock, unspecified Status: Acute Assessment and Plan: Off Levophed Cardiogenic versus septic -patient with bilateral diffuse infiltrates, likely pulmonary edema vs pneumonia - 05/13/2021 Blood cultures negative x2 -05/13/2021: Urine cultures negative -05/13/2021: Sputum cultures negative -off vancomycin now -continue Zosyn (initiated 05/13/2021) (3) NSTEMI (non-ST elevated myocardial infarction): Code(s): I21.4 - Non-ST elevation (NSTEMI) myocardial infarction Status: Acute Assessment and Plan: Patient with elevated troponin, no ST-T changes on the EKGs this morning -chest x-ray shows bilateral diffuse infiltrates likely pulmonary edema -patient started on aspirin, heparin infusion -due to patient being on vasopressors, did not start beta blockers -Appreciate cardiology evaluation recommendation -05/13/2021 echocardiogram: EF 55-60%, and the dimensions are normal. Grade 2 diastolic dysfunction RV systolic function is [id number] reduced mild pulmonary hypertension with RVSP of 37 mmHg. Mild aortic stenosis. -off heparin infusion now (4) Type 2 diabetes mellitus with hyperglycemia: Qualifiers: Diabetes mellitus snf insulin use: without termite technician use Qualified Code(s): E11.65 - Type 2 diabetes mellitus with hyperglycemia Code(s): E11.65 - Type 2 diabetes mellitus with hyperglycemia Status: Acute Assessment and Plan: Patient hyperglycemic history of diabetes, -continue sliding scale insulin and Accu-Cheks -continue Lantus -hemoglobin A1c 6.5 (5) Essential hypertension: Code(s): I10 - Essential (primary) hypertension Status: Acute Assessment and Plan: History of essential hypertension, currently holding all antihypertensive Will resume beta-morena (6) Cirrhosis of liver: Qualifiers: Hepatic cirrhosis type: unspecified hepatic cirrhosis Ascites presence: without ascites Qualified Code(s): K74.60 - Unspecified cirrhosis of liver Code(s): K74.60 - Unspecified cirrhosis of liver Status: Acute Assessment and Plan: History of cirrhosis, LFTs have been within normal limits (7) DVT prophylaxis: Code(s): Z29.9 - Encounter for prophylactic measures, unspecified Status: Acute Assessment and Plan: DVT prophylaxis: Heparin SC Stress ulcer prophylaxis: Protonix (8) Suspected 2019 novel coronavirus infection: Code(s): Z20.822 - Contact with and (suspected) exposure to COVID-19 Status: Acute Assessment and Plan: SARS-CoV-2 PCR 05/13/2021 at [facility] was negative -will discontinue isolation -rapid COVID test at [facility] -according the cassie
--- NOTE | 2021-05-20 16:41 | P.PNNP_ITS ---
Progress Note: A&P Assessment and Plan (1) BOONE (acute kidney injury): Code(s): N17.9 - Acute kidney failure, unspecified Status: Acute Assessment and Plan: * slowly improving * multifactorial etiology: - contrast exposure (CTA of chest at OSH) - hemodynamic instability - use of diuretics and ARB prior to admission - prerenal factors - component of rhabdomyolysis - cardiac issues - infection (pneumonia) * renal ultrasound without obstruction * urine electrolytes suggest prerenal azotemia * CPK greater than 1600. Will repeat this. * Her creatinine seems stable. * Because of the elevated CK will use bicarb and follow it with furosemide to prevent volume overload. We can use acetazolamide as well to lessen the sodium burden. * Will check a urinalysis tomorrow to follow the urine pH (2) Acute respiratory failure with hypoxia: Code(s): J96.01 - Acute respiratory failure with hypoxia Status: Acute Assessment and Plan: * presumably due to a combination of pneumonia, pulmonary edema, +/- NSTEMI * continue ventilator support * antibiotics for presumed pneumonia * weaning as tolerated * scheduled diuretics because of the bicarbonate (3) Shock: Code(s): R57.9 - Shock, unspecified Status: Acute Assessment and Plan: * resolved -- off pressors * follow culture data * continue antibiotics * follow trend of hemodynamics (4) NSTEMI (non-ST elevated myocardial infarction): Code(s): I21.4 - Non-ST elevation (NSTEMI) myocardial infarction Status: Acute Assessment and Plan: * Cardiology recommendations noted * elevated troponins related to acute illness than cardiac event (5) Diabetes: Code(s): E11.9 - Type 2 diabetes mellitus without complications Status: Acute Assessment and Plan: * follow accuchecks * glycemic control Will continue to follow. Subjective Date/time seen: 05/20/21 16:41 Interval history: the patient is in the ICU on the ventilator. Sedated with propofol. Exam Narrative: WDWN in NAD skin no rash head ncat lungs Bilateral coarse upper airway noise cor reg no rub abd BS+ nontender and soft ext no edema. Objective Data Vital Signs Vital Signs: Vital Signs - 24 hr 05/19/21 18:00 05/19/21 20:00 05/19/21 20:28 Temperature 36.2 C L Pulse Rate 91 86 87 Respiratory Rate 22 H 22 H 22 H Blood Pressure 110/66 116/73 Pulse Oximetry 94 95 05/19/21 20:35 05/19/21 20:41 05/19/21 20:43 Temperature Pulse Rate 86 86 88 Respiratory Rate 22 H 22 H Blood Pressure Pulse Oximetry 96 05/19/21 20:58 05/19/21 22:00 05/19/21 23:30 Temperature Pulse Rate 88 87 87 Respiratory Rate 29 H 22 H Blood Pressure 114/68 Pulse Oximetry 95 97 05/19/21 23:43 05/20/21 00:00 05/20/21 00:29 Temperature 37.7 C H Pulse Rate 94 92 94 Respiratory Rate 24 H 22 H 24 H Blood Pressure 116/74 Pulse Oximetry 94 05/20/21 02:00 05/20/21 02:12 05/20/21 02:13 Temperature Pulse Rate 98 96 94
--- NOTE | 2021-05-20 16:41 | PM.PNNEP ---
Progress Note: A&P Assessment and Plan (1) BOONE (acute kidney injury): Code(s): N17.9 - Acute kidney failure, unspecified Status: Acute Assessment and Plan: slowly improving multifactorial etiology: - contrast exposure (CTA of chest at OSH) - hemodynamic instability - use of diuretics and ARB prior to admission - prerenal factors - component of rhabdomyolysis - cardiac issues - infection (pneumonia) renal ultrasound without obstruction urine electrolytes suggest prerenal azotemia CPK greater than 1600. Will repeat this. Her creatinine seems stable. Because of the elevated CK will use bicarb and follow it with furosemide to prevent volume overload. We can use acetazolamide as well to lessen the sodium burden. Will check a urinalysis tomorrow to follow the urine pH (2) Acute respiratory failure with hypoxia: Code(s): J96.01 - Acute respiratory failure with hypoxia Status: Acute Assessment and Plan: presumably due to a combination of pneumonia, pulmonary edema, +/- NSTEMI continue ventilator support antibiotics for presumed pneumonia weaning as tolerated scheduled diuretics because of the bicarbonate (3) Shock: Code(s): R57.9 - Shock, unspecified Status: Acute Assessment and Plan: resolved -- off pressors follow culture data continue antibiotics follow trend of hemodynamics (4) NSTEMI (non-ST elevated myocardial infarction): Code(s): I21.4 - Non-ST elevation (NSTEMI) myocardial infarction Status: Acute Assessment and Plan: Cardiology recommendations noted elevated troponins related to acute illness than cardiac event (5) Diabetes: Code(s): E11.9 - Type 2 diabetes mellitus without complications Status: Acute Assessment and Plan: follow accuchecks glycemic control Will continue to follow. Subjective Date/time seen: 05/20/21 16:41 Interval history: the patient is in the ICU on the ventilator. Sedated with propofol. Exam Narrative: WDWN in NAD skin no rash head ncat lungs Bilateral coarse upper airway noise cor reg no rub abd BS+ nontender and soft ext no edema. Objective Data Vital Signs Vital Signs: Vital Signs - 24 hr 05/19/21 18:00 05/19/21 20:00 05/19/21 20:28 Temperature 36.2 C L Pulse Rate 91 86 87 Respiratory Rate 22 H 22 H 22 H Blood Pressure 110/66 116/73 Pulse Oximetry 94 95 05/19/21 20:35 05/19/21 20:41 05/19/21 20:43 Temperature Pulse Rate 86 86 88 Respiratory Rate 22 H 22 H Blood Pressure Pulse Oximetry 96 05/19/21 20:58 05/19/21 22:00 05/19/21 23:30 Temperature Pulse Rate 88 87 87 Respiratory Rate 29 H 22 H Blood Pressure 114/68 Pulse Oximetry 95 97 05/19/21 23:43 05/20/21 00:00 05/20/21 00:29 Temperature 37.7 C H Pulse Rate 94 92 94 Respiratory Rate 24 H 22 H 24 H Blood Pressure 116/74 Pulse Oximetry 94 05/20/21 02:00 05/20/21 02:12 05/20/21 02:13 Temperature Pulse Rate 98 96 94 Respiratory Rate 22 H 22 H Blood Pressure 133/72 Pulse Oximetry 93 92 05/20/21 03:17 05/20/21 04:00 05/20/21 04:57 Temperature 37.7 C H Pulse Rate 96 98 98 Respiratory Rate 22 H 22 H Blood Pressure 121/74 Pulse Oximetry 93 94 05/20/21 06:00 05/20/21 06:15 05/20/21 08:00 Temperature 37.5 C Pulse Rate 93 93 95 Respiratory Rate 22 H 22 H 22 H Blood Pressure 128/78 128/76 Pulse Oximetry 94 96 05/20/21 08:06 05/20/21 08:15 05/20/21 10:00 Temperature Pulse Rate 95 93 99 Respiratory Rate 22 H 22 H 19 Blood Pressure 152/78 H Pulse Oximetry 93 95 05/20/21 11:18 05/20/21 12:00 05/20/21 13:46 Temperature 37.4 C Pulse Rate 99 100 93 Respiratory Rate 26 H 22 H Blood Pressure 138/87 Pulse Oximetry 94 95 94 05/20/21 14:00 Temperature Pulse Rate 91 Respir
[2021-05-20] MEDS: acetaZOLAMIDE TAB 250 MG TABLET 500 MG PO (17:31)
[2021-05-20 17:34] LABS: Glucose Point of Care 158 mg/dl (65-105)
[2021-05-20] MEDS: SODIUM BICARBONATE 8.4% 150 MEQ in WATER, STERILE FOR INJECTION 950 ML 50 MEQ IV CONT (17:34)
[2021-05-21] VITALS (29 sets, daily range): BP systolic 104–142; BP diastolic 59–84; PULSE 85–109; RESP 18–31; TEMP 36.2–37.7; O2SAT 93–99
[2021-05-21 00:34] LABS: Glucose Point of Care 160 mg/dl (65-105)
[2021-05-21] MEDS: PROPOFOL IV EMULSION 100 ML 31.51 MG IV CONT ×3 (02:03→09:27)
--- NOTE | 2021-05-21 03:14 | PC.NURSE ---
0230 pt ABG worsening and pt stating he cannot breath. Decision made to intubate. Dr Aguayo spokewith pt with Nurse Sylvia Judd in attendance and pt agreed to intubation, central line, and art line.
[2021-05-21] MEDS: ALBUTEROL SULFATE NEB 2.5 MG/0.5 ML INH INHALATION ×4 (03:37→20:58)
[2021-05-21] MEDS: IPRATROPIUM BR 0.02% INH SOLN 0.5 MG/2.5 ML VIAL INHALATION ×4 (03:37→20:59)
[2021-05-21 04:24] LABS: Hematocrit 31.2 % (37.0-47.0); Hemoglobin 9.7 g/dL (12.0-15.0); Mean Corpuscular HGB Conc 31.1 g/dl (32-36); Mean Corpuscular Hemoglobin 30.3 pg (26-34); Mean Corpuscular Volume 97.5 fl (80-100); Mean Platelet Volume 10.5 fl (7.4-10.4); Platelet Count Result 321 k/mm3 (150-375); Red Cell Distribution Width 14.2 % (11.5-14.5); White Blood Count 14.1 K/mm3 (4.5-10.0)
[2021-05-21] MEDS: HEPARIN SODIUM 5,000 UNITS/ML VIAL 5000 UNITS SUB-Q ×2 (06:18→14:54)
[2021-05-21] MEDS: CENTRAL LINE FLUSH 10 ML IV PUSH ×3 (06:18→18:02)
[2021-05-21 06:27] LABS: Alveolar/Arterial O2 Gradient 100.6 mmHg; Base Excess ABG 9.3 mEq/l (+/-2.0); Carboxyhemoglobin 0.3 % THb (0-2.0); Fractional Inspired Oxygen 30 %; Methemoglobin ABG 0.2 %THb (0-1.5); Oxygen Content ABG 15.1 %vol (16.0-22.0); Oxygen Saturation ABG 94.6 % (95.0-100.0); Oxyhemoglobin 92.3 % THb (90.0-100.0); PO2 ABG 65.1 mmHg (80.0-100.0); PO2 FiO2 Ratio Arterial Blood 2.17 %; Reduced Hemoglobin 7.2 %THb (0-5.0); Total Hemoglobin 11.6 g/dL (12.0-18.0)
[2021-05-21 06:29] LABS: Device VENTILATOR; Modified Allen's Test Pass; Site Drawn RIGHT RADIAL; pH ABG 7.523 (7.350-7.450)
[2021-05-21 06:30] LABS: Arterial Blood Gas PEEP 5 cmH2O; Arterial Blood Gas Tidal Volume 400 ml; Arterial Blood Gas Vent Mode CMV; Arterial Blood Gas Ventilator rate 20 /MIN
[2021-05-21 06:44] LABS: Alanine Aminotransferase 25 U/L (4-35); Albumin Level 3.7 g/dL (3.5-5.1); Alkaline Phosphatase 170 U/L (38-126); Anion Gap 10 mmol/L (8-16); Aspartate Amino Transferase 29 U/L (14-36); Bilirubin,Total 0.5 mg/dL (0.2-1.3); Blood Urea Nitrogen 42 mg/dL (7-17); Calcium 9.4 mg/dL (8.4-10.2); Carbon Dioxide 33 mmol/L (22-30); Chloride 93 mmol/L (98-107); Estimated CRCL calculation 37 ml/min; Estimated Glomerular Filt Rate 27; Glucose 180 mg/dL (65-110); Potassium 3.6 mmol/L (3.4-5.0); Sodium 136 mmol/L (137-145)
[2021-05-21 09:16] LABS: Alveolar/Arterial O2 Gradient 86.2 mmHg; Carboxyhemoglobin 0.3 % THb (0-2.0); Device VENTILATOR; Fractional Inspired Oxygen 30 %; HCO3 ABG 34.6 mEq/l (22.0-26.0); Methemoglobin ABG 0.1 %THb (0-1.5); Modified Allen's Test Pass; Oxygen Content ABG 14.3 %vol (16.0-22.0); Oxygen Saturation ABG 95.5 % (95.0-100.0); Oxyhemoglobin 93.7 % THb (90.0-100.0); PCO2 ABG 46.6 mmHg (35.0-45.0); PO2 ABG 72.9 mmHg (80.0-100.0); PO2 FiO2 Ratio Arterial Blood 2.43 %; Reduced Hemoglobin 5.9 %THb (0-5.0); Site Drawn RIGHT RADIAL; Total Hemoglobin 10.8 g/dL (12.0-18.0); pH ABG 7.488 (7.350-7.450)
[2021-05-21 09:17] LABS: Arterial Blood Gas PEEP 5 cmH2O; Arterial Blood Gas Pressure Support 5 cmH2O; Arterial Blood Gas Vent Mode SPONTANEOUS
[2021-05-21] MEDS: acetaZOLAMIDE TAB 250 MG TABLET 500 MG PO ×2 (09:28→18:01)
[2021-05-21] MEDS: ASPIRIN 325 MG TABLET FEED TUBE (09:28)
[2021-05-21] MEDS: FUROSEMIDE INJ 40 MG/4 ML VIAL IV PUSH (09:28)
[2021-05-21] MEDS: ATORVASTATIN 10 MG TABLET PO (09:28)
[2021-05-21] MEDS: INSULIN GLARGINE (*BKC) 100 UNITS/ML 25 UNITS SUB-Q (09:29)
[2021-05-21] MEDS: PANTOPRAZOLE SODIUM IV 40 MG VIAL IV PUSH (09:29)
[2021-05-21 10:24] LABS: Creatine Kinase 141 U/L (30-135)
--- NOTE | 2021-05-21 10:48 | PCDIET ---
Nutrition Follow-Up Complete: Nutrition Diagnosis: Inadequate oral intake related to oral intubation as evidenced by NPO status. Nutrition Goal: Patient to meet estimated nutritional needs. Goal in progress. Patient previously tolerating Glucerna 1.2 at 65mL/hr with 30mL water flush every 4 hours. Tube feedings currently on hold for breathing trial with anticipated extubation later today. Last recorded weight is 122 kg which is down from last review. -I/O. Bowel Motility: Last documented BM on 05/19/21 x 3. Labs Reviewed: WBC (14.1), RBC (3.20), Hgb (9.7), Hct (31.2), Glu (180), BUN (42), Cr (1.9), Na (136) Meds Noted: Diamox, Albuterol, Lantus, Lipitor, Lasix, Atrovent, Protonix Additional Notes: Patient off all sedation, per RN. Expect tube feedings to resume if unable to extubate. Will continue to monitor with same goal. Nutrition Monitoring and Evaluation: Follow up every Thursday/Thursday.
[2021-05-21 11:13] LABS: Triglycerides 794 mg/dL (<150)
--- NOTE | 2021-05-21 12:09 | P.PNNP_ITS ---
Progress Note: A&P Assessment and Plan (1) BOONE (acute kidney injury): Code(s): N17.9 - Acute kidney failure, unspecified Status: Acute Assessment and Plan: * slowly improving * multifactorial etiology: - contrast exposure (CTA of chest at OSH) - hemodynamic instability - use of diuretics and ARB prior to admission - prerenal factors - component of rhabdomyolysis - cardiac issues - infection (pneumonia) * renal ultrasound without obstruction * urine electrolytes suggest prerenal azotemia * CPK greater than 1600 earlier, normal today. Now off of bicarb drip. * Her creatinine charley a little bit. * Hemodynamics are okay. No skin rash to suggest AIN. possibly due to the furosemide. Will hold this. (2) Acute respiratory failure with hypoxia: Code(s): J96.01 - Acute respiratory failure with hypoxia Status: Acute Assessment and Plan: * presumably due to a combination of pneumonia, pulmonary edema, +/- NSTEMI * continue ventilator support * antibiotics for presumed pneumonia * weaning as tolerated * scheduled diuretics because of the bicarbonate (3) Shock: Code(s): R57.9 - Shock, unspecified Status: Acute Assessment and Plan: * resolved (4) NSTEMI (non-ST elevated myocardial infarction): Code(s): I21.4 - Non-ST elevation (NSTEMI) myocardial infarction Status: Acute Assessment and Plan: * Cardiology recommendations noted * elevated troponins related to acute illness than cardiac event (5) Diabetes: Code(s): E11.9 - Type 2 diabetes mellitus without complications Status: Acute Assessment and Plan: * follow accuchecks * glycemic control Subjective Date/time seen: 05/21/21 12:09 Interval history: the patient is in the ICU on the ventilator. Still sedated. Exam Narrative: WDWN in NAD skin no rash head ncat lungs Bilateral coarse upper airway noise cor reg no rub or gallop abd BS+ nontender and soft ext no edema or cyanosis. Objective Data Vital Signs Vital Signs: Vital Signs - 24 hr 05/20/21 13:46 05/20/21 14:00 05/20/21 16:00 Temperature 37.4 C Pulse Rate 93 91 93 Respiratory Rate 22 H 14 20 Blood Pressure 130/80 120/80 Pulse Oximetry 94 93 94 05/20/21 18:00 05/20/21 18:29 05/20/21 19:25 Temperature Pulse Rate 91 92 95 Respiratory Rate 20 20 Blood Pressure 109/79 Pulse Oximetry 95 95 05/20/21 19:56 05/20/21 20:00 05/20/21 20:06 Temperature 37.8 C H Pulse Rate 93 96 97 Respiratory Rate 20 20 20 Blood Pressure 115/78 Pulse Oximetry 97 98 05/20/21 22:00 05/20/21 22:31 05/20/21 23:13 Temperature Pulse Rate 93 97 93 Respiratory Rate 20 20 Blood Pressure 112/82 Pulse Oximetry 99 96 05/21/21 00:00 05/21/21 01:42 05/21/21 02:00 Temperature 37.7 C H Pulse Rate 94 94 93 Respiratory Rate 20 20 20 Blood Pressure 104/70 112/74 Pulse Oximetry 98 93 05/21/21 02:03 05/21/21 03:40 05/21/21 03:41 Temperature
--- NOTE | 2021-05-21 12:09 | PM.PNNEP ---
Progress Note: A&P Assessment and Plan (1) BOONE (acute kidney injury): Code(s): N17.9 - Acute kidney failure, unspecified Status: Acute Assessment and Plan: slowly improving multifactorial etiology: - contrast exposure (CTA of chest at OSH) - hemodynamic instability - use of diuretics and ARB prior to admission - prerenal factors - component of rhabdomyolysis - cardiac issues - infection (pneumonia) renal ultrasound without obstruction urine electrolytes suggest prerenal azotemia CPK greater than 1600 earlier, normal today. Now off of bicarb drip. Her creatinine charley a little bit. Hemodynamics are okay. No skin rash to suggest AIN. possibly due to the furosemide. Will hold this. (2) Acute respiratory failure with hypoxia: Code(s): J96.01 - Acute respiratory failure with hypoxia Status: Acute Assessment and Plan: presumably due to a combination of pneumonia, pulmonary edema, +/- NSTEMI continue ventilator support antibiotics for presumed pneumonia weaning as tolerated scheduled diuretics because of the bicarbonate (3) Shock: Code(s): R57.9 - Shock, unspecified Status: Acute Assessment and Plan: resolved (4) NSTEMI (non-ST elevated myocardial infarction): Code(s): I21.4 - Non-ST elevation (NSTEMI) myocardial infarction Status: Acute Assessment and Plan: Cardiology recommendations noted elevated troponins related to acute illness than cardiac event (5) Diabetes: Code(s): E11.9 - Type 2 diabetes mellitus without complications Status: Acute Assessment and Plan: follow accuchecks glycemic control Subjective Date/time seen: 05/21/21 12:09 Interval history: the patient is in the ICU on the ventilator. Still sedated. Exam Narrative: WDWN in NAD skin no rash head ncat lungs Bilateral coarse upper airway noise cor reg no rub or gallop abd BS+ nontender and soft ext no edema or cyanosis. Objective Data Vital Signs Vital Signs: Vital Signs - 24 hr 05/20/21 13:46 05/20/21 14:00 05/20/21 16:00 Temperature 37.4 C Pulse Rate 93 91 93 Respiratory Rate 22 H 14 20 Blood Pressure 130/80 120/80 Pulse Oximetry 94 93 94 05/20/21 18:00 05/20/21 18:29 05/20/21 19:25 Temperature Pulse Rate 91 92 95 Respiratory Rate 20 20 Blood Pressure 109/79 Pulse Oximetry 95 95 05/20/21 19:56 05/20/21 20:00 05/20/21 20:06 Temperature 37.8 C H Pulse Rate 93 96 97 Respiratory Rate 20 20 20 Blood Pressure 115/78 Pulse Oximetry 97 98 05/20/21 22:00 05/20/21 22:31 05/20/21 23:13 Temperature Pulse Rate 93 97 93 Respiratory Rate 20 20 Blood Pressure 112/82 Pulse Oximetry 99 96 05/21/21 00:00 05/21/21 01:42 05/21/21 02:00 Temperature 37.7 C H Pulse Rate 94 94 93 Respiratory Rate 20 20 20 Blood Pressure 104/70 112/74 Pulse Oximetry 98 93 05/21/21 02:03 05/21/21 03:40 05/21/21 03:41 Temperature Pulse Rate 94 88 96 Respiratory Rate 20 20 Blood Pressure Pulse Oximetry 95 05/21/21 03:44 05/21/21 04:38 05/21/21 06:00 Temperature 37.7 C H Pulse Rate 95 96 94 Respiratory Rate 20 18 20 Blood Pressure 112/76 Pulse Oximetry 94 05/21/21 06:11 05/21/21 07:49 05/21/21 08:00 Temperature 37.7 C H Pulse Rate 93 85 85 Respiratory Rate 22 H 22 H Blood Pressure 133/81 Pulse Oximetry 94 95 05/21/21 08:49 05/21/21 08:56 05/21/21 09:10 Temperature Pulse Rate 99 102 H 100 Respiratory Rate 25 H 28 H Blood Pressure Pulse Oximetry 95 05/21/21 09:27 05/21/21 10:00 05/21/21 11:45 Temperature Pulse Rate 85 108 H 106 H Respiratory Rate 22 H 31 H Blood Pressure 128/77 Pulse Oximetry 95 95 Intake/Output Intake/Output: Intake & Output 05/18/21 05/19/21 05/20/21 05/21/21 23:59 23:59 23:59
--- NOTE | 2021-05-21 12:10 | WPDINTPN ---
Progress Note: A&P Assessment and Plan (1) Acute respiratory failure with hypoxia: Code(s): J96.01 - Acute respiratory failure with hypoxia Status: Acute Assessment and Plan: Pain presented with acute shortness of breath likely related NSTEMI, shock, pulmonary edema, pneumonia -on 05/12/2021: CTA chest at the [facility] in [facility], revealed no pulmonary embolism but right lung consolidation with alveolar septal thickening and air bronchograms prominent throughout the right lung with scattered ground-glass infiltrates in the left lung Chest x-ray reviewed and shows improvement PEEP is down to 5 and FiO2 is down at 30%. respiratory rate is at 20 5/5 PSV SBT done for more than 1 hour. RSBI, ABGI and Vitals acceptable. Pt awake and following commands. Will extubate and monitor. NPO for now. Bipap PRN -will continue diuresis with another dose of Lasix today - Continue bronchodilators - she has completed a course of Zosyn. Will repeat cultures if patient remains febrile COVID PCR negative (2) Shock: Code(s): R57.9 - Shock, unspecified Status: Acute Assessment and Plan: Off Levophed Cardiogenic versus septic -patient with bilateral diffuse infiltrates, likely pulmonary edema vs pneumonia - 05/13/2021 Blood cultures negative x2 -05/13/2021: Urine cultures negative -05/13/2021: Sputum cultures negative -off vancomycin now - completed a course of Zosyn (3) NSTEMI (non-ST elevated myocardial infarction): Code(s): I21.4 - Non-ST elevation (NSTEMI) myocardial infarction Status: Acute Assessment and Plan: Patient with elevated troponin, no ST-T changes on the EKGs this morning -chest x-ray shows bilateral diffuse infiltrates likely pulmonary edema -patient started on aspirin, heparin infusion -due to patient being on vasopressors, did not start beta blockers -Appreciate cardiology evaluation recommendation -05/13/2021 echocardiogram: EF 55-60%, and the dimensions are normal. Grade 2 diastolic dysfunction RV systolic function is [id number] reduced mild pulmonary hypertension with RVSP of 37 mmHg. Mild aortic stenosis. -off heparin infusion now (4) Type 2 diabetes mellitus with hyperglycemia: Qualifiers: Diabetes mellitus residential insulin use: without residential use Qualified Code(s): E11.65 - Type 2 diabetes mellitus with hyperglycemia Code(s): E11.65 - Type 2 diabetes mellitus with hyperglycemia Status: Acute Assessment and Plan: Patient hyperglycemic history of diabetes, -continue sliding scale insulin and Accu-Cheks -continue Lantus -hemoglobin A1c 6.5 (5) DVT prophylaxis: Code(s): Z29.9 - Encounter for prophylactic measures, unspecified Status: Acute Assessment and Plan: DVT prophylaxis: Heparin SC Stress ulcer prophylaxis: Protonix (6) Suspected 2019 novel coronavirus infection: Code(s): Z20.822 - Contact with and (suspected) exposure to COVID-19 Status: Acute Assessment and Plan: SARS-CoV-2 PCR 05/13/2021 at [facility] was negative -will discontinue isolation -rapid COVID test at [facility] -according the patient's , patient and her had tested positive for COVID in August 2020,they both have been vaccinated with Moderna vaccine in December 2020 - (7) BOONE (acute kidney injury): Code(s): N17.9 - Acute kidney failure, unspecified Status: Acute Assessment and Plan: Patient with acute kidney injury creatinine on admission was 0.9, on admission. Creatinine is 2.20 this morning -likely related to hypotension, hypoxia, septic shock, use of diuretics and ARB, component of rhabdomyolysis, infection -05/14/2021 renal ultrasound: Normal kidney size, no hydronephrosis --nephrology has been consulted appreciate their evaluation recommendations - bicarb infusion discontinued as patient alkalotic - patient on Lasix and Diamo
[2021-05-21 12:15] LABS: Add Urine Microscopic? YES; Appearance Urine Clear (Clear); Bilirubin Urine Negative (Negative); Blood Urine Negative (Negative); Color Urine Yellow (Yellow); Glucose Urine UA Negative (Negative); Ketones Urine Negative (Negative); Leukocyte Esterase Ur Negative LEU/UL (NEGATIVE); Nitrate Urine Negative (Negative); Protein Urine 1+ mg/dL (Negative); Specific Grav Ur 1.012 (1.001-1.035); Squamous Epithelial Cell Urine Rare /hpf (Few); Urobilinogen Urine Negative mg/dL (<2.0); WBC Urine 0-3 /hpf (0-3)
[2021-05-21 12:25] LABS: Glucose Point of Care 200 mg/dl (65-105)
[2021-05-21 17:35] LABS: Glucose Point of Care 154 mg/dl (65-105)
[2021-05-22] VITALS (18 sets, daily range): BP systolic 96–136; BP diastolic 58–81; PULSE 96–108; RESP 16–28; TEMP 35.8–36.6; O2SAT 89–99
[2021-05-22] MEDS: IPRATROPIUM BR 0.02% INH SOLN 0.5 MG/2.5 ML VIAL INHALATION ×4 (02:38→22:14)
[2021-05-22] MEDS: ALBUTEROL SULFATE NEB 2.5 MG/0.5 ML INH INHALATION ×4 (02:38→22:14)
[2021-05-22 06:31] LABS: Hematocrit 31.9 % (37.0-47.0); Hemoglobin 9.8 g/dL (12.0-15.0); Mean Corpuscular HGB Conc 30.7 g/dl (32-36); Mean Corpuscular Hemoglobin 29.8 pg (26-34); Mean Platelet Volume 9.9 fl (7.4-10.4); Platelet Count Result 354 k/mm3 (150-375); Red Blood Count 3.29 M/mm3 (4.2-5.4)
[2021-05-22 06:46] LABS: Alanine Aminotransferase 25 U/L (4-35); Albumin Level 4.1 g/dL (3.5-5.1); Alkaline Phosphatase 149 U/L (38-126); Anion Gap 14 mmol/L (8-16); Aspartate Amino Transferase 31 U/L (14-36); Bilirubin,Total 0.6 mg/dL (0.2-1.3); Blood Urea Nitrogen 42 mg/dL (7-17); Calcium 9.3 mg/dL (8.4-10.2); Carbon Dioxide 30 mmol/L (22-30); Chloride 92 mmol/L (98-107); Estimated CRCL calculation 38 ml/min; Estimated Glomerular Filt Rate 28; Glucose 156 mg/dL (65-110); Magnesium 2.2 mg/dL (1.6-2.3); Phosphorus 5.8 mg/dL (2.5-4.5); Potassium 3.2 mmol/L (3.4-5.0); Sodium 136 mmol/L (137-145); Triglycerides 367 mg/dL (<150)
[2021-05-22] MEDS: CENTRAL LINE FLUSH 10 ML IV PUSH ×5 (07:38→22:13)
[2021-05-22] MEDS: HEPARIN SODIUM 5,000 UNITS/ML VIAL 5000 UNITS SUB-Q ×4 (07:38→22:12)
[2021-05-22] MEDS: PANTOPRAZOLE SODIUM IV 40 MG VIAL IV PUSH (09:36)
[2021-05-22] MEDS: ASPIRIN 325 MG TABLET FEED TUBE (09:36)
[2021-05-22] MEDS: INSULIN GLARGINE (*BKC) 100 UNITS/ML 25 UNITS SUB-Q (09:36)
[2021-05-22] MEDS: ATORVASTATIN 10 MG TABLET PO (09:36)
[2021-05-22] MEDS: FUROSEMIDE INJ 40 MG/4 ML VIAL IV PUSH (11:58)
--- NOTE | 2021-05-22 12:01 | PCDIET ---
ICU Rounding Note: Patient extubated on 05/21/21. MD ordering [employer] evaluation prior to diet advancement. Last recorded weight is 122kg which is stable. Bowel Motility: BM x 1 today. Labs Reviewed: WBC (20.0), RBC (3.29), Hgb (9.8), Hct (31.9), Glu (156), BUN (42), Cr (1.8), K (3.2), Na (136), PO4 (5.8), TG (367) Meds Noted: Albuterol, Lipitor, Lasix, Novolog, Lantus, Atrovent, Protonix, KCl Additional Notes: No documented skin breakdown. Following daily in ICU rounds. Assessing/reassessing every 3 days.
[2021-05-22 12:05] LABS: Glucose Point of Care 148 mg/dl (65-105)
--- NOTE | 2021-05-22 14:02 | WPDINTPN ---
Progress Note: A&P Assessment and Plan (1) Acute respiratory failure with hypoxia: Code(s): J96.01 - Acute respiratory failure with hypoxia Status: Acute Assessment and Plan: Pain presented with acute shortness of breath likely related NSTEMI, shock, pulmonary edema, pneumonia -on 05/12/2021: CTA chest at the [facility] in [facility], revealed no pulmonary embolism but right lung consolidation with alveolar septal thickening and air bronchograms prominent throughout the right lung with scattered ground-glass infiltrates in the left lung - Extubated successfully on 05/21/2021 -on 2 L nasal cannula with good O2 sats - Continue bronchodilators -continue diuresis -patient has completed a course of Zosyn. Will repeat cultures if patient remains febrile COVID PCR negative (2) Shock: Code(s): R57.9 - Shock, unspecified Status: Acute Assessment and Plan: RESOLVED Off Levophed Cardiogenic versus septic -patient with bilateral diffuse infiltrates, likely pulmonary edema vs pneumonia - 05/13/2021 Blood cultures negative x2 -05/13/2021: Urine cultures negative -05/13/2021: Sputum cultures negative -off vancomycin now - completed a course of Zosyn (3) NSTEMI (non-ST elevated myocardial infarction): Code(s): I21.4 - Non-ST elevation (NSTEMI) myocardial infarction Status: Acute Assessment and Plan: Patient with elevated troponin, no ST-T changes on the EKGs this morning -chest x-ray shows bilateral diffuse infiltrates likely pulmonary edema -patient started on aspirin, heparin infusion -due to patient being on vasopressors, did not start beta blockers -Appreciate cardiology evaluation recommendation -05/13/2021 echocardiogram: EF 55-60%, and the dimensions are normal. Grade 2 diastolic dysfunction RV systolic function is [id number] reduced mild pulmonary hypertension with RVSP of 37 mmHg. Mild aortic stenosis. -off heparin infusion now (4) Type 2 diabetes mellitus with hyperglycemia: Qualifiers: Diabetes mellitus shelter insulin use: without exterminator helper use Qualified Code(s): E11.65 - Type 2 diabetes mellitus with hyperglycemia Code(s): E11.65 - Type 2 diabetes mellitus with hyperglycemia Status: Acute Assessment and Plan: Patient hyperglycemic history of diabetes, -continue sliding scale insulin and Accu-Cheks -continue Lantus -hemoglobin A1c 6.5 (5) Suspected 2019 novel coronavirus infection: Code(s): Z20.822 - Contact with and (suspected) exposure to COVID-19 Status: Acute Assessment and Plan: SARS-CoV-2 PCR 05/13/2021 at [facility] was negative -will discontinue isolation -rapid COVID test at [facility] -according the patient's , patient and her had tested positive for COVID in August 2020,they both have been vaccinated with Moderna vaccine in December 2020 - (6) BOONE (acute kidney injury): Code(s): N17.9 - Acute kidney failure, unspecified Status: Acute Assessment and Plan: Patient with acute kidney injury creatinine on admission was 0.9, on admission. Creatinine is 2.20 this morning -likely related to hypotension, hypoxia, septic shock, use of diuretics and ARB, component of rhabdomyolysis, infection -05/14/2021 renal ultrasound: Normal kidney size, no hydronephrosis --nephrology has been consulted appreciate their evaluation recommendations - bicarb infusion discontinued as patient alkalotic - patient on Lasix and Diamox as per Nephrology -Continue to diurese and monitor urine output (7) Hypertriglyceridemia: Code(s): E78.1 - Pure hyperglyceridemia Status: Acute Assessment and Plan: patient triglyceride level today was 794 patient is now off of propofol as she is getting extubated will repeat level tomorrow (8) Cirrhosis of liver: Qualifiers: Hepatic cirrhosis type: unspecified hepatic cirrhosi
--- NOTE | 2021-05-22 14:21 | PCSTNOTE ---
Please refer to the Bedside Swallow Evaluation in the EMR. Please note, silent aspiration cannot be ruled out at bedside.
[2021-05-22 17:10] LABS: Glucose Point of Care 167 mg/dl (65-105)
--- NOTE | 2021-05-22 17:26 | PM.PNNEP ---
Progress Note: A&P Assessment and Plan (1) BOONE (acute kidney injury): Code(s): N17.9 - Acute kidney failure, unspecified Status: Acute Assessment and Plan: slowly improving multifactorial etiology: - contrast exposure (CTA of chest at OSH) - hemodynamic instability - use of diuretics and ARB prior to admission - prerenal factors - component of rhabdomyolysis - cardiac issues - infection (pneumonia) renal ultrasound without obstruction urine electrolytes suggest prerenal azotemia CPK greater than 1600 earlier, normal today. Now off of bicarb drip. her creatinine is back down. (2) Acute respiratory failure with hypoxia: Code(s): J96.01 - Acute respiratory failure with hypoxia Status: Acute Assessment and Plan: presumably due to a combination of pneumonia, pulmonary edema, +/- NSTEMI Now off the ventilator and extubated. She finished her antibiotics. Her bicarbonate is a little bit high but she probably could use this because of her CO2 retention. So she is off the Diamox now. (3) Shock: Code(s): R57.9 - Shock, unspecified Status: Acute Assessment and Plan: resolved (4) NSTEMI (non-ST elevated myocardial infarction): Code(s): I21.4 - Non-ST elevation (NSTEMI) myocardial infarction Status: Acute Assessment and Plan: Cardiology recommendations noted elevated troponins related to acute illness than cardiac event (5) Diabetes: Code(s): E11.9 - Type 2 diabetes mellitus without complications Status: Acute Assessment and Plan: follow accuchecks glycemic control Subjective Date/time seen: 05/22/21 17:26 Interval history: the patient is in the ICU Now extubated. Son, Malcom, is in the room with her. We discussed the case. Patient is alert and interactive. Exam Narrative: WDWN Female in NAD skin no rash head ncat lungs Bilateral coarse upper airway noise cor reg no rub or gallop abd BS+ nontender and soft ext 1+ edema or cyanosis. Objective Data Vital Signs Vital Signs: Vital Signs - 24 hr 05/21/21 18:00 05/21/21 20:00 05/21/21 21:00 Temperature 36.2 C L Pulse Rate 101 H 103 H 100 Respiratory Rate 30 H 26 H 24 H Blood Pressure 126/70 131/71 Pulse Oximetry 96 97 05/21/21 21:01 05/21/21 22:00 05/22/21 00:00 Temperature Pulse Rate 102 H 102 H 105 H Respiratory Rate 27 H 22 H 21 H Blood Pressure 130/82 120/58 L Pulse Oximetry 96 97 95 05/22/21 02:00 05/22/21 02:41 05/22/21 04:00 Temperature 36.3 C L Pulse Rate 108 H 105 H 100 Respiratory Rate 22 H 22 H 23 H Blood Pressure 96/62 L 128/69 Pulse Oximetry 94 98 05/22/21 06:00 05/22/21 07:44 05/22/21 08:00 Temperature 36.4 C L Pulse Rate 105 H 105 H 96 Respiratory Rate 18 25 H Blood Pressure 125/76 121/74 Pulse Oximetry 99 98 05/22/21 09:28 05/22/21 09:32 05/22/21 10:00 Temperature Pulse Rate 98 99 Respiratory Rate 16 28 H Blood Pressure 129/70 Pulse Oximetry 98 89 L 05/22/21 15:13 05/22/21 16:00 Temperature Pulse Rate 100 98 Respiratory Rate 16 22 H Blood Pressure 119/81 Pulse Oximetry 97 Intake/Output Intake/Output: Intake & Output 05/19/21 05/20/21 05/21/21 05/22/21 23:59 23:59 23:59 23:59 Intake Total 3059 1898 1175 400 Output Total 2925 2800 1727 1650 Balance 134 908 -106 -4538 Meds/Results Medications: Active Medications Generic Name Dose Route Start Last Admin Trade Name Freq PRN Reason Stop Dose Admin Albuterol 2.5 mg 05/13/21 14:00 05/22/21 15:12 Albuterol Sulfate Neb 2.5 Mg/0.5 Ml Inh INHALATION 2.5 mg Q6HRT JUAN Administration Aspirin 325 mg 05/17/21 13:25 05/22/21 09:36 Aspirin 325 Mg Tablet FEED TUBE 325 mg DAILY@0800 [facility] Administration Atorvastatin Calcium 10 mg 05/13/21 09:00 05/22/21 09:
--- NOTE | 2021-05-22 18:20 | PC.NURSE ---
TRANSFERED TO ROOM 347 PER BED. REPORT GIVEN TO ROBERTO JOHNSON. ALL QUESTIONS ANSWERED.
[2021-05-22 21:05] LABS: Glucose Point of Care 143 mg/dl (65-105)
[2021-05-23] VITALS (15 sets, daily range): BP systolic 134–148; BP diastolic 58–77; PULSE 92–103; RESP 18–22; TEMP 35.6–37.7; O2SAT 94–100
[2021-05-23] MEDS: ACETAMINOPHEN 325 MG TABLET 650 MG PO (00:55)
[2021-05-23] MEDS: ALBUTEROL SULFATE NEB 2.5 MG/0.5 ML INH INHALATION ×3 (02:52→20:41)
[2021-05-23] MEDS: IPRATROPIUM BR 0.02% INH SOLN 0.5 MG/2.5 ML VIAL INHALATION ×3 (02:53→20:41)
[2021-05-23] MEDS: CENTRAL LINE FLUSH 20 ML IV PUSH (04:45)
[2021-05-23 04:50] LABS: Basophils Absolute Auto 0.1 K/mm3 (0.0-0.1); Basophils Percent Auto 0.3 % (0.2-1.2); Eosinophils Absolute Auto 0.5 K/mm3 (0-0.3); Eosinophils Percent Auto 2.6 % (0-4.4); Hematocrit 29.1 % (37.0-47.0); Hemoglobin 9.2 g/dL (12.0-15.0); Immature Granulocyte Absolute 0.21 K/mm3 (0.00-0.031); Immature Granulocyte Percent A 1.1 % (0-0.5); Lymphocytes Absolute Auto 1.94 K/mm3 (0.9-3.2); Mean Corpuscular HGB Conc 31.6 g/dl (32-36); Mean Corpuscular Hemoglobin 30.2 pg (26-34); Mean Corpuscular Volume 95.4 fl (80-100); Mean Platelet Volume 9.4 fl (7.4-10.4); Monocytes Absolute Auto 0.8 K/mm3 (0.1-0.6); Monocytes Percent Auto 4.3 % (2.6-8.5); Neutrophils Absolute Auto 15.9 K/mm3 (1.3-6.7); Neutrophils Percent Auto 81.7 % (45.5-73.1); Platelet Count Result 334 k/mm3 (150-375); Red Blood Count 3.05 M/mm3 (4.2-5.4); White Blood Count 19.5 K/mm3 (4.5-10.0)
[2021-05-23 05:05] LABS: Alanine Aminotransferase 23 U/L (4-35); Albumin Level 4.1 g/dL (3.5-5.1); Alkaline Phosphatase 135 U/L (38-126); Anion Gap 12 mmol/L (8-16); Aspartate Amino Transferase 31 U/L (14-36); Bilirubin,Total 0.9 mg/dL (0.2-1.3); Blood Urea Nitrogen 40 mg/dL (7-17); Calcium 9.1 mg/dL (8.4-10.2); Carbon Dioxide 27 mmol/L (22-30); Chloride 95 mmol/L (98-107); Estimated CRCL calculation 40 ml/min; Estimated Glomerular Filt Rate 30; Glucose 134 mg/dL (65-110); Magnesium 2.3 mg/dL (1.6-2.3); Phosphorus 4.9 mg/dL (2.5-4.5); Potassium 3.4 mmol/L (3.4-5.0); Sodium 134 mmol/L (137-145)
[2021-05-23] MEDS: CENTRAL LINE FLUSH 10 ML IV PUSH ×4 (06:10→22:06)
[2021-05-23] MEDS: HEPARIN SODIUM 5,000 UNITS/ML VIAL 5000 UNITS SUB-Q ×3 (06:11→22:06)
[2021-05-23 08:05] LABS: Glucose Point of Care 126 mg/dl (65-105)
[2021-05-23] MEDS: ATORVASTATIN 10 MG TABLET PO (09:55)
[2021-05-23] MEDS: ASPIRIN 325 MG TABLET FEED TUBE (09:55)
[2021-05-23] MEDS: INSULIN GLARGINE (*BKC) 100 UNITS/ML 25 UNITS SUB-Q (09:55)
[2021-05-23] MEDS: PANTOPRAZOLE SODIUM IV 40 MG VIAL IV PUSH (09:56)
--- NOTE | 2021-05-23 09:56 | PCRCNOTE ---
pt very verbaly abusive says he does not want her treatment
[2021-05-23] MEDS: POTASSIUM CHLORIDE 20 MEQ TABLET 40 MEQ PO (11:14)
[2021-05-23 11:39] LABS: Glucose Point of Care 184 mg/dl (65-105)
--- NOTE | 2021-05-23 12:46 | PM.PNNEP ---
Progress Note: A&P Assessment and Plan (1) BOONE (acute kidney injury): Code(s): N17.9 - Acute kidney failure, unspecified Status: Acute Assessment and Plan: slowly improving multifactorial etiology: - contrast exposure (CTA of chest at OSH) - hemodynamic instability - use of diuretics and ARB prior to admission - prerenal factors - component of rhabdomyolysis - cardiac issues - infection (pneumonia) renal ultrasound without obstruction urine electrolytes suggest prerenal azotemia CPK greater than 1600 earlier, normal today. Now off of bicarb drip. Renal function is very slowly improving. Today it is 1.7 (2) Acute respiratory failure with hypoxia: Code(s): J96.01 - Acute respiratory failure with hypoxia Status: Acute Assessment and Plan: presumably due to a combination of pneumonia, pulmonary edema, +/- NSTEMI Now off the ventilator and extubated. She finished her antibiotics. (3) Shock: Code(s): R57.9 - Shock, unspecified Status: Acute Assessment and Plan: resolved (4) NSTEMI (non-ST elevated myocardial infarction): Code(s): I21.4 - Non-ST elevation (NSTEMI) myocardial infarction Status: Acute Assessment and Plan: Cardiology recommendations noted elevated troponins related to acute illness than cardiac event (5) Diabetes: Code(s): E11.9 - Type 2 diabetes mellitus without complications Status: Acute Assessment and Plan: follow accuchecks glycemic control Subjective Date/time seen: 05/23/21 12:46 Interval history: the patient is in a regular bed. Awake. Angry. She feels like she has not been fed in 3 weeks. She says that there is a trans vestite in the group there is nothing wrong with my swallowing. I tried to reassure her that she is getting good care. We discussed her kidney situation but I am not sure how much she got out of it. Exam Narrative: WDWN Female in NAD skin no rash head ncat lungs Bilateral coarse upper airway noise cor reg no rub or gallop abd BS+ nontender and soft ext 1+ edema or cyanosis. Objective Data Vital Signs Vital Signs: Vital Signs - 24 hr 05/22/21 15:13 05/22/21 16:00 05/22/21 18:21 Temperature 35.8 C L Pulse Rate 100 98 100 Respiratory Rate 16 22 H 18 Blood Pressure 119/81 129/72 Pulse Oximetry 97 98 05/22/21 19:55 05/22/21 20:01 05/22/21 22:16 Temperature 36.6 C Pulse Rate 106 H 103 H Respiratory Rate 20 18 Blood Pressure 136/77 Pulse Oximetry 98 98 05/22/21 22:17 05/22/21 22:26 05/23/21 00:45 Temperature 37.7 C H Pulse Rate 106 H 102 H Respiratory Rate 18 22 H Blood Pressure 137/58 L Pulse Oximetry 98 100 05/23/21 00:55 05/23/21 01:55 05/23/21 02:56 Temperature 37.7 C H 36.6 C Pulse Rate 101 H Respiratory Rate 18 Blood Pressure Pulse Oximetry 05/23/21 04:38 05/23/21 08:00 05/23/21 09:40 Temperature 36.6 C 35.6 C L Pulse Rate 94 92 Respiratory Rate 20 18 Blood Pressure 134/64 136/76 Pulse Oximetry 96 94 95 Intake/Output Intake/Output: Intake & Output 05/20/21 05/21/21 05/22/21 05/23/21 23:59 23:59 23:59 23:59 Intake Total 1898 1175 400 500 Output Total 2800 1727 1650 650 [facility] -552 -1250 -150 Meds/Results Medications: Active Medications Generic Name Dose Route Start Last Admin Trade Name Freq PRN Reason Stop Dose Admin Acetaminophen 650 mg 05/23/21 00:48 05/23/21 00:55 Acetaminophen 325 Mg Tablet PO 650 mg Q6H PRN Administration Mild Pain (1-3) or Fever Albuterol 2.5 mg 05/13/21 14:00 05/23/21 09:48 Albuterol Sulfate Neb 2.5 Mg/0.5 Ml Inh INHALATION Not Given Q6HRT [facility] Aspirin 325 mg 05/17/21 13:25 05/23/21 09:55 Aspirin 325 Mg Tablet FEED TUBE 325 mg DAILY@0800 [facility] Administr
[2021-05-23 17:21] LABS: Glucose Point of Care 138 mg/dl (65-105)
--- NOTE | 2021-05-23 18:22 | PM.IMPN ---
Progress Note: A&P Assessment and Plan (1) Acute respiratory failure with hypoxia: Code(s): J96.01 - Acute respiratory failure with hypoxia Status: Acute Assessment and Plan: Pain presented with acute shortness of breath likely related NSTEMI, shock, pulmonary edema, pneumonia -on 05/12/2021: CTA chest at the [facility] in [facility], revealed no pulmonary embolism but right lung consolidation with alveolar septal thickening and air bronchograms prominent throughout the right lung with scattered ground-glass infiltrates in the left lung - Extubated successfully on 05/21/2021 -on 2 L nasal cannula with good O2 sats - Continue bronchodilators -continue diuresis -patient has completed a course of Zosyn. Will repeat cultures if patient remains febrile COVID PCR negative 05/23/21 18:22 patient is 65-year-old female morbidly obese with acute respiratory failure with hypoxia secondary to non-STEMI, shock, pulmonary edema, pneumonia, patient was intubated and treated in ICU, was extubated on 05/21 and transferred out of ICU on 05/22, today patient feeling better, denies any cough shortness of breath fever chills, currently patient is on 1 L nasal cannula, patient is off antibiotic, being diuresed patient acute kidney injury patient is is monitored by Nephrology and will continue to monitor, patient has history of diabetes being treated with Lantus 25 units daily and a sliding scale will continue to monitor, will have a PT OT evaluate the patient and further recommendation to follow. (2) Shock: Code(s): R57.9 - Shock, unspecified Status: Acute Assessment and Plan: RESOLVED Off Levophed Cardiogenic versus septic -patient with bilateral diffuse infiltrates, likely pulmonary edema vs pneumonia - 05/13/2021 Blood cultures negative x2 -05/13/2021: Urine cultures negative -05/13/2021: Sputum cultures negative -off vancomycin now - completed a course of Zosyn (3) NSTEMI (non-ST elevated myocardial infarction): Code(s): I21.4 - Non-ST elevation (NSTEMI) myocardial infarction Status: Acute Assessment and Plan: Patient with elevated troponin, no ST-T changes on the EKGs this morning -chest x-ray shows bilateral diffuse infiltrates likely pulmonary edema -patient started on aspirin, heparin infusion -due to patient being on vasopressors, did not start beta blockers -Appreciate cardiology evaluation recommendation -05/13/2021 echocardiogram: EF 55-60%, and the dimensions are normal. Grade 2 diastolic dysfunction RV systolic function is [id number] reduced mild pulmonary hypertension with RVSP of 37 mmHg. Mild aortic stenosis. -off heparin infusion now (4) Type 2 diabetes mellitus with hyperglycemia: Qualifiers: Diabetes mellitus longterm insulin use: without longterm use Qualified Code(s): E11.65 - Type 2 diabetes mellitus with hyperglycemia Code(s): E11.65 - Type 2 diabetes mellitus with hyperglycemia Status: Acute Assessment and Plan: Patient hyperglycemic history of diabetes, -continue sliding scale insulin and Accu-Cheks -continue Lantus -hemoglobin A1c 6.5 (5) Suspected 2019 novel coronavirus infection: Code(s): Z20.822 - Contact with and (suspected) exposure to COVID-19 Status: Acute Assessment and Plan: SARS-CoV-2 PCR 05/13/2021 at [facility] was negative -will discontinue isolation -rapid COVID test at [facility] -according the patient's , patient and her had tested positive for COVID in August 2020,they both have been vaccinated with Moderna vaccine in December 2020 - (6) BOONE (acute kidney injury): Code(s): N17.9 - Acute kidney failure, unspecified Status: Acute Assessment and Plan: Patient with acute kidney injury creatinine on admission was 0.9, on admission. Creatinine is 2.20 this morning -likely related to hypotension, hypoxia, septi
[2021-05-23 22:06] LABS: Glucose Point of Care 158 mg/dl (65-105)
[2021-05-24] VITALS (13 sets, daily range): BP systolic 138–151; BP diastolic 75–90; PULSE 87–109; RESP 14–20; TEMP 35.9–36.2; O2SAT 92–99
[2021-05-24] MEDS: ACETAMINOPHEN 325 MG TABLET 650 MG PO (02:11)
[2021-05-24] MEDS: IPRATROPIUM BR 0.02% INH SOLN 0.5 MG/2.5 ML VIAL INHALATION ×4 (02:37→23:02)
[2021-05-24] MEDS: ALBUTEROL SULFATE NEB 2.5 MG/0.5 ML INH INHALATION ×4 (02:37→23:02)
[2021-05-24 06:10] LABS: Hematocrit 29.4 % (37.0-47.0); Hemoglobin 9.6 g/dL (12.0-15.0); Mean Corpuscular HGB Conc 32.7 g/dl (32-36); Mean Corpuscular Hemoglobin 30.2 pg (26-34); Mean Corpuscular Volume 92.5 fl (80-100); Mean Platelet Volume 9.9 fl (7.4-10.4); Platelet Count Result 373 k/mm3 (150-375); Red Blood Count 3.18 M/mm3 (4.2-5.4); Red Cell Distribution Width 13.5 % (11.5-14.5)
[2021-05-24] MEDS: HEPARIN SODIUM 5,000 UNITS/ML VIAL 5000 UNITS SUB-Q ×3 (06:14→21:17)
[2021-05-24 07:39] LABS: Glucose Point of Care 144 mg/dl (65-105)
[2021-05-24 08:24] LABS: Alanine Aminotransferase 23 U/L (4-35); Albumin Level 4.1 g/dL (3.5-5.1); Alkaline Phosphatase 143 U/L (38-126); Anion Gap 12 mmol/L (8-16); Aspartate Amino Transferase 40 U/L (14-36); Bilirubin,Total 0.7 mg/dL (0.2-1.3); Blood Urea Nitrogen 36 mg/dL (7-17); Calcium 9.5 mg/dL (8.4-10.2); Carbon Dioxide 24 mmol/L (22-30); Chloride 96 mmol/L (98-107); Estimated CRCL calculation 49 ml/min; Estimated Glomerular Filt Rate 38; Glucose 151 mg/dL (65-110); Magnesium 2.1 mg/dL (1.6-2.3); Phosphorus 4.2 mg/dL (2.5-4.5); Potassium 3.5 mmol/L (3.4-5.0); Sodium 132 mmol/L (137-145)
[2021-05-24] MEDS: ATORVASTATIN 10 MG TABLET PO (08:40)
[2021-05-24] MEDS: ASPIRIN 325 MG TABLET FEED TUBE (08:40)
[2021-05-24] MEDS: POTASSIUM CHLORIDE 20 MEQ TABLET 40 MEQ PO (08:41)
[2021-05-24] MEDS: INSULIN GLARGINE (*BKC) 100 UNITS/ML 25 UNITS SUB-Q (08:41)
[2021-05-24] MEDS: PANTOPRAZOLE SODIUM IV 40 MG VIAL IV PUSH (08:41)
--- NOTE | 2021-05-24 11:53 | PCNFU ---
Nutrition Follow-Up Complete: Inadequate oral intake related to oral intubation as evidenced by NPO status. Goal: Patient to meet estimated nutritional needs. Patient is progressing towards goal. We will continue current goal. Pt current nutrition is DBCC/Soft and bite sized, Level 6. Last recorded weight is 125.5 kg, down from 132 kg Bowel Motility:+BM reported 05/22 Labs Reviewed:Glu 151,Cr 1.4,BUN 36, GFR 38,Na 132 Meds Noted:Lantus,Atrovent,Protonix. Additional Notes: Patient seen today for nutrition follow up. She fed herself this morning, had been assist with meals. Breakfast today consisted of peaches and oatmeal. She refuses diet supplements. Agree with diet orders. Monitoring: Follow up every 5 days.
--- NOTE | 2021-05-24 13:05 | PM.PNNEP ---
Progress Note: A&P Assessment and Plan (1) BOONE (acute kidney injury): Code(s): N17.9 - Acute kidney failure, unspecified Status: Acute Assessment and Plan: slowly improving multifactorial etiology: - contrast exposure (CTA of chest at OSH) - hemodynamic instability - use of diuretics and ARB prior to admission - prerenal factors - component of rhabdomyolysis - cardiac issues - infection (pneumonia) renal ultrasound without obstruction urine electrolytes suggest prerenal azotemia CPK greater than 1600 earlier, normal today. Now off of bicarb drip. Renal function is improving. Today it is 1.4 (2) Acute respiratory failure with hypoxia: Code(s): J96.01 - Acute respiratory failure with hypoxia Status: Acute Assessment and Plan: improved (3) Shock: Code(s): R57.9 - Shock, unspecified Status: Acute Assessment and Plan: resolved (4) NSTEMI (non-ST elevated myocardial infarction): Code(s): I21.4 - Non-ST elevation (NSTEMI) myocardial infarction Status: Acute Assessment and Plan: Cardiology recommendations noted (5) Diabetes: Code(s): E11.9 - Type 2 diabetes mellitus without complications Status: Acute Assessment and Plan: follow accuchecks glycemic control Subjective Date/time seen: 05/24/21 13:05 Interval history: the patient is in a regular bed. Awake. Seems calmer today. No chest pain or shortness of breath Exam Narrative: WDWN Female in NAD skin no rash head ncat lungs Bilateral coarse upper airway noise cor reg no rub or gallop abd BS+ nontender and soft ext 1+ edema or cyanosis. Objective Data Vital Signs Vital Signs: Vital Signs - 24 hr 05/23/21 14:50 05/23/21 14:59 05/23/21 16:00 Temperature 35.8 C L Pulse Rate 100 103 H 93 Respiratory Rate 20 20 18 Blood Pressure 138/77 Pulse Oximetry 95 05/23/21 19:58 05/23/21 20:41 05/23/21 20:45 Temperature Pulse Rate 98 98 Respiratory Rate 20 Blood Pressure Pulse Oximetry 95 94 05/23/21 20:47 05/23/21 21:02 05/24/21 00:00 Temperature 35.6 C L 36.1 C L Pulse Rate 100 97 97 Respiratory Rate 20 20 20 Blood Pressure 148/74 H 140/79 Pulse Oximetry 98 99 05/24/21 02:38 05/24/21 02:45 05/24/21 08:00 Temperature 36.2 C L Pulse Rate 97 96 94 Respiratory Rate 20 20 20 Blood Pressure 138/76 Pulse Oximetry 96 05/24/21 08:40 05/24/21 09:28 05/24/21 09:29 Temperature Pulse Rate 97 Respiratory Rate 20 Blood Pressure Pulse Oximetry 95 92 Intake/Output Intake/Output: Intake & Output 05/21/21 05/22/21 05/23/21 05/24/21 23:59 23:59 23:59 23:59 Intake Total 9760 638 7295 390 Output Total 1727 1650 1550 900 [facility]158 -1250 -500 -510 Meds/Results Medications: Active Medications Generic Name Dose Route Start Last Admin Trade Name Freq PRN Reason Stop Dose Admin Acetaminophen 650 mg 05/23/21 00:48 05/24/21 02:11 Acetaminophen 325 Mg Tablet PO 650 mg Q6H PRN Administration Mild Pain (1-3) or Fever Albuterol 2.5 mg 05/13/21 14:00 05/24/21 09:27 Albuterol Sulfate Neb 2.5 Mg/0.5 Ml Inh INHALATION 2.5 mg Q6HRT JUAN Administration Aspirin 325 mg 05/17/21 13:25 05/24/21 08:40 Aspirin 325 Mg Tablet FEED TUBE 325 mg DAILY@0800 JUAN Administration Atorvastatin Calcium 10 mg 05/13/21 09:00 05/24/21 08:40 Atorvastatin 10 Mg Tablet PO 10 mg DAILY JUAN Administration Dextrose 12.5 gm 05/13/21 23:19 Dextrose 50% 25 Gm/50 Ml Syringe IV PUSH PRN PRN Hypoglycemia Protocol Furosemide 40 mg 05/20/21 17:00 05/21/21 09:28 Furosemide Inj 40 Mg/4 Ml Vial IV PUSH 40 mg BID JUAN Administration Glucagon 1 mg 05/13/21 23:19 Glucagon For Inj 1 Mg Vial IM PRN PRN Hypoglycemi
[2021-05-24 13:10] LABS: Glucose Point of Care 166 mg/dl (65-105)
--- NOTE | 2021-05-24 16:12 | PM.IMPN ---
Progress Note: A&P Assessment and Plan (1) Acute respiratory failure with hypoxia: Code(s): J96.01 - Acute respiratory failure with hypoxia Status: Acute Assessment and Plan: Pain presented with acute shortness of breath likely related NSTEMI, shock, pulmonary edema, pneumonia -on 05/12/2021: CTA chest at the [facility] in [facility], revealed no pulmonary embolism but right lung consolidation with alveolar septal thickening and air bronchograms prominent throughout the right lung with scattered ground-glass infiltrates in the left lung - Extubated successfully on 05/21/2021 -on 2 L nasal cannula with good O2 sats - Continue bronchodilators -continue diuresis -patient has completed a course of Zosyn. Will repeat cultures if patient remains febrile COVID PCR negative 05/24/21 16:12 patient is 65-year-old female morbidly obese with acute respiratory failure with hypoxia secondary to non-STEMI, shock, COVID-19, pulmonary edema, pneumonia, patient was intubated and treated in ICU, was extubated on 05/21 and transferred out of ICU on 05/22, today patient feeling better, denies any cough shortness of breath fever chills, currently patient is on 1 L nasal cannula, patient is off antibiotic, being diuresed patient acute kidney injury patient is is monitored by Nephrology and will continue to monitor, patient has history of diabetes being treated with Lantus 25 units daily and a sliding scale will continue to monitor, will have a PT OT evaluate the patient and further recommendation to follow. 05/24 patient remains clinically stable and insisting to go home however patient is requiring substantial assistance with ADL and ambulation, see denies cough shortness of breath fever or chills, patient remains on 1 L of oxygen at rest, however patient is not exerting herself, patient has completed her antibiotic, will have a PT OT evaluate the patient, patient will benefit going to acute rehab before going home. (2) Shock: Code(s): R57.9 - Shock, unspecified Status: Acute Assessment and Plan: RESOLVED Off Levophed Cardiogenic versus septic -patient with bilateral diffuse infiltrates, likely pulmonary edema vs pneumonia - 05/13/2021 Blood cultures negative x2 -05/13/2021: Urine cultures negative -05/13/2021: Sputum cultures negative -off vancomycin now - completed a course of Zosyn (3) NSTEMI (non-ST elevated myocardial infarction): Code(s): I21.4 - Non-ST elevation (NSTEMI) myocardial infarction Status: Acute Assessment and Plan: Patient with elevated troponin, no ST-T changes on the EKGs this morning -chest x-ray shows bilateral diffuse infiltrates likely pulmonary edema -patient started on aspirin, heparin infusion -due to patient being on vasopressors, did not start beta blockers -Appreciate cardiology evaluation recommendation -05/13/2021 echocardiogram: EF 55-60%, and the dimensions are normal. Grade 2 diastolic dysfunction RV systolic function is [id number] reduced mild pulmonary hypertension with RVSP of 37 mmHg. Mild aortic stenosis. -off heparin infusion now (4) Type 2 diabetes mellitus with hyperglycemia: Qualifiers: Diabetes mellitus usp insulin use: without terminologist use Qualified Code(s): E11.65 - Type 2 diabetes mellitus with hyperglycemia Code(s): E11.65 - Type 2 diabetes mellitus with hyperglycemia Status: Acute Assessment and Plan: Patient hyperglycemic history of diabetes, -continue sliding scale insulin and Accu-Cheks -continue Lantus -hemoglobin A1c 6.5 (5) Suspected 2019 novel coronavirus infection: Code(s): Z20.822 - Contact with and (suspected) exposure to COVID-19 Status: Acute Assessment and Plan: SARS-CoV-2 PCR 05/13/2021 at [facility] was negative -will discontinue isolation -rapid COVID test at [facility] -according the patient's , patient a
[2021-05-24 16:44] LABS: Glucose Point of Care 154 mg/dl (65-105)
[2021-05-24 22:15] LABS: Glucose Point of Care 168 mg/dl (65-105)
[2021-05-25] VITALS (8 sets, daily range): BP systolic 146–153; BP diastolic 74–90; PULSE 87–110; RESP 16–18; TEMP 35.9–36.2; O2SAT 93–100; BMI 11.0
[2021-05-25] MEDS: ALBUTEROL SULFATE NEB 2.5 MG/0.5 ML INH INHALATION ×4 (02:15→19:33)
[2021-05-25] MEDS: IPRATROPIUM BR 0.02% INH SOLN 0.5 MG/2.5 ML VIAL INHALATION ×4 (02:15→19:34)
[2021-05-25] MEDS: HEPARIN SODIUM 5,000 UNITS/ML VIAL 5000 UNITS SUB-Q ×3 (06:03→20:14)
[2021-05-25 06:39] LABS: Estimated CRCL calculation 49 ml/min; Estimated Glomerular Filt Rate 38
[2021-05-25 07:46] LABS: Glucose Point of Care 161 mg/dl (65-105)
[2021-05-25] MEDS: INSULIN GLARGINE (*BKC) 100 UNITS/ML 25 UNITS SUB-Q (09:03)
[2021-05-25] MEDS: ATORVASTATIN 10 MG TABLET PO (09:03)
[2021-05-25] MEDS: PANTOPRAZOLE SODIUM IV 40 MG VIAL IV PUSH (09:04)
--- NOTE | 2021-05-25 10:23 | PCOTNOTE ---
Attempted to see patient this AM for skilled OT session. Upon entry, patient became increasingly upset stating she just wants to go home and needs to talk with her . Patient refused participation in session this date, again stating I just want to go home! Will continue per POC.
[2021-05-25 11:46] LABS: Glucose Point of Care 159 mg/dl (65-105)
--- NOTE | 2021-05-25 12:49 | PM.IMPN ---
Progress Note: A&P Assessment and Plan (1) CAP (community acquired pneumonia): Qualifiers: Laterality: right Lung location: unspecified part of lung Qualified Code(s): J18.9 - Pneumonia, unspecified organism Code(s): J18.9 - Pneumonia, unspecified organism Status: Acute Assessment and Plan: COMPLETED ANTIBIOTICS (VANC/ZOSYN) IN NEED OF REHAB FOR POST ACUTE ILLNESS DEBILITY (2) Type 2 diabetes mellitus with hyperglycemia: Qualifiers: Diabetes mellitus mcfp insulin use: without terminal supervisor use Qualified Code(s): E11.65 - Type 2 diabetes mellitus with hyperglycemia Code(s): E11.65 - Type 2 diabetes mellitus with hyperglycemia Status: Acute Assessment and Plan: CONTINUE SSIO (3) YADIRA (obstructive sleep apnea): Code(s): G47.33 - Obstructive sleep apnea (adult) (pediatric) Status: Acute (4) Acute respiratory failure with hypoxia: Code(s): J96.01 - Acute respiratory failure with hypoxia Status: Acute (5) Post-COVID chronic fatigue: Code(s): R53.82 - Chronic fatigue, unspecified; B94.8 - Sequelae of other specified infectious and parasitic diseases Status: Acute (6) GERD (gastroesophageal reflux disease): Qualifiers: Esophagitis presence: esophagitis presence not specified Qualified Code(s): K21.9 - Gastro-esophageal reflux disease without esophagitis Code(s): K21.9 - Gastro-esophageal reflux disease without esophagitis Status: Acute (7) Cirrhosis of liver: Qualifiers: Hepatic cirrhosis type: unspecified hepatic cirrhosis Ascites presence: without ascites Qualified Code(s): K74.60 - Unspecified cirrhosis of liver Code(s): K74.60 - Unspecified cirrhosis of liver Status: Acute (8) Type 2 myocardial infarction: Code(s): I21.A1 - Myocardial infarction type 2 Status: Acute Assessment and Plan: W/O SX'S CARDIOLOGY SIGNED OFF (9) Chronic depression: Code(s): F32.9 - Major depressive disorder, single episode, unspecified Status: Acute (10) BOONE (acute kidney injury): Code(s): N17.9 - Acute kidney failure, unspecified Status: Acute Assessment and Plan: 05/25 creatinine 1.4 (11) Shock: Code(s): R57.9 - Shock, unspecified Status: Acute Additional Plan RESOLVED Subjective Date/time seen: 05/25/21 12:49 Interval history: 05/25 visit: Weak. Ate well. Spouse at bedside. Wants to go to [facility]. Denied pain. Can't walk or transfer w/o help. No chest pain. BEAUCHAMP. Denied gi/gu c/o. No bleeding. Review of Systems Review of Systems: All systems reviewed & are unremarkable except as noted in HPI and below Exam Narrative: HEENT: PERRL, sclerae nonicteric, pharyngeal mucosa pink and intact NECK: No JVD CHEST: Clear anteriorly. Decreased BS at bases Normal effort. HEART: NL S1/S2, regular, no murmur ABDOMEN: BS+, soft, nontender, no mass, no bruits EXTREMITIES: No cyanosis, edema, or clubbing NEUROLOGIC: CN intact and symmetric to inspection. LE with decr dorsiflexion and plantarflexion, most pronounced on left foot dorsiflexion (2/5) MUSCULOSKELETAL: Tone symmetric, no tremors PSYCH: Alert. Oriented. Objective Data Vital Signs Vital Signs: Vital Signs - 24 hr 05/24/21 13:33 05/24/21 13:42 05/24/21 16:00 Temperature 96.7 F L Pulse Rate 96 92 99 Respiratory Rate 20 18 20 Blood Pressure 139/75 Pulse Oximetry 98 05/24/21 21:12 05/24/21 23:03 05/24/21 23:13 Temperature 97.2 F L Pulse Rate 109 H 87 89 Respiratory Rate 16 14 16 Blood Pressure 151/90 H Pulse Oximetry 95 05/25/21 06:06 05/25/21 08:53 Temperature 97.1 F L Pulse Rate 100 102 H Respiratory Rate 18 18 Blood Pressure 150/74 H Pulse Oximetry 96 93 Intake/Output Intake/Output: Intake & Output 05/22/21 05/23/21 05/24/21 05/25/21 23:59 23:59 23:59 23:59 Intake Total 400 1050 940 Out
--- NOTE | 2021-05-25 13:33 | PCOTNOTE ---
Attempted to see patient for a second time this PM. Patient presents with increased frustration and anger d/t wanting to go home. Patient refused participation in OT treatment. Therapist encouraged patient to rest, relax and we will start fresh again tomorrow. Will continue per POC.
[2021-05-25] MEDS: ASPIRIN 325 MG TABLET PO (14:20)
[2021-05-25 16:48] LABS: Glucose Point of Care 138 mg/dl (65-105)
[2021-05-25] MEDS: OLANZapine 10 MG INJ VIAL 5 MG IM (20:14)
[2021-05-25] MEDS: WATER, STERILE FOR INJECTION 10 ML VIAL XX (20:14)
[2021-05-25 21:40] LABS: Glucose Point of Care 132 mg/dl (65-105)
[2021-05-26] VITALS (9 sets, daily range): BP systolic 112–137; BP diastolic 59–85; PULSE 101–112; RESP 14–18; TEMP 36.3–36.6; O2SAT 95–98
[2021-05-26] MEDS: HEPARIN SODIUM 5,000 UNITS/ML VIAL 5000 UNITS SUB-Q ×3 (06:36→22:55)
[2021-05-26 08:07] LABS: Glucose Point of Care 161 mg/dl (65-105)
[2021-05-26 08:33] LABS: Basophils Absolute Auto 0.1 K/mm3 (0.0-0.1); Basophils Percent Auto 0.5 % (0.2-1.2); Eosinophils Absolute Auto 0.3 K/mm3 (0-0.3); Eosinophils Percent Auto 1.8 % (0-4.4); Hematocrit 31.7 % (37.0-47.0); Hemoglobin 10.2 g/dL (12.0-15.0); Immature Granulocyte Absolute 0.17 K/mm3 (0.00-0.031); Lymphocytes Absolute Auto 1.58 K/mm3 (0.9-3.2); Lymphocytes Percent Auto 9.7 % (18.3-44.2); Mean Corpuscular HGB Conc 32.2 g/dl (32-36); Mean Corpuscular Hemoglobin 29.7 pg (26-34); Mean Corpuscular Volume 92.4 fl (80-100); Mean Platelet Volume 10.1 fl (7.4-10.4); Monocytes Percent Auto 6.1 % (2.6-8.5); Neutrophils Absolute Auto 13.2 K/mm3 (1.3-6.7); Neutrophils Percent Auto 80.9 % (45.5-73.1); Platelet Count Result 420 k/mm3 (150-375); Red Blood Count 3.43 M/mm3 (4.2-5.4); Red Cell Distribution Width 13.6 % (11.5-14.5); White Blood Count 16.3 K/mm3 (4.5-10.0)
--- NOTE | 2021-05-26 09:09 | P.PNNP_ITS ---
Progress Note: A&P Assessment and Plan (1) BOONE (acute kidney injury): Code(s): N17.9 - Acute kidney failure, unspecified Status: Acute Assessment and Plan: * slowly improving * multifactorial etiology: - contrast exposure (CTA of chest at OSH) - hemodynamic instability - use of diuretics and ARB prior to admission - prerenal factors - component of rhabdomyolysis - cardiac issues - infection (pneumonia) * renal ultrasound without obstruction * urine electrolytes suggest prerenal azotemia * CPK greater than 1600 earlier, normal today. Now off of bicarb drip. * Renal function is improving. It was 1.4 the other day. Today's is pending. (2) Acute respiratory failure with hypoxia: Code(s): J96.01 - Acute respiratory failure with hypoxia Status: Acute Assessment and Plan: * improved (3) Shock: Code(s): R57.9 - Shock, unspecified Status: Acute Assessment and Plan: * resolved (4) NSTEMI (non-ST elevated myocardial infarction): Code(s): I21.4 - Non-ST elevation (NSTEMI) myocardial infarction Status: Acute Assessment and Plan: * Cardiology recommendations noted (5) Diabetes: Code(s): E11.9 - Type 2 diabetes mellitus without complications Status: Acute Assessment and Plan: * follow accuchecks * glycemic control Subjective Date/time seen: 05/26/21 09:09 Interval history: the patient is comfortable. Finishing her breakfast. She slept okay last night. Looking forward to moving to rehab Exam Narrative: WDWN Female in NAD skin no rash or subcu nodules head ncat lungs Bilateral coarse upper airway noise cor reg no rub or gallop abd BS+ nontender and soft ext 1+ edema or cyanosis. Objective Data Vital Signs Vital Signs: Vital Signs - 24 hr 05/25/21 14:03 05/25/21 19:37 05/25/21 19:41 Temperature 35.9 C L Pulse Rate 100 104 H 96 Respiratory Rate 18 16 16 Blood Pressure 153/78 H Pulse Oximetry 97 05/25/21 20:00 05/26/21 06:44 Temperature 36.0 C L 36.6 C Pulse Rate 110 H 112 H Respiratory Rate 18 16 Blood Pressure 146/90 H 137/72 Pulse Oximetry 100 96 Intake/Output Intake/Output: Intake & Output 05/23/21 05/24/21 05/25/21 05/26/21 23:59 23:59 23:59 23:59 Intake Total 1050 940 360 Output Total 6070 6347 800 871 [place] -500 -1160 -440 -875 Meds/Results Medications: Active Medications Generic Name Dose Route Start Last Admin Trade Name Freq PRN Reason Stop Dose Admin Acetaminophen 650 mg 05/23/21 00:48 05/24/21 02:11 Acetaminophen 325 Mg Tablet PO 650 mg Q6H PRN Administration Mild Pain (1-3) or Fever Albuterol 2.5 mg 05/13/21 14:00 05/26/21 01:18 Albuterol Sulfate Neb 2.5 Mg/0.5 Ml Inh INHALATION Not Given Q6HRT [facility] Aspirin 325 mg 05/25/21 08:05 05/25/21 14:20 Aspirin 325 Mg Tablet PO 325 mg DAILY@0800 [facility] Administration Atorvastatin Calcium 10 mg 05/13/21 09:00 05/25/21 09:03 Atorvastatin 10 Mg Tablet PO 10 mg DAILY [facility] Administ
--- NOTE | 2021-05-26 09:09 | PM.PNNEP ---
Progress Note: A&P Assessment and Plan (1) BOONE (acute kidney injury): Code(s): N17.9 - Acute kidney failure, unspecified Status: Acute Assessment and Plan: slowly improving multifactorial etiology: - contrast exposure (CTA of chest at OSH) - hemodynamic instability - use of diuretics and ARB prior to admission - prerenal factors - component of rhabdomyolysis - cardiac issues - infection (pneumonia) renal ultrasound without obstruction urine electrolytes suggest prerenal azotemia CPK greater than 1600 earlier, normal today. Now off of bicarb drip. Renal function is improving. It was 1.4 the other day. Today's is pending. (2) Acute respiratory failure with hypoxia: Code(s): J96.01 - Acute respiratory failure with hypoxia Status: Acute Assessment and Plan: improved (3) Shock: Code(s): R57.9 - Shock, unspecified Status: Acute Assessment and Plan: resolved (4) NSTEMI (non-ST elevated myocardial infarction): Code(s): I21.4 - Non-ST elevation (NSTEMI) myocardial infarction Status: Acute Assessment and Plan: Cardiology recommendations noted (5) Diabetes: Code(s): E11.9 - Type 2 diabetes mellitus without complications Status: Acute Assessment and Plan: follow accuchecks glycemic control Subjective Date/time seen: 05/26/21 09:09 Interval history: the patient is comfortable. Finishing her breakfast. She slept okay last night. Looking forward to moving to rehab Exam Narrative: WDWN Female in NAD skin no rash or subcu nodules head ncat lungs Bilateral coarse upper airway noise cor reg no rub or gallop abd BS+ nontender and soft ext 1+ edema or cyanosis. Objective Data Vital Signs Vital Signs: Vital Signs - 24 hr 05/25/21 14:03 05/25/21 19:37 05/25/21 19:41 Temperature 35.9 C L Pulse Rate 100 104 H 96 Respiratory Rate 18 16 16 Blood Pressure 153/78 H Pulse Oximetry 97 05/25/21 20:00 05/26/21 06:44 Temperature 36.0 C L 36.6 C Pulse Rate 110 H 112 H Respiratory Rate 18 16 Blood Pressure 146/90 H 137/72 Pulse Oximetry 100 96 Intake/Output Intake/Output: Intake & Output 05/23/21 05/24/21 05/25/21 05/26/21 23:59 23:59 23:59 23:59 Intake Total 1050 940 360 Output Total 6348 1434 067 875 Iuqtvnl -914 -1160 -440 -875 Meds/Results Medications: Active Medications Generic Name Dose Route Start Last Admin Trade Name Simona PRN Reason Stop Dose Admin Acetaminophen 650 mg 05/23/21 00:48 05/24/21 02:11 Acetaminophen 325 Mg Tablet PO 650 mg Q6H PRN Administration Mild Pain (1-3) or Fever Albuterol 2.5 mg 05/13/21 14:00 05/26/21 01:18 Albuterol Sulfate Neb 2.5 Mg/0.5 Ml Inh INHALATION Not Given Q6HRT JUAN Aspirin 325 mg 05/25/21 08:05 05/25/21 14:20 Aspirin 325 Mg Tablet PO 325 mg DAILY@0800 JUAN Administration Atorvastatin Calcium 10 mg 05/13/21 09:00 05/25/21 09:03 Atorvastatin 10 Mg Tablet PO 10 mg DAILY JUAN Administration Dextrose 12.5 gm 05/13/21 23:19 Dextrose 50% 25 Gm/50 Ml Syringe IV PUSH PRN PRN Hypoglycemia Protocol Glucagon 1 mg 05/13/21 23:19 Glucagon For Inj 1 Mg Vial IM PRN PRN Hypoglycemia Protocol Glucose 15 gm 05/13/21 23:19 Glucose Oral Gel 15 Gm Of Glucse In 37.5 Gm Tube PO PRN PRN Hypoglycemia Protocol Heparin Sodium (Porcine) 5,000 units 05/16/21 14:00 05/26/21 06:36 Heparin Sodium 5,000 Units/Ml Vial SUB-Q 5,000 units Q8HR JUAN Administration Dextrose 1,000 mls @ 100 mls/hr 05/13/21 23:19 Dextrose 5% 1,000 Ml IVPB PRN PRN Hypoglycemia Protocol Insulin Aspart 4 - 8 units 05/22/21 17:00 05/26/21 08:49 Insulin Aspart (*Bkc) 100 Units/Ml SUB-Q Not Given TIDWM JUAN Protocol
[2021-05-26] MEDS: ASPIRIN 325 MG TABLET PO (09:19)
[2021-05-26] MEDS: ATORVASTATIN 10 MG TABLET PO (09:20)
[2021-05-26] MEDS: INSULIN GLARGINE (*BKC) 100 UNITS/ML 25 UNITS SUB-Q (09:21)
[2021-05-26] MEDS: IPRATROPIUM BR 0.02% INH SOLN 0.5 MG/2.5 ML VIAL INHALATION ×3 (09:41→20:21)
[2021-05-26] MEDS: ALBUTEROL SULFATE NEB 2.5 MG/0.5 ML INH INHALATION ×3 (09:41→20:21)
[2021-05-26 09:46] LABS: Add Urine Microscopic? YES; Appearance Urine Clear (Clear); Bilirubin Urine Negative (Negative); Blood Urine 1+ (Negative); Color Urine Yellow (Yellow); Glucose Urine UA Negative (Negative); Ketones Urine Negative (Negative); Leukocyte Esterase Ur Trace LEU/UL (Negative); Mucus Urine Rare /lpf; Nitrate Urine Negative (Negative); Protein Urine 1+ mg/dL (Negative); RBC Urine 0-2 /hpf (0-2); Specific Grav Ur 1.018 (1.001-1.035); Squamous Epithelial Cell Urine Rare /hpf (Few); Urobilinogen Urine Negative mg/dL (<2.0)
[2021-05-26 10:10] LABS: Alanine Aminotransferase 25 U/L (4-35); Albumin Level 4.1 g/dL (3.5-5.1); Alkaline Phosphatase 136 U/L (38-126); Anion Gap 13 mmol/L (8-16); Aspartate Amino Transferase 52 U/L (14-36); Bilirubin,Total 0.8 mg/dL (0.2-1.3); Blood Urea Nitrogen 33 mg/dL (7-17); Calcium 9.9 mg/dL (8.4-10.2); Carbon Dioxide 22 mmol/L (22-30); Chloride 99 mmol/L (98-107); Estimated CRCL calculation 52 ml/min; Estimated Glomerular Filt Rate 41; Glucose 160 mg/dL (65-110); Magnesium 1.9 mg/dL (1.6-2.3); Phosphorus 4.4 mg/dL (2.5-4.5); Potassium 4.1 mmol/L (3.4-5.0); Sodium 134 mmol/L (137-145)
[2021-05-26 10:51] LABS: Free T4 Free Thyroxine Reflex 1.06 ng/dL (0.78-2.19)
[2021-05-26 11:16] LABS: Folic Acid > 20.0 ng/mL (2.76->20)
[2021-05-26 11:38] LABS: Total Triiodothyronine (T3) 1.18 NG/ML (0.97-1.69)
--- NOTE | 2021-05-26 11:57 | PM.IMPN ---
Progress Note: A&P Assessment and Plan (1) CAP (community acquired pneumonia): Qualifiers: Laterality: right Lung location: unspecified part of lung Qualified Code(s): J18.9 - Pneumonia, unspecified organism Code(s): J18.9 - Pneumonia, unspecified organism Status: Acute Assessment and Plan: COMPLETED ANTIBIOTICS (VANC/ZOSYN) IN NEED OF REHAB FOR POST ACUTE ILLNESS DEBILITY (2) Type 2 diabetes mellitus with hyperglycemia: Qualifiers: Diabetes mellitus long-term insulin use: without superintendent marine oil terminal use Qualified Code(s): E11.65 - Type 2 diabetes mellitus with hyperglycemia Code(s): E11.65 - Type 2 diabetes mellitus with hyperglycemia Status: Acute Assessment and Plan: CONTINUE SSIO (3) YADIRA (obstructive sleep apnea): Code(s): G47.33 - Obstructive sleep apnea (adult) (pediatric) Status: Acute (4) Acute respiratory failure with hypoxia: Code(s): J96.01 - Acute respiratory failure with hypoxia Status: Acute (5) Post-COVID chronic fatigue: Code(s): R53.82 - Chronic fatigue, unspecified; B94.8 - Sequelae of other specified infectious and parasitic diseases Status: Acute (6) GERD (gastroesophageal reflux disease): Qualifiers: Esophagitis presence: esophagitis presence not specified Qualified Code(s): K21.9 - Gastro-esophageal reflux disease without esophagitis Code(s): K21.9 - Gastro-esophageal reflux disease without esophagitis Status: Acute (7) Cirrhosis of liver: Qualifiers: Hepatic cirrhosis type: unspecified hepatic cirrhosis Ascites presence: without ascites Qualified Code(s): K74.60 - Unspecified cirrhosis of liver Code(s): K74.60 - Unspecified cirrhosis of liver Status: Acute (8) Type 2 myocardial infarction: Code(s): I21.A1 - Myocardial infarction type 2 Status: Acute Assessment and Plan: W/O SX'S CARDIOLOGY SIGNED OFF (9) Chronic depression: Code(s): F32.9 - Major depressive disorder, single episode, unspecified Status: Acute (10) BOONE (acute kidney injury): Code(s): N17.9 - Acute kidney failure, unspecified Status: Acute Assessment and Plan: 05/25 creatinine 1.4 (11) Shock: Code(s): R57.9 - Shock, unspecified Status: Acute Subjective Date/time seen: 05/26/21 11:57 Interval history: 05/26 visit: Weak. Unable to lift left leg today. Mentions she talked to her friend her from COVID-19. Agitated and confused episode 05/25 PM, better after 5mg Zyprexa IM. Ate well. Spouse at bedside. Still wants to go to [facility]. Denied pain. Can't walk or transfer w/o help. No chest pain. BEAUCHAMP. Denied gi/gu c/o. No bleeding. Review of Systems Review of Systems: All systems reviewed & are unremarkable except as noted in HPI and below Exam Narrative: HEENT: PERRL, sclerae nonicteric, pharyngeal mucosa pink and intact NECK: No JVD CHEST: Clear anteriorly. Decreased BS at bases Normal effort. HEART: NL S1/S2, regular, no murmur ABDOMEN: BS+, soft, nontender, no mass, no bruits EXTREMITIES: No cyanosis, edema, or clubbing NEUROLOGIC: CN intact and symmetric to inspection. LE with decr dorsiflexion and plantarflexion, most pronounced on left foot dorsiflexion (1/5), Left quad strength 2/5 MUSCULOSKELETAL: Tone symmetric, no tremors PSYCH: Alert. Oriented. Objective Data Vital Signs Vital Signs: Vital Signs - 24 hr 05/25/21 14:03 05/25/21 19:37 05/25/21 19:41 Temperature 96.7 F L Pulse Rate 100 104 H 96 Respiratory Rate 18 16 16 Blood Pressure 153/78 H Pulse Oximetry 97 05/25/21 20:00 05/26/21 06:44 05/26/21 09:45 Temperature 96.8 F L 97.9 F Pulse Rate 110 H 112 H 107 H Respiratory Rate 18 16 16 Blood Pressure 146/90 H 137/72 Pulse Oximetry 100 96 96 05/26/21 09:55 Temperature Pulse Rate 102 H Respiratory Rate 16 Blood Pressure Pulse Oximetry 96
--- NOTE | 2021-05-26 12:31 | PC.NURSE ---
pt down to CT
[2021-05-26 12:42] LABS: Glucose Point of Care 151 mg/dl (65-105)
--- NOTE | 2021-05-26 13:03 | PC.NURSE ---
pt back from CT
[2021-05-26] MEDS: PANTOPRAZOLE 40 MG TABLET PO (14:43)
[2021-05-26 17:18] LABS: Glucose Point of Care 126 mg/dl (65-105)
[2021-05-26 21:24] LABS: Glucose Point of Care 235 mg/dl (65-105)
[2021-05-27] VITALS (11 sets, daily range): BP systolic 114–143; BP diastolic 64–71; PULSE 85–108; RESP 16–22; TEMP 35.9–36.9; O2SAT 95–96; BMI 10.0
[2021-05-27] MEDS: IPRATROPIUM BR 0.02% INH SOLN 0.5 MG/2.5 ML VIAL INHALATION ×4 (03:55→20:35)
[2021-05-27] MEDS: ALBUTEROL SULFATE NEB 2.5 MG/0.5 ML INH INHALATION ×4 (03:55→20:35)
[2021-05-27 06:31] LABS: Anion Gap 12 mmol/L (8-16); Blood Urea Nitrogen 36 mg/dL (7-17); Calcium 9.4 mg/dL (8.4-10.2); Carbon Dioxide 22 mmol/L (22-30); Chloride 101 mmol/L (98-107); Estimated CRCL calculation 56 ml/min; Estimated Glomerular Filt Rate 45; Glucose 154 mg/dL (65-110); Phosphorus 4.7 mg/dL (2.5-4.5); Sodium 135 mmol/L (137-145)
[2021-05-27] MEDS: HEPARIN SODIUM 5,000 UNITS/ML VIAL 5000 UNITS SUB-Q ×3 (06:39→22:09)
[2021-05-27 07:27] LABS: Glucose Point of Care 134 mg/dl (65-105)
[2021-05-27] MEDS: INSULIN GLARGINE (*BKC) 100 UNITS/ML 25 UNITS SUB-Q (09:52)
[2021-05-27] MEDS: ASPIRIN 325 MG TABLET PO (10:01)
[2021-05-27] MEDS: ATORVASTATIN 10 MG TABLET PO (10:01)
[2021-05-27] MEDS: PANTOPRAZOLE 40 MG TABLET PO (10:01)
[2021-05-27] MEDS: ACETAMINOPHEN 325 MG TABLET 650 MG PO ×2 (10:07→22:09)
--- NOTE | 2021-05-27 12:39 | PM.IMPN ---
Progress Note: A&P Assessment and Plan (1) CAP (community acquired pneumonia): Qualifiers: Laterality: right Lung location: unspecified part of lung Qualified Code(s): J18.9 - Pneumonia, unspecified organism Code(s): J18.9 - Pneumonia, unspecified organism Status: Acute Assessment and Plan: COMPLETED ANTIBIOTICS (VANC/ZOSYN) IN NEED OF REHAB FOR POST ACUTE ILLNESS DEBILITY (2) Type 2 diabetes mellitus with hyperglycemia: Qualifiers: Diabetes mellitus custodial insulin use: without tank terminal gauger use Qualified Code(s): E11.65 - Type 2 diabetes mellitus with hyperglycemia Code(s): E11.65 - Type 2 diabetes mellitus with hyperglycemia Status: Acute Assessment and Plan: CONTINUE SSI (3) YADIRA (obstructive sleep apnea): Code(s): G47.33 - Obstructive sleep apnea (adult) (pediatric) Status: Acute (4) Acute respiratory failure with hypoxia: Code(s): J96.01 - Acute respiratory failure with hypoxia Status: Acute (5) Post-COVID chronic fatigue: Code(s): R53.82 - Chronic fatigue, unspecified; B94.8 - Sequelae of other specified infectious and parasitic diseases Status: Acute (6) GERD (gastroesophageal reflux disease): Qualifiers: Esophagitis presence: esophagitis presence not specified Qualified Code(s): K21.9 - Gastro-esophageal reflux disease without esophagitis Code(s): K21.9 - Gastro-esophageal reflux disease without esophagitis Status: Acute (7) Cirrhosis of liver: Qualifiers: Hepatic cirrhosis type: unspecified hepatic cirrhosis Ascites presence: without ascites Qualified Code(s): K74.60 - Unspecified cirrhosis of liver Code(s): K74.60 - Unspecified cirrhosis of liver Status: Acute (8) Type 2 myocardial infarction: Code(s): I21.A1 - Myocardial infarction type 2 Status: Acute Assessment and Plan: W/O SX'S CARDIOLOGY SIGNED OFF (9) Chronic depression: Code(s): F32.9 - Major depressive disorder, single episode, unspecified Status: Acute (10) BOONE (acute kidney injury): Code(s): N17.9 - Acute kidney failure, unspecified Status: Acute Assessment and Plan: 05/25 creatinine 1.4, 05/26 1.3, 05/27 1.2 (11) Shock: Code(s): R57.9 - Shock, unspecified Status: Acute Subjective Date/time seen: 05/27/21 12:39 Interval history: 05/06 visit: Weak. Left leg a little stronger today. Ate well. Tolerated PT/OT. Awaiting evaluation from SNF in [place], [place] and ins approval. Denied pain. Can't walk or transfer w/o help. No chest pain. BEAUCHAMP. Denied gi/gu c/o. No bleeding. Review of Systems Review of Systems: All systems reviewed & are unremarkable except as noted in HPI and below Exam Narrative: HEENT: PERRL, sclerae nonicteric, pharyngeal mucosa pink and intact NECK: No JVD CHEST: Clear anteriorly. Decreased BS at bases Normal effort. HEART: NL S1/S2, regular, no murmur ABDOMEN: BS+, soft, nontender, no mass, no bruits EXTREMITIES: No cyanosis, edema, or clubbing NEUROLOGIC: CN intact and symmetric to inspection. LE with decr dorsiflexion and plantarflexion, most pronounced on left foot dorsiflexion (1/5), Left quad strength 2+/5 MUSCULOSKELETAL: Tone symmetric, no tremors PSYCH: Alert. Oriented. Objective Data Vital Signs Vital Signs: Vital Signs - 24 hr 05/26/21 14:00 05/26/21 15:00 05/26/21 15:10 Temperature 97.4 F L Pulse Rate 104 H 101 H 105 H Respiratory Rate 18 16 16 Blood Pressure 124/85 Pulse Oximetry 98 05/26/21 19:34 05/26/21 20:23 05/26/21 20:46 Temperature 97.3 F L Pulse Rate 104 H 104 H 101 H Respiratory Rate 18 16 14 Blood Pressure 112/59 L Pulse Oximetry 95 05/27/21 03:56 05/27/21 04:31 05/27/21 08:23 Temperature 98.4 F Pulse Rate 97 108 H 90 Respiratory Rate 16 16 16 Blood Pressure 130/71 Pulse Oximetry 96 05/27/21 08:26 05/27/21 08:31 Temperature Pulse
[2021-05-27 13:40] LABS: Glucose Point of Care 148 mg/dl (65-105)
--- NOTE | 2021-05-27 15:32 | PM.PNNEP ---
Progress Note: A&P Assessment and Plan (1) BOONE (acute kidney injury): Code(s): N17.9 - Acute kidney failure, unspecified Status: Acute Assessment and Plan: slowly improving multifactorial etiology: - contrast exposure (CTA of chest at OSH) - hemodynamic instability - use of diuretics and ARB prior to admission - prerenal factors - component of rhabdomyolysis - cardiac issues - infection (pneumonia) renal ultrasound without obstruction urine electrolytes suggest prerenal azotemia (2) Acute respiratory failure with hypoxia: Code(s): J96.01 - Acute respiratory failure with hypoxia Status: Acute Assessment and Plan: improved (3) Shock: Code(s): R57.9 - Shock, unspecified Status: Acute Assessment and Plan: resolved (4) NSTEMI (non-ST elevated myocardial infarction): Code(s): I21.4 - Non-ST elevation (NSTEMI) myocardial infarction Status: Acute Assessment and Plan: Cardiology recommendations noted (5) Diabetes: Code(s): E11.9 - Type 2 diabetes mellitus without complications Status: Acute Assessment and Plan: follow accuchecks glycemic control Will continue to follow from a distance. Subjective Date/time seen: 05/27/21 15:32 Appears to be doing significantly better since I last saw her almost a week ago; still quite weak but working with PT/OT as tolerated but will likely need acute rehab on discharge; no acute issues/events overnight or earlier this AM. Exam Narrative: General: WD/WN female in NAD Heart: normal S1 and S2; no rub Lungs: coarse breath sounds Abdomen: soft, nontender, nondistended, positive bowel sounds Extremities: no cyanosis or clubbing; trace - 1+ edema Skin: warm and dry Objective Data Vital Signs Vital Signs: Vital Signs Temp Pulse Resp BP Pulse Ox 05/27/21 14:49 92 16 05/27/21 14:42 85 16 05/27/21 14:00 35.9 C L 96 16 114/64 96 05/27/21 08:31 94 16 05/27/21 08:26 95 05/27/21 08:23 90 16 05/27/21 04:31 36.9 C 108 H 16 130/71 96 05/27/21 03:56 97 16 05/26/21 20:46 101 H 14 05/26/21 20:23 104 H 16 05/26/21 19:34 36.3 C L 104 H 18 112/59 L 95 Intake/Output Intake/Output: Intake & Output 05/24/21 05/25/21 05/26/21 05/27/21 23:59 23:59 23:59 23:59 Intake Total 940 360 180 625 Output Total 2100 800 1375 1625 Balance -1160 -440 -1195 -1000 Meds/Results Medications: Active Medications Generic Name Dose Route Start Last Admin Trade Name Joseq PRN Reason Stop Dose Admin Acetaminophen 650 mg 05/23/21 00:48 05/27/21 10:07 Acetaminophen 325 Mg Tablet PO 650 mg Q6H PRN Administration Mild Pain (1-3) or Fever Albuterol 2.5 mg 05/13/21 14:00 05/27/21 14:42 Albuterol Sulfate Neb 2.5 Mg/0.5 Ml Inh INHALATION 2.5 mg Q6HRT JUAN Administration Aspirin 325 mg 05/25/21 08:05 05/27/21 10:01 Aspirin 325 Mg Tablet PO 325 mg DAILY@0800 JUAN Administration Atorvastatin Calcium 10 mg 05/13/21 09:00 05/27/21 10:01 Atorvastatin 10 Mg Tablet PO 10 mg DAILY JUAN Administration Dextrose 12.5 gm 05/13/21 23:19 Dextrose 50% 25 Gm/50 Ml Syringe IV PUSH PRN PRN Hypoglycemia Protocol Glucagon 1 mg 05/13/21 23:19 Glucagon For Inj 1 Mg Vial IM PRN PRN Hypoglycemia Protocol Glucose 15 gm 05/13/21 23:19 Glucose Oral Gel 15 Gm Of Glucse In 37.5 Gm Tube PO PRN PRN Hypoglycemia Protocol Heparin Sodium (Porcine) 5,000 units 05/16/21 14:00 05/27/21 14:54 Heparin Sodium 5,000 Units/Ml Vial SUB-Q 5,000 units Q8HR JUAN Administration Dextrose 1,000 mls @ 100 mls/hr 05/13/21 23:19 Dextrose 5% 1,000 Ml IVPB PRN PRN Hypoglycemia Protocol Insulin Aspart 4 - 8 units 05/22/21 17:00 08
[2021-05-27 16:42] LABS: Glucose Point of Care 137 mg/dl (65-105)
[2021-05-27 22:28] LABS: Glucose Point of Care 159 mg/dl (65-105)
[2021-05-28] VITALS (9 sets, daily range): BP systolic 125–133; BP diastolic 65–72; PULSE 88–101; RESP 16–20; TEMP 36.1–36.3; O2SAT 91–99
[2021-05-28] MEDS: HEPARIN SODIUM 5,000 UNITS/ML VIAL 5000 UNITS SUB-Q ×3 (06:30→21:04)
[2021-05-28 07:43] LABS: Glucose Point of Care 141 mg/dl (65-105)
[2021-05-28] MEDS: IPRATROPIUM BR 0.02% INH SOLN 0.5 MG/2.5 ML VIAL INHALATION ×3 (08:39→20:22)
[2021-05-28] MEDS: ALBUTEROL SULFATE NEB 2.5 MG/0.5 ML INH INHALATION ×3 (08:39→20:22)
[2021-05-28] MEDS: ASPIRIN 325 MG TABLET PO (09:09)
[2021-05-28] MEDS: ATORVASTATIN 10 MG TABLET PO (09:09)
[2021-05-28] MEDS: PANTOPRAZOLE 40 MG TABLET PO (09:09)
[2021-05-28] MEDS: INSULIN GLARGINE (*BKC) 100 UNITS/ML 25 UNITS SUB-Q (09:10)
--- NOTE | 2021-05-28 10:12 | PM.DS ---
DS: Discharge Diagnosis Discharge Diagnosis (1) CAP (community acquired pneumonia): Qualifiers: Laterality: right Lung location: unspecified part of lung Qualified Code(s): J18.9 - Pneumonia, unspecified organism Code(s): J18.9 - Pneumonia, unspecified organism Status: Acute Assessment and Plan: COMPLETED ANTIBIOTICS (VANC/ZOSYN) IN NEED OF REHAB FOR POST ACUTE ILLNESS DEBILITY (2) Type 2 diabetes mellitus with hyperglycemia: Qualifiers: Diabetes mellitus shelter insulin use: without shelter use Qualified Code(s): E11.65 - Type 2 diabetes mellitus with hyperglycemia Code(s): E11.65 - Type 2 diabetes mellitus with hyperglycemia Status: Acute Assessment and Plan: CONTINUE SSI (3) YADIRA (obstructive sleep apnea): Code(s): G47.33 - Obstructive sleep apnea (adult) (pediatric) Status: Acute (4) Acute respiratory failure with hypoxia: Code(s): J96.01 - Acute respiratory failure with hypoxia Status: Acute (5) Post-COVID chronic fatigue: Code(s): R53.82 - Chronic fatigue, unspecified; B94.8 - Sequelae of other specified infectious and parasitic diseases Status: Acute (6) GERD (gastroesophageal reflux disease): Qualifiers: Esophagitis presence: esophagitis presence not specified Qualified Code(s): K21.9 - Gastro-esophageal reflux disease without esophagitis Code(s): K21.9 - Gastro-esophageal reflux disease without esophagitis Status: Acute (7) Cirrhosis of liver: Qualifiers: Hepatic cirrhosis type: unspecified hepatic cirrhosis Ascites presence: without ascites Qualified Code(s): K74.60 - Unspecified cirrhosis of liver Code(s): K74.60 - Unspecified cirrhosis of liver Status: Acute (8) Type 2 myocardial infarction: Code(s): I21.A1 - Myocardial infarction type 2 Status: Acute Assessment and Plan: W/O SX'S CARDIOLOGY SIGNED OFF (9) Chronic depression: Code(s): F32.9 - Major depressive disorder, single episode, unspecified Status: Acute (10) BOONE (acute kidney injury): Code(s): N17.9 - Acute kidney failure, unspecified Status: Acute Assessment and Plan: 05/25 creatinine 1.4, 05/26 1.3, 05/27 1.2 (11) Shock: Code(s): R57.9 - Shock, unspecified Status: Acute DS: Summary Time Spent with Patient Time attestation: Total time spent providing and/or coordinating discharge services: Exam Narrative: HEENT: PERRL, sclerae nonicteric, pharyngeal mucosa pink and intact NECK: No JVD CHEST: Clear anteriorly. Decreased BS at bases Normal effort. HEART: NL S1/S2, regular, no murmur ABDOMEN: BS+, soft, nontender, no mass, no bruits EXTREMITIES: No cyanosis, edema, or clubbing NEUROLOGIC: CN intact and symmetric to inspection. LE with decr dorsiflexion and plantarflexion, most pronounced on left foot dorsiflexion (1/5), Left quad strength 2+/5 MUSCULOSKELETAL: Tone symmetric, no tremors PSYCH: Alert. Oriented. DS: Data Data Completed and Pending Labs on day of discharge: Labs from last 24 hours 05/28/21 05/27/21 05/27/21 07:41 22:00 16:39 POC Capillary Glucose 141 H 159 H 137 H 05/27/21 13:36 POC Capillary Glucose 148 H Preliminary micro results at discharge 05/24/21 09:17 Blood Culture - Preliminary Blood 05/24/21 09:16 Blood Culture - Preliminary Blood Discharge Plan Discharge Attending physician on discharge: Mikhail Darnell Consulting providers: Sterling Davis ; Joanne Chappell Discharging Clinician: Rene Green Patient Disposition: Home, Self-Care Activity: no driving and as tolerated Diet: as tolerated Patient Instructions: How to Stop Smoking (DC), Weakness (DC), Hypoxia (GEN), Pneumonia (DC), Acute Respiratory Failure (GEN) Stand Alone Forms: General Discharge Information Follow-up/Referrals: Denilson Anderson [Other] - 1 Week (See PCP or S
[2021-05-28 12:36] LABS: Glucose Point of Care 144 mg/dl (65-105)
--- NOTE | 2021-05-28 13:54 | PM.IMPN ---
Progress Note: A&P Assessment and Plan (1) CAP (community acquired pneumonia): Qualifiers: Laterality: right Lung location: unspecified part of lung Qualified Code(s): J18.9 - Pneumonia, unspecified organism Code(s): J18.9 - Pneumonia, unspecified organism Status: Acute Assessment and Plan: COMPLETED ANTIBIOTICS (VANC/ZOSYN) IN NEED OF REHAB FOR POST ACUTE ILLNESS DEBILITY (2) Type 2 diabetes mellitus with hyperglycemia: Qualifiers: Diabetes mellitus [facility] insulin use: without terminal press operator use Qualified Code(s): E11.65 - Type 2 diabetes mellitus with hyperglycemia Code(s): E11.65 - Type 2 diabetes mellitus with hyperglycemia Status: Acute Assessment and Plan: CONTINUE SSI (3) YADIRA (obstructive sleep apnea): Code(s): G47.33 - Obstructive sleep apnea (adult) (pediatric) Status: Acute (4) Acute respiratory failure with hypoxia: Code(s): J96.01 - Acute respiratory failure with hypoxia Status: Acute Assessment and Plan: RESOLVED (5) Post-COVID chronic fatigue: Code(s): R53.82 - Chronic fatigue, unspecified; B94.8 - Sequelae of other specified infectious and parasitic diseases Status: Acute (6) GERD (gastroesophageal reflux disease): Qualifiers: Esophagitis presence: esophagitis presence not specified Qualified Code(s): K21.9 - Gastro-esophageal reflux disease without esophagitis Code(s): K21.9 - Gastro-esophageal reflux disease without esophagitis Status: Acute (7) Cirrhosis of liver: Qualifiers: Ascites presence: without ascites Hepatic cirrhosis type: unspecified hepatic cirrhosis Qualified Code(s): K74.60 - Unspecified cirrhosis of liver Code(s): K74.60 - Unspecified cirrhosis of liver Status: Acute (8) Type 2 myocardial infarction: Code(s): I21.A1 - Myocardial infarction type 2 Status: Acute Assessment and Plan: W/O SX'S CARDIOLOGY SIGNED OFF (9) Chronic depression: Code(s): F32.9 - Major depressive disorder, single episode, unspecified Status: Acute (10) BOONE (acute kidney injury): Code(s): N17.9 - Acute kidney failure, unspecified Status: Acute Assessment and Plan: 05/25 creatinine 1.4, 05/26 1.3, 05/27 1.2, 05/28 1.2 (11) Shock: Code(s): R57.9 - Shock, unspecified Status: Acute Subjective Date/time seen: 05/28/21 13:54 Interval history: 05/28 visit: Weak. Left leg a little stronger today. Ate well. Tolerated PT/OT. Awaiting evaluation from SNF in [place], [place] and ins approval. Denied pain. Can't walk or transfer w/o help. No chest pain. BEAUCHAMP. Denied gi/gu c/o. No bleeding. Review of Systems Review of Systems: All systems reviewed & are unremarkable except as noted in HPI and below Exam Narrative: HEENT: PERRL, sclerae nonicteric, pharyngeal mucosa pink and intact NECK: No JVD CHEST: Clear anteriorly. Decreased BS at bases Normal effort. HEART: NL S1/S2, regular, no murmur ABDOMEN: BS+, soft, nontender, no mass, no bruits EXTREMITIES: No cyanosis, edema, or clubbing NEUROLOGIC: CN intact and symmetric to inspection. LE with decr dorsiflexion and plantarflexion, most pronounced on left foot dorsiflexion (1/5), Left quad strength 3/5 MUSCULOSKELETAL: Tone symmetric, no tremors PSYCH: Alert. Oriented. Objective Data Vital Signs Vital Signs: Vital Signs - 24 hr 05/27/21 14:00 05/27/21 14:42 05/27/21 14:49 Temperature 96.7 F L Pulse Rate 96 85 92 Respiratory Rate 16 16 16 Blood Pressure 114/64 Pulse Oximetry 96 05/27/21 20:30 05/27/21 20:38 05/27/21 22:00 Temperature 97.8 F Pulse Rate 99 100 104 H Respiratory Rate 20 22 H 18 Blood Pressure 143/71 H Pulse Oximetry 96 05/28/21 06:00 05/28/21 08:41 05/28/21 08:49 Temperature 97.2 F L Pulse Rate 96 101 H 88 Respiratory Rate 16 18 18 Blood Pressure 127/72 Pulse Oximetry 97 91 Intake/Output
[2021-05-28 17:00] LABS: Glucose Point of Care 160 mg/dl (65-105)
[2021-05-28 21:49] LABS: Glucose Point of Care 140 mg/dl (65-105)
[2021-05-29] VITALS (10 sets, daily range): BP systolic 126–144; BP diastolic 67–72; PULSE 52–97; RESP 16–18; TEMP 35.7–36.1; O2SAT 97–98
[2021-05-29] MEDS: ALBUTEROL SULFATE NEB 2.5 MG/0.5 ML INH INHALATION ×4 (02:14→19:27)
[2021-05-29] MEDS: IPRATROPIUM BR 0.02% INH SOLN 0.5 MG/2.5 ML VIAL INHALATION ×4 (02:15→19:28)
--- NOTE | 2021-05-29 02:15 | PCRCNOTE ---
Window of time for administration has passed. See next scheduled administration.
[2021-05-29] MEDS: HEPARIN SODIUM 5,000 UNITS/ML VIAL 5000 UNITS SUB-Q ×3 (05:08→20:27)
--- NOTE | 2021-05-29 09:40 | PM.IMPN ---
Progress Note: A&P Assessment and Plan (1) CAP (community acquired pneumonia): Qualifiers: Laterality: right Lung location: unspecified part of lung Qualified Code(s): J18.9 - Pneumonia, unspecified organism Code(s): J18.9 - Pneumonia, unspecified organism Status: Acute Assessment and Plan: COMPLETED ANTIBIOTICS (VANC/ZOSYN) IN NEED OF REHAB FOR POST ACUTE ILLNESS DEBILITY (2) Type 2 diabetes mellitus with hyperglycemia: Qualifiers: Diabetes mellitus halfway insulin use: without superintendent marine oil terminal use Qualified Code(s): E11.65 - Type 2 diabetes mellitus with hyperglycemia Code(s): E11.65 - Type 2 diabetes mellitus with hyperglycemia Status: Acute Assessment and Plan: CONTINUE SSI (3) YADIRA (obstructive sleep apnea): Code(s): G47.33 - Obstructive sleep apnea (adult) (pediatric) Status: Acute (4) Acute respiratory failure with hypoxia: Code(s): J96.01 - Acute respiratory failure with hypoxia Status: Acute Assessment and Plan: RESOLVED (5) Post-COVID chronic fatigue: Code(s): R53.82 - Chronic fatigue, unspecified; B94.8 - Sequelae of other specified infectious and parasitic diseases Status: Acute (6) GERD (gastroesophageal reflux disease): Qualifiers: Esophagitis presence: esophagitis presence not specified Qualified Code(s): K21.9 - Gastro-esophageal reflux disease without esophagitis Code(s): K21.9 - Gastro-esophageal reflux disease without esophagitis Status: Acute (7) Cirrhosis of liver: Qualifiers: Hepatic cirrhosis type: unspecified hepatic cirrhosis Ascites presence: without ascites Qualified Code(s): K74.60 - Unspecified cirrhosis of liver Code(s): K74.60 - Unspecified cirrhosis of liver Status: Acute (8) Type 2 myocardial infarction: Code(s): I21.A1 - Myocardial infarction type 2 Status: Acute Assessment and Plan: W/O SX'S CARDIOLOGY SIGNED OFF (9) Chronic depression: Code(s): F32.9 - Major depressive disorder, single episode, unspecified Status: Acute (10) BOONE (acute kidney injury): Code(s): N17.9 - Acute kidney failure, unspecified Status: Acute Assessment and Plan: 05/25 creatinine 1.4, 05/26 1.3, 05/27 1.2, 05/28 1.2 (11) Shock: Code(s): R57.9 - Shock, unspecified Status: Acute Additional Plan 05/29/21 Continue PT OT Patient unable to ambulate will need aggressive physical therapy Awaiting evaluation from SNF in [place], [place] and ins approval. Continue current care Subjective Date/time seen: 05/29/21 09:40 Patient appears to be oriented but appears to have some cognitive impairment which now seems to be her new baseline cognitive status Exam Narrative: HEENT: sclerae nonicteric, pharyngeal mucosa pink and intact Alert. Oriented. NECK: No JVD CHEST: Clear anteriorly. Decreased BS at bases Normal effort. HEART: NL S1/S2, regular, no murmur ABDOMEN: BS+, soft, nontender, no mass, no bruits EXTREMITIES: No cyanosis, edema, or clubbing NEUROLOGIC: CN intact and symmetric to inspection. MUSCULOSKELETAL: Tone symmetric, no tremors PSYCH: Unable to evaluate Objective Data Vital Signs Vital Signs: Vital Signs - 24 hr 05/28/21 20:22 05/28/21 20:29 05/28/21 21:37 Temperature 97 F L Pulse Rate 91 94 97 Respiratory Rate 16 18 20 Blood Pressure 133/71 Pulse Oximetry 97 05/29/21 05:08 05/29/21 08:25 05/29/21 08:33 Temperature 96.3 F L Pulse Rate 96 92 97 Respiratory Rate 16 18 18 Blood Pressure 144/67 H Pulse Oximetry 98 05/29/21 14:00 05/29/21 14:34 05/29/21 14:41 Temperature 97.0 F L Pulse Rate 52 L 88 94 Respiratory Rate 18 18 18 Blood Pressure 126/67 Pulse Oximetry 97 Intake/Output Intake/Output: Intake & Output 05/26/21 05/27/21 05/28/21 05/29/21 23:59 23:59 23:59 23:59 Intake Total 946 153 0028 240 Output Total 1373 0965 Balance -119
[2021-05-29 10:37] LABS: Glucose Point of Care 149 mg/dl (65-105)
[2021-05-29] MEDS: ASPIRIN 325 MG TABLET PO (10:37)
[2021-05-29] MEDS: ATORVASTATIN 10 MG TABLET PO (10:37)
[2021-05-29] MEDS: PANTOPRAZOLE 40 MG TABLET PO (10:37)
[2021-05-29] MEDS: INSULIN GLARGINE (*BKC) 100 UNITS/ML 25 UNITS SUB-Q (10:39)
[2021-05-29 12:13] LABS: Glucose Point of Care 144 mg/dl (65-105)
--- NOTE | 2021-05-29 13:19 | PCOTNOTE ---
Attempted to see patient this pm, however patient agitated and yelling out upon entering, NO, I don't need anything! I don't need or want anything from anyone! I want to go home! Do you understand? I've been here for 4 months, and they're shutting down the hospital because of covid. I just want to go home!
--- NOTE | 2021-05-29 13:25 | PCNWS ---
nutrition follow up. Patient is tolerating current diet-soft and bite sized, Level 6/DBCC with adequate intake. weight stable. No nutritional needs at this time.
[2021-05-29 17:56] LABS: Glucose Point of Care 113 mg/dl (65-105)
[2021-05-29 20:55] LABS: Glucose Point of Care 142 mg/dl (65-105)
[2021-05-29] MEDS: ACETAMINOPHEN 325 MG TABLET 650 MG PO (22:13)
[2021-05-30] MEDS: ALBUTEROL SULFATE NEB 2.5 MG/0.5 ML INH INHALATION ×3 (03:22→08:42)
[2021-05-30] MEDS: IPRATROPIUM BR 0.02% INH SOLN 0.5 MG/2.5 ML VIAL INHALATION ×3 (03:22→08:42)
[2021-05-30 03:24] VITALS: PULSE 56; RESP 18
[2021-05-30] MEDS: HEPARIN SODIUM 5,000 UNITS/ML VIAL 5000 UNITS SUB-Q (05:36)
[2021-05-30 06:00] VITALS: BP 147/58; PULSE 102; RESP 18; TEMP 36.6; O2SAT 95
[2021-05-30 06:29] LABS: Glucose Point of Care 172 mg/dl (65-105)
[2021-05-30] MEDS: ACETAMINOPHEN 325 MG TABLET 650 MG PO (07:47)
[2021-05-30] MEDS: ASPIRIN 325 MG TABLET PO (08:37)
[2021-05-30] MEDS: PANTOPRAZOLE 40 MG TABLET PO (08:37)
[2021-05-30] MEDS: ATORVASTATIN 10 MG TABLET PO (08:38)
[2021-05-30] MEDS: INSULIN GLARGINE (*BKC) 100 UNITS/ML 25 UNITS SUB-Q (08:38)
[2021-05-30 08:43] VITALS: O2SAT 96
[2021-05-30 08:44] VITALS: PULSE 56; RESP 16
[2021-05-30 08:57] VITALS: PULSE 56; RESP 16
--- NOTE | 2021-05-30 09:35 | PM.DS ---
DS: Admitting Diagnosis Admitting Diagnosis (1) CAP (community acquired pneumonia): Qualifiers: Laterality: right Lung location: unspecified part of lung Qualified Code(s): J18.9 - Pneumonia, unspecified organism Code(s): J18.9 - Pneumonia, unspecified organism Status: Acute Assessment and Plan: DDx: Bacterial pneumonia (usual CAP organisms), viral pneumonia (COVID-19 unlikely), fungal pneumonia (due to exposure to dust at [email or web address]), hx does not suggest aspiration Blood cultures were obtained at [facility] She is unable to produce sputum for culture Ceftriaxone and azithromycin (hold citalopram while on macrolide) Monitor response (2) Acute respiratory failure with hypoxia: Code(s): J96.01 - Acute respiratory failure with hypoxia Status: Acute Assessment and Plan: Due to pneumonia Wean oxygen to nasal cannual as tolerated Use cpap on home settings at night She received one dose of Solu-Medrol at [facility], but due to DM2 and lack of evidence for bronchospasm, the risk seems exceed the potential benefit (3) Type 2 myocardial infarction: Code(s): I21.A1 - Myocardial infarction type 2 Status: Acute Assessment and Plan: Due to hypoxia. No ACS Echo F/u TnI (4) Hypomagnesemia: Code(s): E83.42 - Hypomagnesemia Status: Acute Assessment and Plan: Likely due to chronic diuretic therapy Hold furosemide IV Mag F/u lab (5) Type 2 diabetes mellitus with hyperglycemia: Qualifiers: Diabetes mellitus assisted insulin use: without assisted use Qualified Code(s): E11.65 - Type 2 diabetes mellitus with hyperglycemia Code(s): E11.65 - Type 2 diabetes mellitus with hyperglycemia Status: Acute Assessment and Plan: Continue sitagliptin SSI A1c (6) Essential hypertension: Code(s): I10 - Essential (primary) hypertension Status: Acute Assessment and Plan: Continue home regimen Monitor (7) YADIRA (obstructive sleep apnea): Code(s): G47.33 - Obstructive sleep apnea (adult) (pediatric) Status: Acute Assessment and Plan: Home settings for cpap (8) Post-COVID chronic fatigue: Code(s): R53.82 - Chronic fatigue, unspecified; B94.8 - Sequelae of other specified infectious and parasitic diseases Status: Acute Assessment and Plan: Will require graduated exercise program, healthy diet, mindfulness (9) GERD (gastroesophageal reflux disease): Qualifiers: Esophagitis presence: esophagitis presence not specified Qualified Code(s): K21.9 - Gastro-esophageal reflux disease without esophagitis Code(s): K21.9 - Gastro-esophageal reflux disease without esophagitis Status: Acute Assessment and Plan: Continue PPI (10) Chronic low back pain without sciatica: Qualifiers: Back pain laterality: bilateral Qualified Code(s): M54.5 - Low back pain; G89.29 - Other chronic pain Code(s): M54.5 - Low back pain; G89.29 - Other chronic pain Status: Acute Assessment and Plan: Continue ibuprofen (uses OTC at home) (11) Cirrhosis of liver: Qualifiers: Hepatic cirrhosis type: unspecified hepatic cirrhosis Ascites presence: without ascites Qualified Code(s): K74.60 - Unspecified cirrhosis of liver Code(s): K74.60 - Unspecified cirrhosis of liver Status: Acute Assessment and Plan: Screen for hep B, C (12) Vaping nicotine dependence, tobacco product: Code(s): F17.290 - Nicotine dependence, other tobacco product, uncomplicated Status: Acute Assessment and Plan: Strongly encourage quitting (13) Morbid obesity with BMI of 50.0-59.9, adult: Code(s): E66.01 - Morbid (severe) obesity due to excess calories; Z68.43 - Body mass index [BMI] 50.0-59.9, adult Status: Acute Assessment and Plan: Diabetic diet (14) Chronic depression: Code(s): F
== END 2021-05-30 11:40 | DRG 870 ==
LOC: ANHIMU 15:25 → ANH3MED 05-23 01:24 → ANHICU 05-31 14:24 → ANHIMU 05-31 14:24
PROVIDERS: Internal Medicine; Internal Medicine Nephrology; Admitting Provider Internal Medicine; Visit Provider Hospitalist
DX: A41.9 Sepsis, unspecified organism (principal); J18.9 Pneumonia, unspecified organism; J96.01 Acute respiratory failure with hypoxia; J81.0 Acute pulmonary edema; I21.4 Non-ST elevation (NSTEMI) myocardial infarction; J96.02 Acute respiratory failure with hypercapnia; R65.21 Severe sepsis with septic shock; Z68.42 Body mass index [BMI] 45.0-49.9, adult; R57.9 Shock, unspecified; N17.9 Acute kidney failure, unspecified; M62.82 Rhabdomyolysis; E87.3 Alkalosis; G89.29 Other chronic pain; M47.9 Spondylosis, unspecified; I10 Essential (primary) hypertension; E78.5 Hyperlipidemia, unspecified; K21.9 Gastro-esophageal reflux disease without esophagitis; F32.9 Major depressive disorder, single episode, unspecified; M54.5 Low back pain; K74.60 Unspecified cirrhosis of liver; E66.01 Morbid (severe) obesity due to excess calories; G47.33 Obstructive sleep apnea (adult) (pediatric); R53.82 Chronic fatigue, unspecified; B94.8 Sequelae of other specified infectious and parasitic diseases; F17.290 Nicotine dependence, other tobacco product, uncomplicated; E83.42 Hypomagnesemia; T50.2X5A Adverse effect of carbonic-anhydrase inhibitors, benzothiadiazides and other diuretics, initial encounter; Y92.9 Unspecified place or not applicable; E11.65 Type 2 diabetes mellitus with hyperglycemia; Z87.01 Personal history of pneumonia (recurrent); Z79.84 Long term (current) use of oral hypoglycemic drugs; E78.1 Pure hyperglyceridemia
CPT/HCPCS: 31500; 36415; 36600; 70450; 71045; 76705; 76775; 80053; 80069; 80074; 80202; 81001; 82375; 82436; 82550; 82565; 82570; 82607; 82746; 82805; 82948; 83036; 83050; 83605; 83735; 83880; 84100; 84133; 84300; 84439; 84443; 84478; 84480; 84484; 85025; 85027; 85610; 85730; 85999; 87040; 87070; 87086; 87205; 92610; 93005; 93306; 93970; 94002; 94003; 94640; 97110; 97163; 97166; 97530; 97535; A9270; C1751; C9113; C9803; J0360; J1644; J1815; J1940; J2250; J2270; J2543; J2704; J2765; J3010; J3370; J3475; J3480; U0003; U0005